=== PATIENT | male | born 1965 | race African-American/Black ===

== ENCOUNTER 2016-12-09 07:11 | Inpatient (IN) | payer OTHER ==
[2016-12-09] VITALS (11 sets, daily range): BP systolic 124–169; BP diastolic 73–97; PULSE 78–101; RESP 16–18; TEMP 98.1–99.6; O2SAT 92–100
[~2016-12-09] VITALS: Ht 182.9 cm; Wt 81.9 kg
[2016-12-09] MEDS ORDERED: SODIUM CHLOR 0.9% 1000 ML INJ 1,000 ML IV SCH (07:46)
--- NOTE | 2016-12-09 07:47 | PD ---
HPI Chief Complaint: GI Complaint Time Seen by Provider: 07:25 Travel History International Travel<30 days: No Contact w/Intl Traveler<30days: No Traveled to known affect area: No History of Present Illness HPI Patient is a 51-year-old male presents emergency department for nausea and vomiting for the past 7-8 days. Patient states 7-8 days ago he ate some and tachycardia fried chicken and then started to feel fairly bad from it and the symptoms just been gradually worse. He states this point is not able to keep anything down. On review of systems the patient also endorses some increased abdominal distention and states he's been sweaty and hot occasionally but has not had any objective fevers at home. Patient states he has been diagnosed prediabetic but otherwise healthy and does not take any medicines. Denies any hematemesis denied any hematochezia. [facility] Past Medical History Medical History: Denies Significant Hx Influenza Vaccination: No Past Surgical History Surgical History: No Previous Surgery Social History Alcohol Use: Yes (OCCAS BEER) Tobacco Use: Yes Substance Use: No Allergies-Medications (Allergen,Severity, Reaction): Coded Allergies: No Known Allergies (Verified Allergy, Unknown, 12/09/16) Reported Meds & Prescriptions Reported Meds & Active Scripts Active No Active Prescriptions or Reported Medications Review of Systems Except as stated in HPI: all other systems reviewed are Neg Physical Exam Narrative GENERAL: Well-developed well-nourished, appears fairly comfortable. Nontoxic appearance. SKIN: Focused skin assessment warm/dry. HEAD: Atraumatic. Normocephalic. EYES: Pupils equal and round. No scleral icterus. No injection or drainage. ENT: No nasal bleeding or discharge. Mucous membranes pink and moist. NECK: Trachea midline. No JVD. CARDIOVASCULAR: Regular rate and rhythm. No murmur appreciated. RESPIRATORY: No accessory muscle use. Clear to auscultation. Breath sounds equal bilaterally. GASTROINTESTINAL: Abdomen soft, minimally tender in the right lower and left lower quadrant, mildly distended.. Hepatic and splenic margins not palpable. No rebound no percussive tenderness. MUSCULOSKELETAL: No obvious deformities. No clubbing. No cyanosis. No edema. NEUROLOGICAL: Awake and alert. No obvious cranial nerve deficits. Motor grossly within normal limits. Normal speech. PSYCHIATRIC: Appropriate mood and affect; insight and judgment normal. Data Data Last Documented VS Vital Signs Date Time Temp Pulse Resp B/P (MAP) Pulse Ox O2 Delivery O2 Flow Rate FiO2 12/09/16 09:34 82 18 152/80 (104) 98 Room Air 12/09/16 07:16 98.1 Orders Orders Complete Blood Count With Diff (12/09/16 07:46) Comprehensive Metabolic Panel (12/09/16 07:46) Lipase (12/09/16 07:46) Iv Access Insert/Monitor (12/09/16 07:46) Ecg Monitoring (12/09/16 07:46) Oximetry (12/09/16 07:46) Ondansetron Inj (Zofran Inj) (12/09/16 08:00) Sodium Chlor 0.9% 1000 Ml Inj (Ns 1000 M (12/09/16 07:46) Sodium Chloride 0.9% Flush (Ns Flush) (12/09/16 08:00) Abdomen, Upright Only (12/09/16 07:46) Ketorolac Inj (Toradol Inj) (12/09/16 08:00) Ct Abd/Pel W Iv Contrast(Rout) (12/09/16 ) Blood Culture (12/09/16 08:49) Lactic Acid (12/09/16 08:49) Vancomycin Inj (Vancomycin Inj) (12/09/16 09:00) Piperacil-Tazo 4.5 Gm Premix (Zosyn 4.5 (12/09/16 09:00) Sodium Chlor 0.9% 1000 Ml Inj (Ns 1000 M (12/09/16 09:00) Iohexol 350 Inj (Omnipaque 350 Inj) (12/09/16 08:50) Admit Order (Ed Use Only) (12/09/16 ) Labs Laboratory Tests Test 12/09/16 08:04 12/09/16 09:20 White Blood Count 15.9 TH/MM3 Red Blood Count 4.72 MIL/MM3 Hemoglobin 13.3 GM/DL Hematocrit 40.0 % Mean Corpuscular Volume 84.8 FL Mean Corpuscular Hemoglobin 28.2 PG Mean Corpuscular Hemoglobin Concent 33.3 % Red Cell Distribution Width 12.8 % Platelet Count 364 TH/MM3 Mean Platelet Volume 8.2 FL Neutrophils (%) (Auto) 79.5 % Lymphocytes (%) (Auto) 11.3 % Monocytes (%) (Auto) 7.5 % Eosinophils (%) (Auto) 0.0 % Basophils (%) (Auto) 1.7 % Neutrophils # (Auto) 12.6 TH/MM3 Lymphocytes # (Auto) 1.8 TH/MM3 Monocytes # (Auto) 1.2 TH/MM3 Eosinophils # (Auto) 0.0 TH/MM3 Basophils # (Auto) 0.3 TH/MM3 CBC Comment DIFF FINAL Differential Comment Blood Urea Nitrogen 13 MG/DL Creatinine 1.30 MG/DL Random Glucose 335 MG/DL Total Protein 8.8 GM/DL Albumin 2.2 GM/DL Calcium Level 9.0 MG/DL Alkaline Phosphatase 164 U/L Aspartate Amino Transf (AST/SGOT) 20 U/L Alanine Aminotransferase (ALT/SGPT) 24 U/L Total Bilirubin 0.4 MG/DL Sodium Level 129 MEQ/L Potassium Level 3.7 MEQ/L Chloride Level 91 MEQ/L Carbon Dioxide Level 29.9 MEQ/L Anion Gap 8 MEQ/L Estimat Glomerular Filtration Rate 70 ML/MIN Lipase 409 U/L Lactic Acid Level 1.4 mmol/L MDM Medical Decision Making Medical Screen Exam Complete: Yes Emergency Medical Condition: Yes Differential Diagnosis Diverticulitis, appendicitis, small bowel obstruction, dehydration, electro- light abnormality. Narrative Course Patient roomed in emergency department, patient does have some mild distention and some mild tenderness with some voluntary guarding and there are quadrants. Overall the patient appears fairly well. Patient does have minimally elevated white blood cell count, small bowel obstruction was concern is patient does have decreased bowel sounds. Upright abdomen does show a nonspecific but slightly abnormal bowel gas pattern. Given his distention at the CAT scan imaging is warranted and was performed: Last 24 hours Impressions Abdomen X-Ray 12/09/16 0746 Signed Impressions: Service Date/Time: Friday, December 09, 2016 07:54 - CONCLUSION: There is no free air or definite signs of small bowel obstruction. However, the small bowel gas pattern is not completely normal. Consider followup to ensure resolution. Behzad Gutierrez MD Abdomen/Pelvis CT 12/09/16 0000 Signed Impressions: Service Date/Time: Friday, December 09, 2016 08:33 - CONCLUSION: 1. There is a 10.8 cm extraluminal air and fluid collection/abscess in the upper pelvis. This is likely related to some type of bowel perforation. This could be related to a loculated perforated appendicitis or potentially small bowel perforation from ruptured diverticulum or uncertain etiology. It does not appear to be related to sigmoid diverticulitis. Suggest surgical consultation. This may be accessible on the left lateral pelvis for percutaneous drainage, if needed. 2. There are 2 hypodense lesions in the right liver measuring up to 2 cm which are incompletely characterized and do not meet criteria for cysts or hemangiomas on this exam. Suggest clinical or imaging studies. If none are available suggest either liver ultrasound or liver MRI for further characterization. These findings were discussed with Dr. Schumacher via telephone at the time of this dictation. Behzad Gutierrez MD Patient was discussed with Dr. Swartz as well as Dr. Malagon. Dr. Warner will admit to the hospital agrees with vancomycin and Zosyn. He requests IR intervention and this was discussed again with Dr. Swartz. Patient will be transferred to the main hospital for further surgical interventional radiology management. Critical Care Narrative Aggregate critical care time was 35 minutes. Time to perform other separately billable procedures was not included in the critical care time. My time did not include minutes spent treating any other patients simultaneously or on activities that did not directly contribute to the patient's treatment. The services I provided to this patient were to treat and/or prevent clinically significant deterioration that could result in: , disability, organ failure. I provided critical care services requiring my management, as noted below: Chart data review, documentation time, medication orders and management, vital sign assessments/reviewing monitor data, ordering and reviewing lab tests, ordering and interpreting/reviewing x-rays and diagnostic studies, care of the patient and discussion of the patient with the admitting physicians. Diagnosis Primary Impression: Sepsis Additional Impression: Intra-abdominal abscess Scripts No Active Prescriptions or Reported Meds Disposition: 01 DISCHARGE HOME Condition: Stable Devan Schumacher MD Dec 09, 2016 07:47
[2016-12-09] MEDS ORDERED: ONDANSETRON HCL 4 MG/2 ML VIAL IVP ONE (08:00)
[2016-12-09] MEDS ORDERED: KETOROLAC TROMETHAMINE 30 MG/ML (IVP) VIAL IVP ONE (08:00)
--- NOTE | 2016-12-09 08:06 | RADRPT ---
EXAM DATE/TIME: 12/09/2016 07:54 [facility] COMPARISON: No previous studies available for comparison. INDICATIONS : Abdomen pain, nausea, vomiting MEDICAL HISTORY : None. SURGICAL HISTORY : None. ENCOUNTER: Initial ACUITY: 1 week PAIN SCORE: 10/10 LOCATION: Bilateral abdomen FINDINGS: Single upright view the abdomen demonstrates air within small and large bowel in a nonobstructive pat tern. However, there is more air in the small bowel than typically seen. Air-fluid level is present w ithin a segment of bowel in the upper pelvis which could represent colon or small intestine. Air-flui d level is present in the stomach. There is no free intraperitoneal air. No concerning calcifications are identified. Bones demonstrate no acute abnormality. Lung bases are clear. CONCLUSION: There is no free air or definite signs of small bowel obstruction. However, the small bowel gas patte rn is not completely normal. Consider followup to ensure resolution. Behzad Gutierrez MD on December 09, 2016 at 8:03 Board Certified Radiologist. This report was verified electronically.
[2016-12-09] MEDS: SODIUM CHLORIDE 0.9% FLUSH 10 ML FLUSH IV FLUSH PRN ×2 (08:13→10:37)
[2016-12-09 08:16] LABS: AUTOMATED NEUTROPHIL # 12.6 TH/MM3 (1.8-7.7); BASOPHIL # 0.3 TH/MM3 (0-0.2); BASOPHIL % 1.7 % (0.0-2.0); LYMPH % 11.3 % (9.0-44.0); LYMPHOCYTE # 1.8 TH/MM3 (1.0-4.8); MEAN CELL VOLUME 84.8 FL (80.0-100.0); MEAN CORPUSCULAR HEMOGLOBIN 28.2 PG (27.0-34.0); MEAN CORPUSCULAR HGB CONC 33.3 % (32.0-36.0); MONO % 7.5 % (0.0-8.0); NEUT % 79.5 % (16.0-70.0); PLATELET COUNT 364 TH/MM3 (150-450); RED BLOOD COUNT 4.72 MIL/MM3 (4.50-5.90); RED CELL DISTRIBUTION WIDTH 12.8 % (11.6-17.2); WHITE BLOOD COUNT 15.9 TH/MM3 (4.0-11.0)
[2016-12-09 08:17] LABS: HEMO FLAGS DIFF FINAL
[2016-12-09 08:21] LABS: CHLORIDE 91 MEQ/L (98-107); POTASSIUM 3.7 MEQ/L (3.5-5.1); SODIUM (NA) 129 MEQ/L (136-145)
[2016-12-09 08:25] LABS: ANION GAP 8 MEQ/L (5-15); BICARBONATE 29.9 MEQ/L (21.0-32.0); BLOOD UREA NITROGEN 13 MG/DL (7-18)
[2016-12-09 08:28] LABS: ALT (GPT) 24 U/L (12-78); AST (GOT) 20 U/L (15-37); GLOMERULAR FILTRATION RATE 70 ML/MIN (>89)
[2016-12-09 08:29] LABS: TOTAL BILIRUBIN ADULT 0.4 MG/DL (0.2-1.0)
[2016-12-09 08:31] LABS: ALKALINE PHOSPHATASE 164 U/L (45-117)
[2016-12-09] MEDS ORDERED: IOHEXOL 350 MG/ML 10 ML VIAL (for RAD DIAG) IV PUSH ONE (08:50)
[2016-12-09] MEDS ORDERED: PIPERACIL-TAZO 4.5 GM PREMIX 100 ML IV ONE (09:00)
[2016-12-09] MEDS ORDERED: SODIUM CHLOR 0.9% 1000 ML INJ 1,000 ML IV ONE (09:00)
[2016-12-09] MEDS ORDERED: VANCOMYCIN INJ 1,000 MG in SODIUM CHLOR 0.9% 250 ML INJ 250 ML IV ONE (09:00)
--- NOTE | 2016-12-09 09:02 | RADRPT ---
EXAM DATE/TIME: 12/09/2016 08:33 [facility] COMPARISON: ABDOMEN UPRIGHT ONLY, December 09, 2016, 7:54. INDICATIONS : Abdomen pain. IV CONTRAST: 80 cc Omnipaque 350 (iohexol) IV ORAL CONTRAST: No oral contrast ingested. RADIATION DOSE: 8.9 CTDIvol (mGy) MEDICAL HISTORY : None SURGICAL HISTORY : None. ENCOUNTER: Initial ACUITY: 1 week PAIN SCALE: 5/10 LOCATION: Bilateral abdomen TECHNIQUE: Volumetric scanning of the abdomen and pelvis was performed. Using automated exposure control and ad justment of the mA and/or kV according to patient size, radiation dose was kept as low as reasonably achievable to obtain optimal diagnostic quality images. DICOM format image data is available electro nically for review and comparison. FINDINGS: LOWER LUNGS: The visualized lower lungs are clear. LIVER: The liver measures 22.3 cm and contains 2 low-density lesions in the right lobe that do not meet crit eria for cysts or hemangiomas. The more anterior and superior measures 14 mm and the more posterior m easures 2 cm. There are small stones in the gallbladder There is no dilation of the biliary tree. . SPLEEN: Normal size without lesion. PANCREAS: Within normal limits. KIDNEYS: Normal in size and shape. There is no mass, stone or hydronephrosis. ADRENAL GLANDS: Within normal limits. VASCULAR: There is no aortic aneurysm. There is mild atherosclerotic disease and retroperitoneal inflammatory c hanges around the infrarenal aorta and LATHA secondary to the extraluminal air and fluid collection. BOWEL/MESENTERY: The stomach and proximal small bowel are within normal limits. There is an extraluminal air and fluid collection in the inferior abdomen and upper pelvis measuring approximately 10.8 x 8.6 x 9.3 cm. It contains fluid and fecal like material and demonstrates air-fluid level. There is small bowel draped around the anterior and right lateral aspect of the fluid collection and the collection abuts the cec um. It is adjacent to the sigmoid colon which may be secondarily inflamed but no diverticula are visu alized and there is a fat plane between the collection and sigmoid colon. There are a few mildly enla rged a small bowel mesenteric lymph nodes which are likely reactive. There are no signs of bowel obst ruction. Trace free fluid is present in the pelvis. ABDOMINAL WALL: Within normal limits. RETROPERITONEUM: There is no lymphadenopathy. BLADDER: No wall thickening or mass. REPRODUCTIVE: Within normal limits. INGUINAL: There is no lymphadenopathy. There is a small fat containing right inguinal hernia. MUSCULOSKELETAL: No acute abnormality. CONCLUSION: 1. There is a 10.8 cm extraluminal air and fluid collection/abscess in the upper pelvis. This is like ly related to some type of bowel perforation. This could be related to a loculated perforated appendi citis or potentially small bowel perforation from ruptured diverticulum or uncertain etiology. It avila s not appear to be related to sigmoid diverticulitis. Suggest surgical consultation. This may be acce ssible on the left lateral pelvis for percutaneous drainage, if needed. 2. There are 2 hypodense lesions in the right liver measuring up to 2 cm which are incompletely mk cterized and do not meet criteria for cysts or hemangiomas on this exam. Suggest clinical or imaging studies. If none are available suggest either liver ultrasound or liver MRI for further characterizat ion. These findings were discussed with Dr. Schumacher via telephone at the time of this dictation. Behzad Gutierrez MD on December 09, 2016 at 8:47 Board Certified Radiologist. This report was verified electronically.
[2016-12-09] MEDS: SODIUM CHLOR 0.9% 1000 ML INJ 1,000 ML IV SCH ×2 (12:56→23:41)
[2016-12-09] MEDS ORDERED: SODIUM CHLORIDE 0.9% FLUSH 10 ML FLUSH IV FLUSH PRN (13:00)
[2016-12-09] MEDS ORDERED: NALOXONE HCL 0.4 MG/ML AMP IV PRN (13:00)
[2016-12-09] MEDS ORDERED: ONDANSETRON HCL 4 MG/2 ML VIAL IV PRN (13:00)
[2016-12-09] MEDS ORDERED: Post-op Orders (for Pharmacy) MISC XX ONE (13:00)
[2016-12-09] MEDS ORDERED: MORPHINE SULFATE 4 MG/ML INJ IV PRN (13:00)
--- NOTE | 2016-12-09 13:16 | MH ---
cc: MILI AYALA MD DATE OF ADMISSION: 12/09/2016 ADMITTING DIAGNOSIS: Intra-abdominal abscess, large bowel perforation, sepsis, abdominal pain, HISTORY OF PRESENT DISEASE: This 51-year-old male presents to the [facility] emergency room with 1-week history of severe abdominal pain. The patient states he ate some sort of chicken a week ago, became violently ill, had abdominal pain, nausea and diarrhea. The diarrhea stopped, yet the pain is still severe and the patient finally presented to the emergency room. On workup he was found to have intra-abdominal interloop abscess and he is now being admitted for further care. PAST MEDICAL HISTORY, PAST SURGICAL HISTORY: Negative. MEDICATIONS: None. ALLERGIES: None. SOCIAL HISTORY: The patient works as a cook. He smokes and drinks socially. PHYSICAL EXAMINATION: Reveals a 51 year-old male in no acute distress. HEENT: Normocephalic. No trauma to the head. Pupils equal and reactive. Extraocular movements intact. NECK: Supple. Bilateral carotid pulses. CHEST: Clear. Bilateral breath sounds. HEART: Regular rhythm. ABDOMEN: Soft. Hypoactive bowel sounds. On palpation, very tender in the pelvis and there is a mass noted in the infraumbilical position and midline. If I did not know better, I would think it is a distended bladder but obviously in this case this is an interloop abdominal abscess which is easily palpable by the exam. No splenomegaly. No hepatosplenomegaly. EXTREMITIES: Within normal limits including proximal and distal pulses. No vascular deficit. BACK: Normal. LABORATORY DATA: Reviewed laboratory diagnostic procedures. ASSESSMENT AND PLAN: The patient had CTA of the abdomen and pelvis which confirms the same. There is an interloop abscess measuring about 10 cm in diameter, fairly well defined. My first thought this may be a perforated Meckel's diverticulum but then again it could also be a perforation from different source, like fish bone or chicken bone as well as possibly perforated diverticulitis or more likely appendicitis. Unusual causes like a unrecognized occult malignancy have to be considered as well. Either way, at this point the therapy is the same. The patient needs CT guided aspiration of the same. He will be placed on intravenous antibiotics and then in the next few days will do upper GI study with small bowel follow-through and see where this is coming from. In the future the patient will need surgery for this and the only question is when and which procedure, but this will be determined in the future. At this point the patient needs to be admitted, treated with antibiotics and have aspiration. Mili SALAS /12:53 PM /1:04 PM MARIYA
[2016-12-09 14:16] LABS: INTERNATIONAL NORMALIZED RATIO 1.1 RATIO
[2016-12-09] MEDS ORDERED: LIDOCAINE HCL 1% 20 ML VIAL ONE (16:54)
[2016-12-09] MEDS ORDERED: MIDAZOLAM HCL 2 MG/2 ML VIAL ONE (17:00)
--- NOTE | 2016-12-09 18:27 | PD.RAD ---
Post CT Procedure Prog Note Pre Procedure Diagnosis: (1) Intra-abdominal abscess (2) Sepsis Post Procedure Diagnosis: (1) Intra-abdominal abscess (2) Sepsis Procedure Date: Dec 09, 2016 Supervising Radiologist: Kirt Angeles Anesthesia: Local, Analgesia, Conscious Sedation Plan of Activity Patient to Unit: [facility]OPU Patient Condition: Good See PACS Report for procedural detail/treatment Drainage Procedure Procedure 1 Imaging Guidance: CT Side: Left Procedure Type: Abscess Drainage (Peritoneal) Procedure: Placement Urdu: 10 Drainage: Suction (Accordian) Fluid Description: Purulent Findings: 10cc aspirated and sent to Kirt Fletcher MD Dec 09, 2016 18:27
--- NOTE | 2016-12-09 18:53 | RADRPT ---
EXAM DATE/TIME: 12/09/2016 17:41 [facility] COMPARISON: No previous studies available for comparison. INDICATIONS : Abdominal abscess. SEDATION TIME: MEDICATION(S): 1.) 2 mg midazolam (Versed) IV 2.) 100 mcg fentanyl (Sublimaze) IV DEVICE(S): 1.) 10 Fr [id number] FLUID: Total volume of 10 cc of couch, purulent fluid was removed. Fluid was sent for laboratory ordered studies. MEDICAL HISTORY : None. SURGICAL HISTORY : None. ENCOUNTER: Initial ACUITY: 1 day PAIN SCORE: 6/10 LOCATION: abdomen PROCEDURE: 1.) Conscious sedation with continuous EKG and oximetry monitoring. 2.) EKG and oximetry remained stable throughout the procedure. PROCEDURE : 1. CT guided drainage of the peritoneal abscess 2. Conscious sedation with continuous EKG and oximetry monitoring. The risks, benefits and alternatives to the procedure were explained and verbal and written consent w as obtained. Using automated exposure control and adjustment of the mA and/or kV according to patient size, radiation dose was kept as low as reasonably achievable to obtain optimal diagnostic quality i mages. The site was prepped in sterile fashion. Full sterile technique was used, including cap, ma sk, sterile gloves and gown and a large sterile sheet. Hand hygiene and 2% chlorhexidine and/or beta dine/alcohol prep was utilized per protocol for cutaneous antisepsis. The skin and subcutaneous tiss ues were infiltrated with local anesthetic solution. DICOM format image data is available electronic ally for review and comparison. Using CT guidance the prescribed site was localized. Drainage was performed using the prescribed cat heter The patient tolerated the procedure well and there were no complications. Conscious sedation was per formed with the prescribed dosages and duration as above in the presence of an independent trained ra diology nurse to assist in the monitoring of the patient. EKG and oximetry remained stable throughou t the procedure. The patient tolerated the procedure well and there were no complications. The patient was sent to pos t anesthesia recovery in stable condition. CONCLUSION: Uncomplicated CT guided drainage. 10 cc of couch, purulent fluid was aspirated from the catheter and sent to laboratory for analysis Kirt Angeles MD on December 09, 2016 at 18:49 Board Certified Radiologist. This report was verified electronically.
[2016-12-09] MEDS: PIPERACIL-TAZO 3.375 GM PREMIX 50 ML IV SCH (20:40)
[2016-12-09] MEDS: SODIUM CHLORIDE 0.9% FLUSH 10 ML FLUSH IV FLUSH SCH (20:41)
[2016-12-09] MEDS: DOCUSATE SODIUM 100 MG CAP PO SCH (20:41)
[2016-12-09] MEDS: FAMOTIDINE 20 MG TAB PO SCH (20:41)
[2016-12-09] MEDS ORDERED: ACETAMINOPHEN 1000 MG/100 ML VIAL IV PRN (22:00)
[2016-12-09] MEDS: VANCOMYCIN INJ 1,000 MG in SODIUM CHLOR 0.9% 250 ML INJ 250 ML IV SCH (23:41)
[2016-12-10] VITALS (7 sets, daily range): BP systolic 99–158; BP diastolic 59–82; PULSE 83–106; RESP 18; TEMP 98.2–100.2; O2SAT 95–98
[2016-12-10] MEDS: oxyCODONE/ACETAMINOPHEN 5 MG/325 MG TAB PO PRN ×4 (01:06→23:54)
[2016-12-10] MEDS: PIPERACIL-TAZO 3.375 GM PREMIX 50 ML IV SCH ×3 (01:06→17:54)
[2016-12-10 07:22] LABS: AUTOMATED NEUTROPHIL # 8.5 TH/MM3 (1.8-7.7); BASOPHIL % 0.3 % (0.0-2.0); HEMATOCRIT 36.4 % (39.0-51.0); HEMO FLAGS DIFF FINAL; LYMPH % 18.9 % (9.0-44.0); LYMPHOCYTE # 2.2 TH/MM3 (1.0-4.8); MEAN CELL VOLUME 86.5 FL (80.0-100.0); MEAN CORPUSCULAR HGB CONC 32.3 % (32.0-36.0); MONO % 7.7 % (0.0-8.0); NEUT % 73.1 % (16.0-70.0); PLATELET COUNT 304 TH/MM3 (150-450); RED BLOOD COUNT 4.21 MIL/MM3 (4.50-5.90); WHITE BLOOD COUNT 11.6 TH/MM3 (4.0-11.0)
[2016-12-10 07:35] LABS: INDIRECT BILIRUBIN 0.4 MG/DL (0.0-0.8); TOTAL BILIRUBIN ADULT 0.7 MG/DL (0.2-1.0)
[2016-12-10] MEDS: SODIUM CHLOR 0.9% 1000 ML INJ 1,000 ML IV SCH ×2 (08:56→17:55)
[2016-12-10] MEDS: SODIUM CHLORIDE 0.9% FLUSH 10 ML FLUSH IV FLUSH SCH ×2 (09:00→20:31)
[2016-12-10] MEDS: SODIUM CHLORIDE 0.9% 10 ML VIAL IRRIGATION SCH (09:00)
[2016-12-10] MEDS: FAMOTIDINE 20 MG TAB PO SCH ×2 (09:50→20:32)
[2016-12-10] MEDS: DOCUSATE SODIUM 100 MG CAP PO SCH ×2 (09:50→20:32)
[2016-12-10] MEDS: VANCOMYCIN INJ 1,000 MG in SODIUM CHLOR 0.9% 250 ML INJ 250 ML IV SCH ×2 (11:42→23:55)
--- NOTE | 2016-12-10 11:53 | PD.CAR.PN ---
CVT Progress Note Subjective/Hospital Course: 12/10/16 Patient doing well at this time Abdomen soft with active bowel sounds and grayish yellow pus draining from the percutaneously placed pigtail catheter Will repeat CT scan of abdomen and pelvis or Saturday, but this time with oral contrast to better delineate the source of this abscess Its my opinion is probably arising either from appendix or Meckel's diverticulum the latter being most likely Antibiotic regimen reinforced with nurses today Objective: Vital Signs Date Time Temp Pulse Resp B/P (MAP) Pulse Ox O2 Delivery O2 Flow Rate FiO2 12/10/16 08:00 98.2 88 18 126/79 (95) 95 12/10/16 04:10 98.2 94 18 99/59 (72) 95 12/10/16 00:20 100.2 106 18 145/65 (91) 95 12/09/16 20:15 99.4 88 18 124/77 (93) 96 12/09/16 19:35 87 18 153/88 (109) 92 12/09/16 19:20 18 12/09/16 19:05 87 18 153/73 (99) 92 12/09/16 18:40 88 18 166/83 (110) 92 12/09/16 18:25 99.5 88 18 169/97 (121) 93 12/09/16 16:00 99.6 87 18 143/82 (102) 98 12/09/16 12:00 99.2 78 18 130/85 (100) 99 Labs: Laboratory Tests Test 12/10/16 06:35 White Blood Count 11.6 TH/MM3 (4.0-11.0) Red Blood Count 4.21 MIL/MM3 (4.50-5.90) Hemoglobin 11.8 GM/DL (13.0-17.0) Hematocrit 36.4 % (39.0-51.0) Mean Corpuscular Volume 86.5 FL (80.0-100.0) Mean Corpuscular Hemoglobin 28.0 PG (27.0-34.0) Mean Corpuscular Hemoglobin Concent 32.3 % (32.0-36.0) Red Cell Distribution Width 14.0 % (11.6-17.2) Platelet Count 304 TH/MM3 (150-450) Mean Platelet Volume 8.6 FL (7.0-11.0) Neutrophils (%) (Auto) 73.1 % (16.0-70.0) Lymphocytes (%) (Auto) 18.9 % (9.0-44.0) Monocytes (%) (Auto) 7.7 % (0.0-8.0) Eosinophils (%) (Auto) 0.0 % (0.0-4.0) Basophils (%) (Auto) 0.3 % (0.0-2.0) Neutrophils # (Auto) 8.5 TH/MM3 (1.8-7.7) Lymphocytes # (Auto) 2.2 TH/MM3 (1.0-4.8) Monocytes # (Auto) 0.9 TH/MM3 (0-0.9) Eosinophils # (Auto) 0.0 TH/MM3 (0-0.4) Basophils # (Auto) 0.0 TH/MM3 (0-0.2) CBC Comment DIFF FINAL Differential Comment Total Bilirubin 0.7 MG/DL (0.2-1.0) Direct Bilirubin 0.3 MG/DL (0.0-0.2) Indirect Bilirubin 0.4 MG/DL (0.0-0.8) Aspartate Amino Transf (AST/SGOT) 17 U/L (15-37) Alanine Aminotransferase (ALT/SGPT) 20 U/L (12-78) Alkaline Phosphatase 137 U/L (45-117) Total Protein 7.4 GM/DL (6.4-8.2) Albumin 1.8 GM/DL (3.4-5.0) Result Diagram: 12/10/16 0635 12/09/16 0804 Mili Armenta MD Dec 10, 2016 11:53
--- NOTE | 2016-12-10 13:51 | EKG ---
Date Performed: 12/09/2016 Time Performed: 11:08:04 PTAGE: 51 years EKG: Sinus rhythm NONSPECIFIC T-WAVE ABNORMALITY BORDERLINE ECG NO PREVIOUS TRACING DOCTOR: Fransisco Wright Interpretating Date/Time 12/10/2016 13:50:21
[2016-12-11 00:15] VITALS: BP 128/76; PULSE 86; RESP 18; TEMP 98.2; O2SAT 95
[2016-12-11] MEDS: PIPERACIL-TAZO 3.375 GM PREMIX 50 ML IV SCH ×3 (02:50→18:00)
[2016-12-11] MEDS: SODIUM CHLOR 0.9% 1000 ML INJ 1,000 ML IV SCH ×2 (05:36→14:56)
[2016-12-11] MEDS: oxyCODONE/ACETAMINOPHEN 5 MG/325 MG TAB PO PRN ×3 (07:03→21:05)
[2016-12-11 08:28] VITALS: BP 150/83; PULSE 96; RESP 20; TEMP 97.9; O2SAT 95
[2016-12-11] MEDS: FAMOTIDINE 20 MG TAB PO SCH ×2 (08:42→21:04)
[2016-12-11] MEDS: DOCUSATE SODIUM 100 MG CAP PO SCH ×2 (08:42→21:04)
[2016-12-11] MEDS: SODIUM CHLORIDE 0.9% FLUSH 10 ML FLUSH IV FLUSH SCH ×2 (08:43→21:04)
[2016-12-11 10:23] VITALS: PULSE 98
[2016-12-11] MEDS: VANCOMYCIN INJ 1,000 MG in SODIUM CHLOR 0.9% 250 ML INJ 250 ML IV SCH (10:55)
[2016-12-11 12:00] VITALS: BP 173/89; PULSE 92; RESP 20; TEMP 97.3; O2SAT 98
--- NOTE | 2016-12-11 13:42 | PD.CAR.PN ---
CVT Progress Note Subjective/Hospital Course: 12/10/16 Patient doing well at this time Abdomen soft with active bowel sounds and grayish yellow pus draining from the percutaneously placed pigtail catheter Will repeat CT scan of abdomen and pelvis or Saturday, but this time with oral contrast to better delineate the source of this abscess Its my opinion is probably arising either from appendix or Meckel's diverticulum the latter being most likely Antibiotic regimen reinforced with nurses today 12/11/16 Patient doing well at this time Abdomen is soft with active bowel sounds and pigtail catheter is draining purulent material We will order CT of abdomen and pelvis with oral contrast for in see how much of this is remaining and how to proceed further Objective: Vital Signs Date Time Temp Pulse Resp B/P (MAP) Pulse Ox O2 Delivery O2 Flow Rate FiO2 12/11/16 12:00 97.3 92 20 173/89 (117) 98 12/11/16 10:23 98 12/11/16 08:28 97.9 96 20 150/83 (105) 95 12/11/16 00:15 98.2 86 18 128/76 (93) 95 12/10/16 20:17 98.4 89 18 126/73 (90) 95 12/10/16 19:35 83 12/10/16 16:00 99.3 90 18 158/82 (107) 95 Result Diagram: 12/10/16 0635 12/09/16 0804 Mili Armenta MD Dec 11, 2016 13:42
[2016-12-11] MEDS: SODIUM CHLORIDE 0.9% 10 ML VIAL IRRIGATION SCH (13:50)
[2016-12-11 16:00] VITALS: BP 172/85; PULSE 92; RESP 20; TEMP 99.3; O2SAT 96
[2016-12-11 20:00] VITALS: BP 160/89; PULSE 94; RESP 18; TEMP 98.6; O2SAT 95
[2016-12-11] MEDS: METOPROLOL SUCCINATE 25 MG EXTENDED RELEASE TAB PO SCH (21:09)
[2016-12-11] MEDS: LISINOPRIL 10 MG TAB PO SCH (21:09)
[2016-12-12] VITALS (8 sets, daily range): BP systolic 116–187; BP diastolic 64–93; PULSE 81–101; RESP 17–18; TEMP 98–99.3; O2SAT 94–97
[2016-12-12] MEDS: VANCOMYCIN INJ 1,000 MG in SODIUM CHLOR 0.9% 250 ML INJ 250 ML IV SCH ×2 (00:38→11:26)
[2016-12-12] MEDS: SODIUM CHLOR 0.9% 1000 ML INJ 1,000 ML IV SCH ×3 (00:56→20:56)
[2016-12-12] MEDS: PIPERACIL-TAZO 3.375 GM PREMIX 50 ML IV SCH ×3 (02:39→17:04)
[2016-12-12] MEDS: oxyCODONE/ACETAMINOPHEN 5 MG/325 MG TAB PO PRN ×3 (02:59→17:04)
[2016-12-12] MEDS: FAMOTIDINE 20 MG TAB PO SCH ×2 (09:19→21:04)
[2016-12-12] MEDS: LISINOPRIL 10 MG TAB PO SCH (09:19)
[2016-12-12] MEDS: DOCUSATE SODIUM 100 MG CAP PO SCH ×2 (09:19→21:04)
[2016-12-12] MEDS: METOPROLOL SUCCINATE 25 MG EXTENDED RELEASE TAB PO SCH (09:19)
[2016-12-12] MEDS: SODIUM CHLORIDE 0.9% 10 ML VIAL IRRIGATION SCH (09:20)
[2016-12-12] MEDS: SODIUM CHLORIDE 0.9% FLUSH 10 ML FLUSH IV FLUSH SCH ×2 (09:20→21:00)
--- NOTE | 2016-12-12 11:19 | PD.CAR.PN ---
CVT Progress Note Subjective/Hospital Course: 12/10/16 Patient doing well at this time Abdomen soft with active bowel sounds and grayish yellow pus draining from the percutaneously placed pigtail catheter Will repeat CT scan of abdomen and pelvis or Saturday, but this time with oral contrast to better delineate the source of this abscess Its my opinion is probably arising either from appendix or Meckel's diverticulum the latter being most likely Antibiotic regimen reinforced with nurses today 12/11/16 Patient doing well at this time Abdomen is soft with active bowel sounds and pigtail catheter is draining purulent material We will order CT of abdomen and pelvis with oral contrast for in see how much of this is remaining and how to proceed further 12/12/16 Patient doing very well Abdomen soft with active bowel sounds and mid abdominal masses deflated and almost gone although there must be still some purulent material in it Pigtail catheter still draining some purulent material Patient having several bowel movements and last few days which is semisolid and GI function is fully reestablished CT abdomen and pelvis with by mouth and IV contrast tomorrow to assess for residual presence of this collection and then decide which way to go with therapy Objective: Vital Signs Date Time Temp Pulse Resp B/P (MAP) Pulse Ox O2 Delivery O2 Flow Rate FiO2 12/12/16 10:40 86 12/12/16 09:26 98.5 81 17 155/78 (103) 94 12/12/16 04:00 98.4 101 18 116/64 (81) 97 12/12/16 00:00 98.0 83 18 135/75 (95) 96 12/11/16 20:00 98.6 94 18 160/89 (112) 95 12/11/16 16:00 99.3 92 20 172/85 (114) 96 12/11/16 12:00 97.3 92 20 173/89 (117) 98 Result Diagram: 12/10/16 0635 12/09/16 0804 Mili Armenta MD Dec 12, 2016 11:19
[2016-12-13] VITALS (7 sets, daily range): BP systolic 133–210; BP diastolic 79–104; PULSE 71–94; RESP 18–20; TEMP 98–98.8; O2SAT 94–97
[2016-12-13] MEDS: VANCOMYCIN INJ 1,000 MG in SODIUM CHLOR 0.9% 250 ML INJ 250 ML IV SCH ×3 (01:08→23:17)
[2016-12-13] MEDS: PIPERACIL-TAZO 3.375 GM PREMIX 50 ML IV SCH ×3 (02:18→18:43)
[2016-12-13] MEDS: ENALAPRILAT 1.25 MG/ML VIAL IV PUSH PRN ×3 (02:18→21:06)
[2016-12-13] MEDS: SODIUM CHLOR 0.9% 1000 ML INJ 1,000 ML IV SCH ×2 (06:56→16:56)
[2016-12-13] MEDS: DOCUSATE SODIUM 100 MG CAP PO SCH ×2 (09:00→21:00)
[2016-12-13] MEDS: SODIUM CHLORIDE 0.9% 10 ML VIAL IRRIGATION SCH (09:00)
[2016-12-13] MEDS: LISINOPRIL 10 MG TAB PO SCH (09:29)
[2016-12-13] MEDS: METOPROLOL SUCCINATE 25 MG EXTENDED RELEASE TAB PO SCH (09:29)
[2016-12-13] MEDS: FAMOTIDINE 20 MG TAB PO SCH ×2 (09:29→21:03)
[2016-12-13] MEDS: SODIUM CHLORIDE 0.9% FLUSH 10 ML FLUSH IV FLUSH SCH ×2 (09:31→21:03)
[2016-12-13] MEDS ORDERED: DIATRIZOATE MEGLUM/DIATRIZOATE SOD 9 ML CUP PO ONE (09:33)
[2016-12-13] MEDS ORDERED: LOPERAMIDE HCL 2 MG CAP PO PRN (15:30)
[2016-12-13] MEDS ORDERED: IOHEXOL 350 MG/ML 10 ML VIAL (for RAD DIAG) IVCONTRAST ONE (15:47)
--- NOTE | 2016-12-13 16:28 | RADRPT ---
EXAM DATE/TIME: 12/13/2016 15:37 [facility] COMPARISON: CT ABDOMEN & PELVIS W CONTRAST, December 09, 2016, 8:33. INDICATIONS : Abdomen pain from abscess drainage, follow up. IV CONTRAST: 91 cc Omnipaque 350 (iohexol) IV ORAL CONTRAST: Prescribed oral contrast ingested. RADIATION DOSE: 8.32 CTDIvol (mGy) MEDICAL HISTORY : Abscess in abdomen. SURGICAL HISTORY : None. ENCOUNTER: Subsequent ACUITY: 1 day PAIN SCALE: 0/10 LOCATION: Bilateral upper quadrant TECHNIQUE: Volumetric scanning of the abdomen and pelvis was performed. Using automated exposure control and ad justment of the mA and/or kV according to patient size, radiation dose was kept as low as reasonably achievable to obtain optimal diagnostic quality images. DICOM format image data is available electro nically for review and comparison. FINDINGS: Interval percutaneous drainage of previously noted 10.8 cm mid abdominal abscess. The catheter is in good position. There is a small residual abscess cavity surrounding the catheter pigtail measuring ap proximately 1.8 x 4.7 x 3.5 cm. Interval development of additional abscess ease. Largest collection i s in the left pericolic gutter and is bilobed in shape measuring 3.2 x 2.5 x 9.6 cm and 1.3 x 4.3 x 1 .8 cm. Second nearly as large collection just cephalad to the bladder in the mid pelvis measuring 6.2 x 4.6 x 6.8 cm. Fluid collection measuring 4.5 x 1.6 x 1.7 cm in the mid lower abdomen. There is als o ill-defined organizing mesenteric fluid containing a small false focus of air in the left lower melissa drant. There is a slightly dilated loop of small bowel in the anterior left abdomen with surrounding inflammatory change that is likely secondarily inflamed. Several additional loops of nondistended flu id-filled small bowel are likely reactive as well. Remainder of the examination is unchanged. Redemonstration of hepatomegaly with hypodense lesions in the right lobe of the liver similar to previous exam. Redemonstration cholelithiasis. Kidneys demonst rate symmetrical enhancement without evidence of hydronephrosis. Abdominal aorta is patent and non-an eurysmal. Main portal vein is patent without evidence for portal venous gas. SMV and SMA are patent. The bladder is mildly distended. Fat containing right ankle hernia. CONCLUSION: 1. Well-positioned percutaneous drainage catheter with significant interval improvement of previously noted large 10.8 cm mid abdominal abscess. Residual small abscess cavity measuring 1.8 x 4.7 x 3.5 c m. 2. Interval development of multiple additional abdominal abscesses, as above. 3. Secondarily inflamed/reactive dilatation of several loops of small bowel particularly in the anter ior left lower quadrant. 4. Redemonstration of indeterminant but stable hepatic lesions. These do not have the characteristic appearance of hepatic absceses. Again, hepatic ultrasound or MRI liver mass protocol is recommended f or further characterization on outpatient basis. 5. Remainder of the exam is unchanged. Findings were personally discussed with Dr. Armenta at the time of this dictation. Julius Henley MD on December 13, 2016 at 15:50 Board Certified Radiologist. This report was verified electronically.
--- NOTE | 2016-12-13 16:57 | PD.CAR.PN ---
CVT Progress Note Subjective/Hospital Course: 12/10/16 Patient doing well at this time Abdomen soft with active bowel sounds and grayish yellow pus draining from the percutaneously placed pigtail catheter Will repeat CT scan of abdomen and pelvis or Saturday, but this time with oral contrast to better delineate the source of this abscess Its my opinion is probably arising either from appendix or Meckel's diverticulum the latter being most likely Antibiotic regimen reinforced with nurses today 12/11/16 Patient doing well at this time Abdomen is soft with active bowel sounds and pigtail catheter is draining purulent material We will order CT of abdomen and pelvis with oral contrast for in see how much of this is remaining and how to proceed further 12/12/16 Patient doing very well Abdomen soft with active bowel sounds and mid abdominal masses deflated and almost gone although there must be still some purulent material in it Pigtail catheter still draining some purulent material Patient having several bowel movements and last few days which is semisolid and GI function is fully reestablished CT abdomen and pelvis with by mouth and IV contrast tomorrow to assess for residual presence of this collection and then decide which way to go with therapy 12/13/16 Patient underwent today repeat CAT scan of the abdomen which reveals multiple intra-abdominal abscesses in the pelvis as well as interloop abscesses in multiple locations in the lower abdomen. This signified the failure of conservative therapy and patient will need exploratory laparotomy washout and likely colon resection for this seems to be the most likely origin of this Patient ate today will remain on antibiotics will be taken to the operating room for surgery tomorrow Abdomen remains soft with hypoactive bowel sounds and no rebound or guarding so these abscesses at this point are indolent Objective: Vital Signs Date Time Temp Pulse Resp B/P (MAP) Pulse Ox O2 Delivery O2 Flow Rate FiO2 12/13/16 16:36 98.8 85 18 210/99 (136) 96 12/13/16 11:54 98.2 80 18 197/97 (130) 97 12/13/16 08:26 98.0 86 18 198/97 (130) 97 12/13/16 04:00 98.1 94 18 195/104 (134) 95 12/13/16 00:00 98.8 90 18 194/99 (130) 96 12/12/16 23:30 86 12/12/16 20:00 99.3 85 18 162/87 (112) 96 162/93 (116) Result Diagram: 12/10/16 0635 12/09/16 0804 Mili Armenta MD Dec 13, 2016 16:57
[2016-12-14] VITALS: BP 174/98; PULSE 85; RESP 20; TEMP 98.4; O2SAT 94
[2016-12-14] MEDS: PIPERACIL-TAZO 3.375 GM PREMIX 50 ML IV SCH ×3 (02:32→17:48)
[2016-12-14] MEDS: SODIUM CHLOR 0.9% 1000 ML INJ 1,000 ML IV SCH (02:56)
[2016-12-14 04:00] VITALS: BP 166/85; PULSE 82; RESP 20; TEMP 98.8; O2SAT 97
[2016-12-14] MEDS: ENALAPRILAT 1.25 MG/ML VIAL IV PUSH PRN (05:48)
[2016-12-14 08:13] VITALS: BP 167/93; PULSE 84; RESP 16; TEMP 98.3; O2SAT 95
[2016-12-14 08:55] VITALS: PULSE 87
[2016-12-14] MEDS: DOCUSATE SODIUM 100 MG CAP PO SCH (09:00)
[2016-12-14] MEDS: SODIUM CHLORIDE 0.9% FLUSH 10 ML FLUSH IV FLUSH SCH (09:00)
[2016-12-14] MEDS: LISINOPRIL 10 MG TAB PO SCH (09:00)
[2016-12-14] MEDS: SODIUM CHLORIDE 0.9% 10 ML VIAL IRRIGATION SCH (09:00)
[2016-12-14] MEDS: FAMOTIDINE 20 MG TAB PO SCH (09:00)
[2016-12-14] MEDS: METOPROLOL SUCCINATE 25 MG EXTENDED RELEASE TAB PO SCH (09:00)
[2016-12-14] MEDS ORDERED: ACETAMINOPHEN 1000 MG/100 ML 100 ML IV ONE (09:47)
[2016-12-14] MEDS ORDERED: FAMOTIDINE 20 MG/2 ML VIAL ONE (09:48)
[2016-12-14] MEDS ORDERED: POVIDONE IODINE 5% (ANTISEPSIS KIT) 4 APPLICATIONS EACH NARE PRN (10:15)
[2016-12-14] MEDS ORDERED: INSULIN HUMAN REGULAR 1,000 UNITS/10 ML VIAL SQ PRN (10:15)
[2016-12-14] MEDS ORDERED: SODIUM CHLORID 0.9% 500 ML IV PRN (10:15)
[2016-12-14] MEDS ORDERED: METOPROLOL TARTRATE 25 MG TAB PO PRN (10:15)
[2016-12-14] MEDS ORDERED: LACTATED RINGER'S 1000 ML IV PRN (10:15)
[2016-12-14] MEDS ORDERED: CHLORHEXIDINE GLUCONATE 2 % 1 PACK (2 CLOTHS) TOPICAL PRN (10:15)
[2016-12-14] MEDS: VANCOMYCIN INJ 1,000 MG in SODIUM CHLOR 0.9% 250 ML INJ 250 ML IV SCH (11:00)
[2016-12-14] MEDS ORDERED: NEOSTIGMINE 3 MG/3 ML SYR IV ONE (12:00)
[2016-12-14] MEDS ORDERED: DEXAMETHASONE SOD PHOS 4 MG/ML VIAL IV ONE (12:00)
[2016-12-14] MEDS ORDERED: PHENYLEPH/NS 1000 MCG/10 ML SYR IV ONE (12:00)
[2016-12-14] MEDS ORDERED: ePHEDrine/NS 25 MG/5 ML SYR IV ONE (12:00)
[2016-12-14] MEDS ORDERED: MIDAZOLAM HCL 2 MG/2 ML VIAL IV ONE (12:00)
[2016-12-14] MEDS ORDERED: ONDANSETRON HCL 4 MG/2 ML VIAL IV ONE (12:00)
[2016-12-14] MEDS ORDERED: GLYCOPYRROLATE 1 MG/5 ML SYRINGE IV PUSH ONE (12:00)
[2016-12-14] MEDS ORDERED: *morphine SULFATE 8 MG/ML PERIprocedure ONLY ONE ×3 (12:55→13:16)
[2016-12-14] MEDS ORDERED: DO NOT ADM ANY ANTICOAGULANT DRUGS PRN (13:00)
[2016-12-14] MEDS ORDERED: NALOXONE HCL 0.4 MG/ML AMP IV PUSH PRN (14:15)
[2016-12-14] MEDS ORDERED: DIMETHICONE/OXYBENZONE/PADMIATE LIP BALM 4.25 GM TOPICAL ONE (15:04)
[2016-12-14] MEDS: MORPHINE SULFATE 30 MG/30 ML PCA IV SCH (15:18)
[2016-12-14] MEDS: FLUCONAZOLE 100 MG PREMIX BAG 50 ML IV SCH (16:48)
[2016-12-14 20:00] VITALS: BP 120/70; PULSE 116; RESP 30; TEMP 98.2; O2SAT 95
[2016-12-14 22:00] VITALS: PULSE 116
[2016-12-15] VITALS (14 sets, daily range): BP systolic 96–183; BP diastolic 68–95; PULSE 100–114; RESP 20–26; TEMP 97.6–98.7; O2SAT 93–97
[2016-12-15] MEDS: PIPERACIL-TAZO 3.375 GM PREMIX 50 ML IV SCH ×3 (01:40→18:38)
[2016-12-15] MEDS: PCA - TOTAL MG MORPHINE DELIVERED PER SHIFT SCH ×3 (06:00→22:19)
[2016-12-15] MEDS: SODIUM CHLORIDE 0.9% 10 ML VIAL IRRIGATION SCH (09:00)
--- NOTE | 2016-12-15 12:17 | PD.CAR.PN ---
CVT Progress Note Subjective/Hospital Course: 12/10/16 Patient doing well at this time Abdomen soft with active bowel sounds and grayish yellow pus draining from the percutaneously placed pigtail catheter Will repeat CT scan of abdomen and pelvis or Saturday, but this time with oral contrast to better delineate the source of this abscess Its my opinion is probably arising either from appendix or Meckel's diverticulum the latter being most likely Antibiotic regimen reinforced with nurses today 12/11/16 Patient doing well at this time Abdomen is soft with active bowel sounds and pigtail catheter is draining purulent material We will order CT of abdomen and pelvis with oral contrast for in see how much of this is remaining and how to proceed further 12/12/16 Patient doing very well Abdomen soft with active bowel sounds and mid abdominal masses deflated and almost gone although there must be still some purulent material in it Pigtail catheter still draining some purulent material Patient having several bowel movements and last few days which is semisolid and GI function is fully reestablished CT abdomen and pelvis with by mouth and IV contrast tomorrow to assess for residual presence of this collection and then decide which way to go with therapy 12/13/16 Patient underwent today repeat CAT scan of the abdomen which reveals multiple intra-abdominal abscesses in the pelvis as well as interloop abscesses in multiple locations in the lower abdomen. This signified the failure of conservative therapy and patient will need exploratory laparotomy washout and likely colon resection for this seems to be the most likely origin of this Patient ate today will remain on antibiotics will be taken to the operating room for surgery tomorrow Abdomen remains soft with hypoactive bowel sounds and no rebound or guarding so these abscesses at this point are indolent 12/15/16 Patient underwent yesterday successful exploratory laparotomy washout and right partial hemicolectomy for perforated cecum at the site of gangrenous appendicitis Postoperatively patient is doing well Abdomen soft active bowel sounds Incision is clean and dry NG tube has been adjusted Transfer to floor and continue nothing by mouth Decrease IV rate Objective: Vital Signs Date Time Temp Pulse Resp B/P (MAP) Pulse Ox O2 Delivery O2 Flow Rate FiO2 12/15/16 06:00 109 12/15/16 04:00 97.8 114 24 123/82 (96) 95 12/15/16 04:00 114 12/15/16 02:00 114 12/15/16 00:00 112 12/15/16 00:00 97.9 112 23 96/68 (77) 94 12/14/16 22:00 116 12/14/16 20:00 98.2 116 30 120/70 (87) 95 12/14/16 20:00 116 12/14/16 19:30 110 16 105/74 (84) 99 Nasal Cannula 2 12/14/16 19:00 106 16 108/76 (87) 99 Nasal Cannula 2 12/14/16 18:00 104 16 108/68 (81) 98 Nasal Cannula 2 12/14/16 17:00 96 16 153/85 (107) 100 Nasal Cannula 2 12/14/16 16:00 90 16 147/88 (107) 99 Nasal Cannula 2 12/14/16 16:00 16 12/14/16 15:18 16 12/14/16 15:00 86 16 143/92 (109) 100 Nasal Cannula 2 12/14/16 14:30 82 16 157/89 (111) 100 Nasal Cannula 2 12/14/16 14:00 80 16 151/86 (107) 100 Nasal Cannula 2 12/14/16 13:45 80 16 145/83 (103) 100 Nasal Cannula 2 12/14/16 13:30 80 16 136/77 (96) 100 Nasal Cannula 2 12/14/16 13:15 90 16 162/82 (108) 100 Nasal Cannula 2 12/14/16 13:00 86 16 174/87 (116) 99 Nasal Cannula 2 12/14/16 12:45 97.7 84 16 196/94 (128) 99 Nasal Cannula 2 Mili Armenta MD Dec 15, 2016 12:17
[2016-12-15] MEDS: ENALAPRILAT 1.25 MG/ML VIAL IV PUSH PRN ×2 (13:17→21:30)
[2016-12-15 14:26] LABS: HEMATOCRIT 35.1 % (39.0-51.0); MEAN CORPUSCULAR HEMOGLOBIN 27.7 PG (27.0-34.0); MEAN CORPUSCULAR HGB CONC 31.9 % (32.0-36.0); PLATELET COUNT 393 TH/MM3 (150-450); RED BLOOD COUNT 4.03 MIL/MM3 (4.50-5.90); RED CELL DISTRIBUTION WIDTH 14.5 % (11.6-17.2); REVIEW FLAG FINAL; WHITE BLOOD COUNT 21.3 TH/MM3 (4.0-11.0)
[2016-12-15 15:02] LABS: BICARBONATE 24.8 MEQ/L (21.0-32.0); POTASSIUM 3.4 MEQ/L (3.5-5.1)
[2016-12-15 15:45] LABS: CALCIUM-PROTEIN CORRECTED 7.8 MG/DL (8.5-10.1)
--- NOTE | 2016-12-15 16:08 | PD.ID.CON ---
History of Present Illness Service ID Consult Requested By Dr Armenta Reason for Consult intraabd abscess, perforated cecum Primary Care Physician No Primary Care Physician Diagnoses: History of Present Illness 51 yo male w/o pas t med history developped abdominal pain x 1 week and presented with fever, pain, leukocytosis [address] showed intraabd abscess and IR guided aspiration showed mixed anaerobs He was initially manage conservatelvely with broad spectrum abx, but failed it and repeat CT showed progression to multiple abscesses on12/14 he underwent exploratory laparotomy washout and right partial hemicolectomy for perforated cecum at the site of gangrenous appendicitis HIs culture now growing Blaine albicans Review of Systems Except as stated in HPI: all other systems reviewed are Neg Past Family Social History Allergies: Coded Allergies: No Known Allergies (Verified Allergy, Unknown, 12/09/16) Past Medical History none Past Surgical History none 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 social ETOH. No Illicit Drugs. Physical Exam Vital Signs Vital Signs Date Time Temp Pulse Resp B/P (MAP) Pulse Ox O2 Delivery O2 Flow Rate FiO2 12/15/16 12:00 98.7 102 23 151/90 (110) 97 12/15/16 12:00 102 12/15/16 10:00 106 12/15/16 08:00 110 12/15/16 08:00 97.6 110 20 163/95 (117) 93 12/15/16 06:00 109 12/15/16 04:00 97.8 114 24 123/82 (96) 95 12/15/16 04:00 114 12/15/16 02:00 114 12/15/16 00:00 112 12/15/16 00:00 97.9 112 23 96/68 (77) 94 12/14/16 22:00 116 12/14/16 20:00 98.2 116 30 120/70 (87) 95 12/14/16 20:00 116 12/14/16 19:30 110 16 105/74 (84) 99 Nasal Cannula 2 12/14/16 19:00 106 16 108/76 (87) 99 Nasal Cannula 2 12/14/16 18:00 104 16 108/68 (81) 98 Nasal Cannula 2 12/14/16 17:00 96 16 153/85 (107) 100 Nasal Cannula 2 Physical Exam CONSTITUTIONAL/GENERAL: This is an adequately nourished patient, in no apparent distress TUBES/LINES/DRAINS: SKIN: No jaundice, rashes, or lesions. . Skin temperature appropriate. Not diaphoretic. HEAD: Atraumatic. Normocephalic. EYES: Pupils equal and round and reactive. Extraocular motions intact. No scleral icterus. No injection or drainage. Fundi not examined. ENT: Hearing grossly normal. Nose without bleeding or purulent drainage. Throat without visible erythema, exudates, masses, or lesions. NG to suction NECK: Trachea midline. Supple, nontender. No palpable thyroid enlargement or nodularity. CARDIOVASCULAR: Regular rate and rhythm without murmurs, gallops, or rubs. No JVD. Peripheral pulses symmetric. RESPIRATORY/CHEST: Symmetric, unlabored respirations. Clear to auscultation. Breath sounds equal bilaterally. No wheezes, rales, or rhonchi. GASTROINTESTINAL: Abdomen with post op dressing, FREDA x [address] Bowel sounds hypoactive GENITOURINARY: Without palpable bladder distension. Steve catheter in place wth clear yellow urine MUSCULOSKELETAL: Extremities without clubbing, cyanosis, or edema. No joint tenderness or effusion noted. No calf tenderness. No mottling or clubbing. LYMPHATICS: No palpable cervical or supraclavicular adenopathy. NEUROLOGICAL: Awake and alert. Motor and sensory grossly within normal limits. Follows commands. Clear speech Moves all extremities. PSYCHIATRIC: No obvious anxiety/depression. no apparent hallucinations or other psychotic thought process. Laboratory Laboratory Tests Test 12/14/16 20:20 12/15/16 13:57 12/15/16 14:13 Nasal Screen MRSA (PCR) MRSA NOT DETECTED White Blood Count 21.3 Red Blood Count 4.03 Hemoglobin 11.2 Hematocrit 35.1 Mean Corpuscular Volume 87.0 Mean Corpuscular Hemoglobin 27.7 Mean Corpuscular Hemoglobin Concent 31.9 Red Cell Distribution Width 14.5 Platelet Count 393 Mean Platelet Volume 7.5 Blood Urea Nitrogen 16 Creatinine 1.14 Random Glucose 256 Total Protein 6.3 Calcium Level 7.4 Sodium Level 140 Potassium Level 3.4 Chloride Level 106 Carbon Dioxide Level 24.8 Anion Gap 9 Estimat Glomerular Filtration Rate 82 Protein Corrected Calcium 7.8 Date/Time Source Procedure Growth Status 12/09/16 09:20 Blood Peripheral Aerobic Blood Culture - Final NO GROWTH IN 5 DAYS Complete 12/09/16 09:20 Blood Peripheral Anaerobic Blood Culture - Final NO GROWTH IN 5 DAYS Complete 12/09/16 18:10 Fluid Other Gram Stain - Final Complete 12/09/16 18:10 Body Fluid Culture - Final Mixed Anaerobes Complete 12/14/16 11:03 Abscess Other Fungal Smear - Final NO FUNGAL ELEMENTS SEEN. Resulted 12/14/16 11:03 Abscess Other Fungal Culture Pending Resulted Result Diagram: 12/15/16 1357 12/15/16 1413 Imaging Last Impressions Abdomen/Pelvis CT 12/13/16 1000 Signed Impressions: Service Date/Time: November 15:37 - CONCLUSION: 1. Well-positioned percutaneous drainage catheter with significant interval improvement of previously noted large 10.8 cm mid abdominal abscess. Residual small abscess cavity measuring 1.8 x 4.7 x 3.5 cm. 2. Interval development of multiple additional abdominal abscesses, as above. 3. Secondarily inflamed/reactive dilatation of several loops of small bowel particularly in the anterior left lower quadrant. 4. Redemonstration of indeterminant but stable hepatic lesions. These do not have the characteristic appearance of hepatic absceses. Again, hepatic ultrasound or MRI liver mass protocol is recommended for further characterization on outpatient basis. 5. Remainder of the exam is unchanged. Findings were personally discussed with Dr. Armenta at the time of this dictation. Julius Henley MD Abdomen X-Ray 12/09/16 0746 Signed Impressions: Service Date/Time: Friday, December 09, 2016 07:54 - CONCLUSION: There is no free air or definite signs of small bowel obstruction. However, the small bowel gas pattern is not completely normal. Consider followup to ensure resolution. Behzad Gutierrez MD Abscess Drainage CT 12/09/16 0000 Signed Impressions: Service Date/Time: Friday, December 09, 2016 17:41 - CONCLUSION: Uncomplicated CT guided drainage. 10 cc of couch, purulent fluid was aspirated from the catheter and sent to laboratory for analysis Kirt Angeles MD Assessment and Plan Assessment and Plan Intraabdominal abscess 2/2 perforated appendicitis mixed anaerobs on presentation, after 6 days of BSA - blaine. albicans Rec's; cont zosyn and fluconazol - anticipate envetual transition to oral abx Rx Shyanne Navarrete MD Dec 15, 2016 16:08
[2016-12-15] MEDS: FLUCONAZOLE 100 MG PREMIX BAG 50 ML IV SCH (16:33)
[2016-12-15] MEDS ORDERED: METOPROLOL TARTRATE 5 MG/5 ML VIAL IV PUSH SCH (17:00)
[2016-12-15] MEDS: LISINOPRIL 10 MG TAB NG SCH (21:28)
[2016-12-15] MEDS ORDERED: LORazepam 2 MG/ML VIAL IV PUSH ONE (22:45)
[2016-12-15] MEDS: cloNIDine HCL 0.1 MG TAB PO PRN (22:50)
[2016-12-16] VITALS (8 sets, daily range): BP systolic 139–194; BP diastolic 86–117; PULSE 94–105; RESP 17–22; TEMP 96.2–98.7; O2SAT 92–98
[2016-12-16] MEDS: PIPERACIL-TAZO 3.375 GM PREMIX 50 ML IV SCH ×3 (01:40→17:20)
[2016-12-16] MEDS: MORPHINE SULFATE 30 MG/30 ML PCA IV SCH (03:01)
[2016-12-16] MEDS: PCA - TOTAL MG MORPHINE DELIVERED PER SHIFT SCH ×3 (05:13→22:00)
[2016-12-16] MEDS: LISINOPRIL 10 MG TAB NG SCH ×2 (07:39→21:15)
[2016-12-16] MEDS: SODIUM CHLORIDE 0.9% 10 ML VIAL IRRIGATION SCH (07:39)
--- NOTE | 2016-12-16 10:30 | PD.CAR.PN ---
CVT Progress Note Subjective/Hospital Course: 12/10/16 Patient doing well at this time Abdomen soft with active bowel sounds and grayish yellow pus draining from the percutaneously placed pigtail catheter Will repeat CT scan of abdomen and pelvis or Saturday, but this time with oral contrast to better delineate the source of this abscess Its my opinion is probably arising either from appendix or Meckel's diverticulum the latter being most likely Antibiotic regimen reinforced with nurses today 12/11/16 Patient doing well at this time Abdomen is soft with active bowel sounds and pigtail catheter is draining purulent material We will order CT of abdomen and pelvis with oral contrast for in see how much of this is remaining and how to proceed further 12/12/16 Patient doing very well Abdomen soft with active bowel sounds and mid abdominal masses deflated and almost gone although there must be still some purulent material in it Pigtail catheter still draining some purulent material Patient having several bowel movements and last few days which is semisolid and GI function is fully reestablished CT abdomen and pelvis with by mouth and IV contrast tomorrow to assess for residual presence of this collection and then decide which way to go with therapy 12/13/16 Patient underwent today repeat CAT scan of the abdomen which reveals multiple intra-abdominal abscesses in the pelvis as well as interloop abscesses in multiple locations in the lower abdomen. This signified the failure of conservative therapy and patient will need exploratory laparotomy washout and likely colon resection for this seems to be the most likely origin of this Patient ate today will remain on antibiotics will be taken to the operating room for surgery tomorrow Abdomen remains soft with hypoactive bowel sounds and no rebound or guarding so these abscesses at this point are indolent 12/15/16 Patient underwent yesterday successful exploratory laparotomy washout and right partial hemicolectomy for perforated cecum at the site of gangrenous appendicitis Postoperatively patient is doing well Abdomen soft active bowel sounds Incision is clean and dry NG tube has been adjusted Transfer to floor and continue nothing by mouth Decrease IV rate 12/16/16 Patient doing okay Since transfer to the floor did not receive any IV fluids because the orders were not transcribed NG tube is on my arrival almost out and in the posterior pharynx instead of stomach Patient has no SCDs which he should've had all along Hasn't been taken out of bed since arrival to the floor yesterday Incision is clean and dry Plan DC NG tube DC Steve Out of bed/encouraged deep breathing and ambulation for otherwise patient will develop atelectasis and pneumonia ID consult is appreciated Objective: Vital Signs Date Time Temp Pulse Resp B/P (MAP) Pulse Ox O2 Delivery O2 Flow Rate FiO2 12/16/16 08:00 96.7 99 18 164/89 (114) 94 12/16/16 05:13 20 12/16/16 04:44 96.7 103 20 140/93 (109) 96 12/16/16 03:01 18 12/16/16 01:50 Nasal Cannula 2.00 12/16/16 00:00 98.0 104 22 149/86 (107) 98 12/16/16 00:00 103 12/16/16 00:00 98.5 100 20 140/87 (104) 94 12/15/16 22:19 26 12/15/16 22:00 100 12/15/16 21:15 97 Nasal Cannula 2.00 12/15/16 20:00 Nasal Cannula 2.00 92 12/15/16 20:00 104 12/15/16 20:00 97.7 104 26 183/92 (122) 95 12/15/16 19:00 Room Air 95 12/15/16 18:00 100 12/15/16 16:00 97.9 102 24 163/93 (116) 97 12/15/16 16:00 108 12/15/16 14:00 22 12/15/16 14:00 102 12/15/16 12:00 98.7 102 23 151/90 (110) 97 12/15/16 12:00 102 Result Diagram: 12/15/16 1357 12/15/16 1413 Mili Armenta MD Dec 16, 2016 10:30
[2016-12-16] MEDS ORDERED: amLODIPine BESYLATE 5 MG TAB PO ONE (12:00)
[2016-12-16] MEDS ORDERED: GLUCAGON 1 MG/ML VIAL OTHER PRN (12:00)
[2016-12-16] MEDS ORDERED: DEXTROSE 50% IN WATER 50 ML VIAL(D50) IV PRN (12:00)
[2016-12-16] MEDS: SODIUM CHLOR 0.9% 1000 ML INJ 1,000 ML IV SCH ×2 (12:01→23:14)
[2016-12-16] MEDS: ENOXAPARIN SODIUM 40 MG/0.4 ML SYRINGE SQ SCH ×2 (12:01→23:14)
--- NOTE | 2016-12-16 12:03 | PD.CONS ---
[facility] Request[facility] By CLEMENTE ARMENTA MD Reason for Consult Medical management and help with high blood pressure Primary Care Physician No Primary Care Physician Diagnoses: (1) Intra-abdominal abscess (2) Sepsis History of Present Illness This 51-year-old male presents to the [place] emergency room with 1-week history of severe abdominal pain. The patient states he ate some sort of chicken a week ago, became violently ill, had abdominal pain, nausea and diarrhea. The diarrhea stopped, yet the pain is still severe and the patient finally presented to the emergency room. On workup he was found to have intra-abdominal interloop abscess and he is now being admitted for further care. We have been consult to help with medical management and high blood pressure Review of Systems Constitutional: DENIES: Diaphoretic episodes, Fatigue, Fever, Weight gain, Chills, Dizziness Endocrine: DENIES: Heat/cold intolerance, Polydipsia, Polyuria, Polyphagia Eyes: DENIES: Blurred vision, Diplopia, Eye inflammation, Eye pain Ears, nose, mouth, throat: DENIES: Tinnitus, Hearing loss, Vertigo, Nasal discharge Respiratory: DENIES: Apneas, Cough, Snoring, Wheezing, Hemoptysis Cardiovascular: DENIES: Chest pain, Palpitations, Syncope, Dyspnea on Exertion Gastrointestinal: COMPLAINS OF: Abdominal pain, Diarrhea, DENIES: Bloody stools , Constipation Genitourinary: DENIES: Sexual dysfunction, Urinary frequency Musculoskeletal: DENIES: Joint pain, Muscle aches, Stiffness Integumentary: DENIES: Abnormal pigmentation, Nail changes Hematologic/lymphatic: DENIES: Bruising, Lymphadenopathy Immunologic/allergic: DENIES: Eczema, Urticaria Neurologic: DENIES: Abnormal gait, Headache, Localized weakness Psychiatric: DENIES: Anxiety, Confusion, Mood changes, Depression Past Family Social History Allergies: Coded Allergies: No Known Allergies (Verified Allergy, Unknown, 12/09/16) Past Medical History Denies Past Surgical History Denies Reported Medications Current Medications Ondansetron HCl (Zofran Inj) 4 mg ONCE ONCE IVP Last administered on 08:11; Start 12/09/16 at 08:00; Stop 12/09/16 at 08:01; Status DC Sodium Chloride 1,000 ml @ 1,000 mls/hr Q1H IV Last administered on 12/09/16 08:10; Start 12/09/16 at 07:46; Stop 12/09/16 at 08:45; Status DC Sodium Chloride (NS Flush) 2 ml UNSCH PRN IV FLUSH FLUSH AFTER USING IV ACCESS Last administered on 12/09/16 10:37; Start 12/09/16 at 08:00; Stop 12/09/16 at 13:31; Status DC Ketorolac Tromethamine (Toradol Inj) 30 mg ONCE ONCE IVP Last administered on 12/09/16 08:13; Start 12/09/16 at 08:00; Stop 12/09/16 at 08:01; Status DC Vancomycin HCl 1000 mg/Sodium Chloride 250 ml @ 250 mls/hr ONCE ONCE IV Last administered on 12/09/16 10:38; Start 12/09/16 at 09:00; Stop 12/09/16 at 09:59 ; Status DC Piperacillin Sod/ Tazobactam Sod 100 ml @ 200 mls/hr ONCE ONCE IV Last administered on 12/09/16 09:31; Start 12/09/16 at 09:00; Stop 12/09/16 at 09:29 ; Status DC Sodium Chloride 1,000 ml @ 999 mls/hr BOLUS ONCE IV Last administered on 12/09 09:31; Start 12/09/16 at 09:00; Stop 12/09/16 at 10:00; Status DC Iohexol (Omnipaque 350 Inj) 80 ml STK-MED ONCE IV PUSH Last administered on 08:50; Start 12/09/16 at 08:50; Stop 12/09/16 at 08:51; Status DC Sodium Chloride 1,000 ml @ 100 mls/hr Q10H IV Last administered on 12/11/16 05:36; Start 12/09/16 at 12:56; Stop 12/14/16 at 14:05; Status DC Sodium Chloride (NS Flush) 2 ml UNSCH PRN IV FLUSH FLUSH AFTER USING IV ACCESS Last administered on 12/12/16 17:04; Start 12/09/16 at 13:00; Stop 12/14/16 at 14:05; Status DC Sodium Chloride (NS Flush) 2 ml BID IV FLUSH Last administered on 12/13/16 21: 03; Start 12/09/16 at 21:00; Stop 12/14/16 at 14:06; Status DC Ondansetron HCl (Zofran Inj) 4 mg Q6H PRN IV NAUSEA OR VOMITING; Start at 13:00; Stop 12/14/16 at 14:05; Status DC Famotidine (Pepcid) 20 mg BID PO Last administered on 12/13/16 21:03; Start at 21:00; Stop 12/14/16 at 14:05; Status DC Docusate Sodium (Colace) 100 mg BID PO Last administered on 12/12/16 21:04; Start 12/09/16 at 21:00; Stop 12/14/16 at 14:05; Status DC Vancomycin HCl 1000 mg/Sodium Chloride 250 ml @ 250 mls/hr Q12H IV Last administered on 12/13/16 23:17; Start 12/09/16 at 23:00; Stop 12/14/16 at 14:05 ; Status DC Miscellaneous Information (Post-op Orders (for Pharmacy)) STAT ONCE XX ; Start 12/09/16 at 13:00; Stop 12/09/16 at 13:34; Status DC Oxycodone/ Acetaminophen (Percocet 5-325 Mg) 1 tab Q4H PRN PO PAIN SCALE 3 TO 5 Last administered on 12/12/16 17:04; Start 12/09/16 at 13:00; Stop 12/14/16 at 14:05; Status DC Morphine Sulfate (Morphine Inj) 2 mg Q3H PRN IV PAIN 6-10 Last administered on 12/09/16 19:15; Start 12/09/16 at 13:00; Stop 12/14/16 at 14:05; Status DC Naloxone HCl (Narcan Inj) 0.4 mg UNSCH PRN IV SEE LABEL COMMENTS; Start at 13:00; Stop 12/14/16 at 14:05; Status DC Piperacillin Sod/ Tazobactam Sod 50 ml @ 100 mls/hr Q8H IV Last administered on 12/16/16 08:43; Start 12/09/16 at 18:00 Lidocaine HCl (Xylocaine 1% Inj) 20 ml STK-MED ONCE .ROUTE Last administered on 12/09/16 16:54; Start 12/09/16 at 16:54; Stop 12/09/16 at 16:55; Status DC Fentanyl Citrate (fentaNYL INJ) 100 mcg STK-MED ONCE .ROUTE Last administered on 12/09/16 17:00; Start 12/09/16 at 17:00; Stop 12/09/16 at 17:01; Status DC Midazolam HCl (Versed Inj) 2 mg STK-MED ONCE .ROUTE Last administered on 17:00; Start 12/09/16 at 17:00; Stop 12/09/16 at 17:01; Status DC Sodium Chloride (NS Inj) 10 ml DAILY IRRIGATION Last administered on 12/16/16 07:39; Start 12/10/16 at 09:00 Acetaminophen (Ofirmev 1000 Mg/ 100 ml Inj) 1,000 mg Q8H PRN IV TEMP > 101; Start 12/09/16 at 22:00 Lisinopril (Prinivil) 10 mg DAILY PO Last administered on 12/13/16 09:29; Start 12/11/16 at 19:34; Stop 12/14/16 at 14:05; Status DC Metoprolol Succinate (Toprol Xl) 25 mg DAILY PO Last administered on 12/13/16 09:29; Start 12/11/16 at 19:35; Stop 12/14/16 at 14:05; Status DC Enalaprilat (Vasotec Inj) 1.25 mg Q4H PRN IV PUSH SBP > OR = TO 160 Last administered on 12/15/16 21:30; Start 12/13/16 at 02:15 Diatrizoate Meglum/ Diatrizoate Sod ( Gastroview Liq) 18 ml ONCE ONCE PO Last administered on 12/13/16 11:17; Start 12/13/16 at 09:33; Stop 12/13/16 at 09:59; Status DC Loperamide HCl (Imodium) 2 mg Q6H PRN PO diarrhea Last administered on 16:07; Start 12/13/16 at 15:30; Stop 12/14/16 at 14:05; Status DC Iohexol (Omnipaque 350 Inj) 91 ml STK-MED ONCE IVCONTRAST Last administered on 9/14/17at 15:47; Start 12/13/16 at 15:47; Stop 12/13/16 at 15:48; Status DC Acetaminophen 100 ml @ As Directed STK-MED ONCE IV ; Start 12/14/16 at 09:47; Stop 12/14/16 at 09:48; Status DC Famotidine (Pepcid Inj) 20 mg STK-MED ONCE .ROUTE ; Start 12/14/16 at 09:48; Stop 12/14/16 at 09:49; Status DC Lactated Ringer's 1,000 ml @ 30 mls/hr Q24H PRN IV SEE LABEL COMMENTS; Start at 10:15; Stop 12/14/16 at 14:05; Status DC Sodium Chloride 500 ml @ 30 mls/hr [id number] PRN IV SEE LABEL COMMENTS; Start at 10:15; Stop 12/14/16 at 14:05; Status DC Povidone Iodine (Betadine 5% Antisepsis Kit) 1 applic DIE STAMPING PRESS OPERATOR PRN EACH NARE SEE LABEL COMMENTS; Start 12/14/16 at 10:15; Stop 12/17/16 at 10:14 Chlorhexidine Gluconate (Chlorhexidine 2% Cloth) 3 pack DIE STAMPING PRESS OPERATOR PRN TOPICAL SEE LABEL COMMENTS; Start 12/14/16 at 10:15; Stop 12/17/16 at 10:14 Insulin Human Regular (NovoLIN R INJ) See Protocol Table ... DIE STAMPING PRESS OPERATOR PRN SQ SEE PROTOCOL TABLE; Start 12/14/16 at 10:15; Stop 12/17/16 at 10:14 Metoprolol Tartrate (Lopressor) 25 mg DIE STAMPING PRESS OPERATOR PRN PO SEE LABEL COMMENTS; Start 12/14/16 at 10:15; Stop 12/17/16 at 10:14 Morphine Sulfate (*morphine INJ PERIprocedure ONLY) 8 mg STK-MED ONCE .ROUTE Last administered on 12/14/16 12:55; Start 12/14/16 at 12:55; Stop 12/14/16 at 12:56; Status DC Morphine Sulfate (*morphine INJ PERIprocedure ONLY) 8 mg STK-MED ONCE .ROUTE Last administered on 12/14/16 13:03; Start 12/14/16 at 13:03; Stop 12/14/16 at 13:04; Status DC Morphine Sulfate (*morphine INJ PERIprocedure ONLY) 8 mg STK-MED ONCE .ROUTE Last administered on 12/14/16 13:16; Start 12/14/16 at 13:16; Stop 12/14/16 at 13:17; Status DC Naloxone HCl (Narcan Inj) 0.4 mg UNSCH PRN IV PUSH RESPIRATORY RATE LESS THAN 10; Start 12/14/16 at 14:15 Morphine Sulfate (Morphine 1 Mg/ ml DRAFTING ENGINEER) 30 mg UNSCH IV Last administered on 03:01; Start 12/14/16 at 14:15 DRAFTING ENGINEER Dosage Infused (Pha) 1 Q8HR .XX Last administered on 12/15/16 22:19; Start 12/14/16 at 14:15 Fluconazole/ Sodium Chloride 50 ml @ 50 mls/hr Q24H IV Last administered on 16:33; Start 12/14/16 at 16:00 Miscellaneous Information ALL NURSING DEPARTME... UNSCH PRN .XX SEE LABEL COMMENTS; Start 12/14/16 at 13:00; Stop 12/15/16 at 12:59; Status DC Oxybenzone/ Padimate O/ Dimethicone (Blistex Lip Horicon) 4.25 applic STK-MED ONCE TOPICAL Last administered on 12/14/16 15:04; Start 12/14/16 at 15:04; Stop at 15:05; Status DC Metoprolol Tartrate (Lopressor Inj) 5 mg Q6H IV PUSH Last administered on 16:33; Start 12/15/16 at 17:00; Stop 12/15/16 at 20:24; Status DC Lisinopril (Prinivil) 10 mg Q12HR NG Last administered on 12/16/16 07:39; Start 12/15/16 at 21:00 Clonidine (Catapres) 0.1 mg Q6H PRN PO SBP>160, DBP>90 Last administered on 22:50; Start 12/15/16 at 22:45 Lorazepam (Ativan Inj) 0.5 mg ONCE ONCE IV PUSH Last administered on 22:50; Start 12/15/16 at 22:45; Stop 12/16/16 at 10:33; Status DC Sodium Chloride 1,000 ml @ 80 mls/hr [id number] IV ; Start 12/16/16 at 10:00 Enoxaparin Sodium (Lovenox Inj) 40 mg Q12H SQ ; Start 12/16/16 at 11:00 Reported Meds & Active Scripts Active No Active Prescriptions or Reported Medications Active Ordered Medications Current Medications Ondansetron HCl (Zofran Inj) 4 mg ONCE ONCE IVP Last administered on 08:11; Start 12/09/16 at 08:00; Stop 12/09/16 at 08:01; Status DC Sodium Chloride 1,000 ml @ 1,000 mls/hr Q1H IV Last administered on 12/09/16 08:10; Start 12/09/16 at 07:46; Stop 12/09/16 at 08:45; Status DC Sodium Chloride (NS Flush) 2 ml UNSCH PRN IV FLUSH FLUSH AFTER USING IV ACCESS Last administered on 12/09/16 10:37; Start 12/09/16 at 08:00; Stop 12/09/16 at 13:31; Status DC Ketorolac Tromethamine (Toradol Inj) 30 mg ONCE ONCE IVP Last administered on 12/09/16 08:13; Start 12/09/16 at 08:00; Stop 12/09/16 at 08:01; Status DC Vancomycin HCl 1000 mg/Sodium Chloride 250 ml @ 250 mls/hr ONCE ONCE IV Last administered on 12/09/16 10:38; Start 12/09/16 at 09:00; Stop 12/09/16 at 09:59 ; Status DC Piperacillin Sod/ Tazobactam Sod 100 ml @ 200 mls/hr ONCE ONCE IV Last administered on 12/09/16 09:31; Start 12/09/16 at 09:00; Stop 12/09/16 at 09:29 ; Status DC Sodium Chloride 1,000 ml @ 999 mls/hr BOLUS ONCE IV Last administered on 12/09 09:31; Start 12/09/16 at 09:00; Stop 12/09/16 at 10:00; Status DC Iohexol (Omnipaque 350 Inj) 80 ml STK-MED ONCE IV PUSH Last administered on 08:50; Start 12/09/16 at 08:50; Stop 12/09/16 at 08:51; Status DC Sodium Chloride 1,000 ml @ 100 mls/hr Q10H IV Last administered on 12/11/16 05:36; Start 12/09/16 at 12:56; Stop 12/14/16 at 14:05; Status DC Sodium Chloride (NS Flush) 2 ml UNSCH PRN IV FLUSH FLUSH AFTER USING IV ACCESS Last administered on 12/12/16 17:04; Start 12/09/16 at 13:00; Stop 12/14/16 at 14:05; Status DC Sodium Chloride (NS Flush) 2 ml BID IV FLUSH Last administered on 12/13/16 21: 03; Start 12/09/16 at 21:00; Stop 12/14/16 at 14:06; Status DC Ondansetron HCl (Zofran Inj) 4 mg Q6H PRN IV NAUSEA OR VOMITING; Start at 13:00; Stop 12/14/16 at 14:05; Status DC Famotidine (Pepcid) 20 mg BID PO Last administered on 12/13/16 21:03; Start at 21:00; Stop 12/14/16 at 14:05; Status DC Docusate Sodium (Colace) 100 mg BID PO Last administered on 12/12/16 21:04; Start 12/09/16 at 21:00; Stop 12/14/16 at 14:05; Status DC Vancomycin HCl 1000 mg/Sodium Chloride 250 ml @ 250 mls/hr Q12H IV Last administered on 12/13/16 23:17; Start 12/09/16 at 23:00; Stop 12/14/16 at 14:05 ; Status DC Miscellaneous Information (Post-op Orders (for Pharmacy)) STAT ONCE XX ; Start 12/09/16 at 13:00; Stop 12/09/16 at 13:34; Status DC Oxycodone/ Acetaminophen (Percocet 5-325 Mg) 1 tab Q4H PRN PO PAIN SCALE 3 TO 5 Last administered on 12/12/16 17:04; Start 12/09/16 at 13:00; Stop 12/14/16 at 14:05; Status DC Morphine Sulfate (Morphine Inj) 2 mg Q3H PRN IV PAIN 6-10 Last administered on 12/09/16 19:15; Start 12/09/16 at 13:00; Stop 12/14/16 at 14:05; Status DC Naloxone HCl (Narcan Inj) 0.4 mg UNSCH PRN IV SEE LABEL COMMENTS; Start at 13:00; Stop 12/14/16 at 14:05; Status DC Piperacillin Sod/ Tazobactam Sod 50 ml @ 100 mls/hr Q8H IV Last administered on 12/16/16 08:43; Start 12/09/16 at 18:00 Lidocaine HCl (Xylocaine 1% Inj) 20 ml STK-MED ONCE .ROUTE Last administered on 12/09/16 16:54; Start 12/09/16 at 16:54; Stop 12/09/16 at 16:55; Status DC Fentanyl Citrate (fentaNYL INJ) 100 mcg STK-MED ONCE .ROUTE Last administered on 12/09/16 17:00; Start 12/09/16 at 17:00; Stop 12/09/16 at 17:01; Status DC Midazolam HCl (Versed Inj) 2 mg STK-MED ONCE .ROUTE Last administered on 17:00; Start 12/09/16 at 17:00; Stop 12/09/16 at 17:01; Status DC Sodium Chloride (NS Inj) 10 ml DAILY IRRIGATION Last administered on 12/16/16 07:39; Start 12/10/16 at 09:00 Acetaminophen (Ofirmev 1000 Mg/ 100 ml Inj) 1,000 mg Q8H PRN IV TEMP > 101; Start 12/09/16 at 22:00 Lisinopril (Prinivil) 10 mg DAILY PO Last administered on 12/13/16 09:29; Start 12/11/16 at 19:34; Stop 12/14/16 at 14:05; Status DC Metoprolol Succinate (Toprol Xl) 25 mg DAILY PO Last administered on 12/13/16 09:29; Start 12/11/16 at 19:35; Stop 12/14/16 at 14:05; Status DC Enalaprilat (Vasotec Inj) 1.25 mg Q4H PRN IV PUSH SBP > OR = TO 160 Last administered on 12/15/16 21:30; Start 12/13/16 at 02:15 Diatrizoate Meglum/ Diatrizoate Sod ( Gastroronnell Licea) 18 ml ONCE ONCE PO Last administered on 12/13/16 11:17; Start 12/13/16 at 09:33; Stop 12/13/16 at 09:59; Status DC Loperamide HCl (Imodium) 2 mg Q6H PRN PO diarrhea Last administered on 16:07; Start 12/13/16 at 15:30; Stop 12/14/16 at 14:05; Status DC Iohexol (Omnipaque 350 Inj) 91 ml STK-MED ONCE IVCONTRAST Last administered on 12/13/16 15:47; Start 12/13/16 at 15:47; Stop 12/13/16 at 15:48; Status DC Acetaminophen 100 ml @ As Directed STK-MED ONCE IV ; Start 12/14/16 at 09:47; Stop 12/14/16 at 09:48; Status DC Famotidine (Pepcid Inj) 20 mg STK-MED ONCE .ROUTE ; Start 12/14/16 at 09:48; Stop 12/14/16 at 09:49; Status DC Lactated Ringer's 1,000 ml @ 30 mls/hr Q24H PRN IV SEE LABEL COMMENTS; Start at 10:15; Stop 12/14/16 at 14:05; Status DC Sodium Chloride 500 ml @ 30 mls/hr [id number] PRN IV SEE LABEL COMMENTS; Start at 10:15; Stop 12/14/16 at 14:05; Status DC Povidone Iodine (Betadine 5% Antisepsis Kit) 1 applic DIE STAMPING PRESS OPERATOR PRN EACH NARE SEE LABEL COMMENTS; Start 12/14/16 at 10:15; Stop 12/17/16 at 10:14 Chlorhexidine Gluconate (Chlorhexidine 2% Cloth) 3 pack DIE STAMPING PRESS OPERATOR PRN TOPICAL SEE LABEL COMMENTS; Start 12/14/16 at 10:15; Stop 12/17/16 at 10:14 Insulin Human Regular (NovoLIN R INJ) See Protocol Table ... DIE STAMPING PRESS OPERATOR PRN SQ SEE PROTOCOL TABLE; Start 12/14/16 at 10:15; Stop 12/17/16 at 10:14 Metoprolol Tartrate (Lopressor) 25 mg DIE STAMPING PRESS OPERATOR PRN PO SEE LABEL COMMENTS; Start 12/14/16 at 10:15; Stop 12/17/16 at 10:14 Morphine Sulfate (*morphine INJ PERIprocedure ONLY) 8 mg STK-MED ONCE .ROUTE Last administered on 12/14/16 12:55; Start 12/14/16 at 12:55; Stop 12/14/16 at 12:56; Status DC Morphine Sulfate (*morphine INJ PERIprocedure ONLY) 8 mg STK-MED ONCE .ROUTE Last administered on 12/14/16 13:03; Start 12/14/16 at 13:03; Stop 12/14/16 at 13:04; Status DC Morphine Sulfate (*morphine INJ PERIprocedure ONLY) 8 mg STK-MED ONCE .ROUTE Last administered on 12/14/16 13:16; Start 12/14/16 at 13:16; Stop 12/14/16 at 13:17; Status DC Naloxone HCl (Narcan Inj) 0.4 mg UNSCH PRN IV PUSH RESPIRATORY RATE LESS THAN 10; Start 12/14/16 at 14:15 Morphine Sulfate (Morphine 1 Mg/ ml DRAFTING ENGINEER) 30 mg UNSCH IV Last administered on 03:01; Start 12/14/16 at 14:15 DRAFTING ENGINEER Dosage Infused (Pha) 1 Q8HR .XX Last administered on 12/15/16 22:19; Start 12/14/16 at 14:15 Fluconazole/ Sodium Chloride 50 ml @ 50 mls/hr Q24H IV Last administered on 16:33; Start 12/14/16 at 16:00 Miscellaneous Information ALL NURSING DEPARTME... UNSCH PRN .XX SEE LABEL COMMENTS; Start 12/14/16 at 13:00; Stop 12/15/16 at 12:59; Status DC Oxybenzone/ Padimate O/ Dimethicone (Blistex Lip Horicon) 4.25 applic STK-MED ONCE TOPICAL Last administered on 12/14/16 15:04; Start 12/14/16 at 15:04; Stop at 15:05; Status DC Metoprolol Tartrate (Lopressor Inj) 5 mg Q6H IV PUSH Last administered on 16:33; Start 12/15/16 at 17:00; Stop 12/15/16 at 20:24; Status DC Lisinopril (Prinivil) 10 mg Q12HR NG Last administered on 12/16/16 07:39; Start 12/15/16 at 21:00 Clonidine (Catapres) 0.1 mg Q6H PRN PO SBP>160, DBP>90 Last administered on 22:50; Start 12/15/16 at 22:45 Lorazepam (Ativan Inj) 0.5 mg ONCE ONCE IV PUSH Last administered on 22:50; Start 12/15/16 at 22:45; Stop 12/16/16 at 10:33; Status DC Sodium Chloride 1,000 ml @ 80 mls/hr [id number] IV ; Start 12/16/16 at 10:00 Enoxaparin Sodium (Lovenox Inj) 40 mg Q12H SQ ; Start 12/16/16 at 11:00 Family History Diabetes and hypertension in his mother Social History Works as a cook Denies any tobacco or alcohol recently Physical Exam Vital Signs Vital Signs Date Time Temp Pulse Resp B/P (MAP) Pulse Ox O2 Delivery O2 Flow Rate FiO2 12/16/16 08:00 96.7 99 18 164/89 (114) 94 12/16/16 07:39 Nasal Cannula 2.00 12/16/16 05:13 20 12/16/16 04:44 96.7 103 20 140/93 (109) 96 12/16/16 03:01 18 12/16/16 01:50 Nasal Cannula 2.00 12/16/16 00:00 98.0 104 22 149/86 (107) 98 12/16/16 00:00 103 12/16/16 00:00 98.5 100 20 140/87 (104) 94 12/15/16 22:19 26 12/15/16 22:00 100 12/15/16 21:15 97 Nasal Cannula 2.00 12/15/16 20:00 Nasal Cannula 2.00 92 12/15/16 20:00 104 12/15/16 20:00 97.7 104 26 183/92 (122) 95 12/15/16 19:00 Room Air 95 12/15/16 18:00 100 12/15/16 16:00 97.9 102 24 163/93 (116) 97 12/15/16 16:00 108 12/15/16 14:00 22 12/15/16 14:00 102 12/15/16 12:00 98.7 102 23 151/90 (110) 97 12/15/16 12:00 102 Physical Exam GENERAL: This is a well-nourished, well-developed patient, in no apparent distress. SKIN: No rashes, ecchymoses or lesions. Cool and dry. HEAD: Atraumatic. Normocephalic. No temporal or scalp tenderness. EYES: Pupils equal round and reactive. Extraocular motions intact. No scleral icterus. No injection or drainage. ENT: Nose without bleeding, purulent drainage or septal hematoma. Throat without erythema, tonsillar hypertrophy or exudate. Uvula midline. Airway patent. NECK: Trachea midline. No JVD or lymphadenopathy. Supple, nontender, no meningeal signs. CARDIOVASCULAR: Regular rate and rhythm without murmurs, gallops, or rubs. S1 and S2 no S3 or S4 RESPIRATORY: Clear to auscultation. Breath sounds equal bilaterally. No wheezes , rales, or rhonchi. GASTROINTESTINAL: Abdomen soft, non-tender, nondistended. No hepato-splenomegaly , or palpable masses. No guarding. Has drain in place MUSCULOSKELETAL: Extremities without clubbing, cyanosis, or edema. No joint tenderness, effusion, or edema noted. No calf tenderness. Negative Homans sign bilaterally. NEUROLOGICAL: Awake and alert. Cranial nerves II through XII intact. Motor and sensory grossly within normal limits. Five out of 5 muscle strength in all muscle groups. Normal speech. Insight and judgment are good mood and behavior is appropriate Laboratory Laboratory Tests Test 12/15/16 13:57 12/15/16 14:13 White Blood Count 21.3 Red Blood Count 4.03 Hemoglobin 11.2 Hematocrit 35.1 Mean Corpuscular Volume 87.0 Mean Corpuscular Hemoglobin 27.7 Mean Corpuscular Hemoglobin Concent 31.9 Red Cell Distribution Width 14.5 Platelet Count 393 Mean Platelet Volume 7.5 Blood Urea Nitrogen 16 Creatinine 1.14 Random Glucose 256 Total Protein 6.3 Calcium Level 7.4 Sodium Level 140 Potassium Level 3.4 Chloride Level 106 Carbon Dioxide Level 24.8 Anion Gap 9 Estimat Glomerular Filtration Rate 82 Protein Corrected Calcium 7.8 Date/Time Source Procedure Growth Status 12/09/16 09:20 Blood Peripheral Aerobic Blood Culture - Final NO GROWTH IN 5 DAYS Complete 12/09/16 09:20 Blood Peripheral Anaerobic Blood Culture - Final NO GROWTH IN 5 DAYS Complete 12/09/16 18:10 Fluid Other Gram Stain - Final Complete 12/09/16 18:10 Body Fluid Culture - Final Mixed Anaerobes Complete 12/14/16 11:03 Abscess Other Fungal Smear - Final NO FUNGAL ELEMENTS SEEN. Resulted 12/14/16 11:03 Abscess Other Fungal Culture Pending Resulted Result Diagram: 12/15/16 1357 12/15/16 1413 Imaging Last Impressions Abdomen/Pelvis CT 12/13/16 1000 Signed Impressions: Service Date/Time: November 15:37 - CONCLUSION: 1. Well-positioned percutaneous drainage catheter with significant interval improvement of previously noted large 10.8 cm mid abdominal abscess. Residual small abscess cavity measuring 1.8 x 4.7 x 3.5 cm. 2. Interval development of multiple additional abdominal abscesses, as above. 3. Secondarily inflamed/reactive dilatation of several loops of small bowel particularly in the anterior left lower quadrant. 4. Redemonstration of indeterminant but stable hepatic lesions. These do not have the characteristic appearance of hepatic absceses. Again, hepatic ultrasound or MRI liver mass protocol is recommended for further characterization on outpatient basis. 5. Remainder of the exam is unchanged. Findings were personally discussed with Dr. Armenta at the time of this dictation. Julius Henley MD Abdomen X-Ray 12/09/16 0746 Signed Impressions: Service Date/Time: Friday, December 09, 2016 07:54 - CONCLUSION: There is no free air or definite signs of small bowel obstruction. However, the small bowel gas pattern is not completely normal. Consider followup to ensure resolution. Behzad Gutierrez MD Abscess Drainage CT 12/09/16 0000 Signed Impressions: Service Date/Time: Friday, December 09, 2016 17:41 - CONCLUSION: Uncomplicated CT guided drainage. 10 cc of couch, purulent fluid was aspirated from the catheter and sent to laboratory for analysis Kirt Angeles MD Assessment and Plan Problem List: (1) Intra-abdominal abscess ICD Code: K65.1 - Peritoneal abscess Status: Acute (2) Sepsis ICD Code: A41.9 - Sepsis, unspecified organism Status: Acute (3) Hypertension ICD Code: I10 - Essential (primary) hypertension (4) Hypokalemia ICD Code: E87.6 - Hypokalemia (5) Hyperglycemia ICD Code: R73.9 - Hyperglycemia, unspecified Assessment and Plan Abdominal abscess status post drainage by interventional radiology Remains on antibiotics per infectious disease and surgery Hypertension started on Catapres patch due to being nothing by mouth at the moment Hyperglycemia we'll check a hemoglobin A1c Hypokalemia Will replace A.m. labs check a CBC CMP TSH free T4 hemoglobin A1c magnesium and phosphorus A.m. labs Discussed with patient and RN Code Status Full code Discussed Condition With dISCUSSED WITH PATIENT AND rn Hai Mendez DO Dec 16, 2016 12:03
[2016-12-16] MEDS ORDERED: cloNIDine HCL 0.1 MG/24 HR PATCH T-DERMAL SCH (13:00)
[2016-12-16] MEDS: INSULIN ASPART SUPPLEMENTAL SCALE SQ SCH ×3 (13:07→21:16)
[2016-12-16] MEDS: cloNIDine HCL 0.1 MG TAB PO PRN (13:21)
[2016-12-16] MEDS ORDERED: POTASSIUM PHOSPHATE INJ 15 MMOL in SODIUM CHLORIDE 0.9% INJ 150 ML IV ONE (14:00)
[2016-12-16] MEDS: FLUCONAZOLE 100 MG PREMIX BAG 50 ML IV SCH (15:39)
[2016-12-16] MEDS: ENALAPRILAT 1.25 MG/ML VIAL IV PUSH PRN (17:20)
[2016-12-17] VITALS: BP 169/97; PULSE 89; RESP 18; TEMP 98.6; O2SAT 92
[2016-12-17] MEDS: PIPERACIL-TAZO 3.375 GM PREMIX 50 ML IV SCH ×3 (01:14→20:47)
[2016-12-17 04:54] VITALS: PULSE 91; RESP 18; TEMP 99; O2SAT 95
[2016-12-17] MEDS: cloNIDine HCL 0.1 MG TAB PO PRN (05:53)
[2016-12-17] MEDS: PCA - TOTAL MG MORPHINE DELIVERED PER SHIFT SCH (05:56)
[2016-12-17 06:14] LABS: AUTOMATED NEUTROPHIL # 14.4 TH/MM3 (1.8-7.7); BASOPHIL # 0.1 TH/MM3 (0-0.2); BASOPHIL % 0.7 % (0.0-2.0); EOSINOPHIL # 0.2 TH/MM3 (0-0.4); EOSINOPHIL % 1.1 % (0.0-4.0); HEMATOCRIT 27.5 % (39.0-51.0); HEMO FLAGS DIFF FINAL; LYMPH % 14.8 % (9.0-44.0); LYMPHOCYTE # 2.7 TH/MM3 (1.0-4.8); MEAN CELL VOLUME 87.5 FL (80.0-100.0); MEAN CORPUSCULAR HEMOGLOBIN 28.3 PG (27.0-34.0); MEAN CORPUSCULAR HGB CONC 32.3 % (32.0-36.0); MONO % 5.5 % (0.0-8.0); NEUT % 77.9 % (16.0-70.0); PLATELET COUNT 382 TH/MM3 (150-450); RED BLOOD COUNT 3.14 MIL/MM3 (4.50-5.90); RED CELL DISTRIBUTION WIDTH 14.3 % (11.6-17.2); WHITE BLOOD COUNT 18.5 TH/MM3 (4.0-11.0)
[2016-12-17 06:37] LABS: ALKALINE PHOSPHATASE 98 U/L (45-117); ALT (GPT) 11 U/L (12-78); ANION GAP 9 MEQ/L (5-15); AST (GOT) 17 U/L (15-37); BICARBONATE 27.8 MEQ/L (21.0-32.0); BLOOD UREA NITROGEN 10 MG/DL (7-18); CHLORIDE 106 MEQ/L (98-107); FREE T4 1.63 NG/DL (0.76-1.46); GLOMERULAR FILTRATION RATE 115 ML/MIN (>89); MAGNESIUM 1.7 MG/DL (1.5-2.5); SODIUM (NA) 143 MEQ/L (136-145); TOTAL BILIRUBIN ADULT 0.4 MG/DL (0.2-1.0)
[2016-12-17 06:46] LABS: POTASSIUM 2.9 MEQ/L (3.5-5.1)
[2016-12-17 08:00] VITALS: BP 155/95; PULSE 92; RESP 18; TEMP 98.6; O2SAT 97
[2016-12-17] MEDS: INSULIN ASPART SUPPLEMENTAL SCALE SQ SCH ×4 (08:00→22:08)
[2016-12-17] MEDS ORDERED: POTASSIUM CHLORIDE 10 MEQ CONTROLLED RELEASE TAB PO ONE ×2 (08:00→10:00)
[2016-12-17] MEDS ORDERED: amLODIPine BESYLATE 5 MG TAB PO SCH (09:00)
[2016-12-17] MEDS ORDERED: SODIUM PHOSPHATE INJ 30 MMOL in SODIUM CHLOR 0.9% 250 ML INJ 250 ML IV ONE (09:00)
[2016-12-17] MEDS: SODIUM CHLORIDE 0.9% 10 ML VIAL IRRIGATION SCH (09:00)
--- NOTE | 2016-12-17 09:18 | MP ---
cc: AMISHA AYALA MD DATE OF SURGERY: 12/14/2016 PREOPERATIVE DIAGNOSIS Interloop abdominal abscesses status post percutaneous drainage. POSTOPERATIVE DIAGNOSIS Interloop abdominal abscesses status post percutaneous drainage. Perforated appendicitis with necrosis of medial portion of the cecum, spillage of the stool. OPERATIVE PROCEDURE Exploratory laparotomy, evacuation intra-abdominal abscesses, lysis of adhesions and right hemicolectomy with primary anastomosis. SURGEON Dr. Ayala. ANESTHESIA General. ESTIMATED BLOOD LOSS 200 ccs. PROCEDURE The patient was prepped and draped in sterile fashion. Midabdominal incision was made and the abdomen entered. Upon the entry of the abdomen matted small bowel loops are encountered against the abdominal wall. Bookwalter retractors are placed. Very carefully the small bowel was run. Proximal small bowel appears to be fine and then as we go down to the ileum it appears to be matted in the pelvis. At this point it is very gradually mobilized and it appears to be walling off an abscess in the middle of the abdomen which was noted before on a CAT scan. There is about 100 ccs of purulent material in here, at this point is cultured. Appears to be yellowish foul-smelling, this is cleaned out, washed out with copious amounts of saline. The small bowel was now continuously followed down into the pelvis. There are three or four more small abscesses in the area and then there is cecum. Cecum is now observed. The appendix is gone. There is inflammatory reaction in the medial portion of the cecum toward the pelvis and there is an opening in the cecum measuring about an inch in length where the cecum appears to be torn, necrotic and this was obviously where the wide based appendix was previously. There is a lot of, of course inflammatory reaction around this. On the left side sigmoid colon is inflamed but it is inflamed only because the reason it was walling off the deep abscesses. The pelvis is now completely explored. No other abscesses were found. Small bowel is run now from ligament of Treitz to ileocecal valve and again some inflamed area of small bowel are noted but there are really no perforation, no Meckel's diverticulum, anything of sorts. Large bowel was run as previously noted the cecum has a perforation and the pelvic aspect of it which is the site of previous base of the appendix and this was inflamed going up the proximal ascending colon is inflamed and then distal ascending colon appears to be okay as we go toward the hepatic flexure. Transverse colon is fine and so is the descending colon and the sigmoid is again inflamed being part of this inflammatory process. Stomach is checked, it is basically normal and NG tube in place, liver and spleen appear to be normal. All small abscess cavities are now freed up. It should be noted that the pigtail catheter was in perfect position right in the middle of the large abscess, however, amount of purulent material inflammatory response was too much for just drainage of this sorts. The pigtail is now removed. Decision is now made to remove the cecum and proximal ascending colon. ___ pulled medially and white line of Toldt is incised with cautery with a blunt and sharp dissection the cecum is freed from the base, carefully, the right angle tight adhesions were released and mesenteric attachments were released carefully preserving the ureter. This is now carried toward the hepatic flexure which is now freed up. The duodenum is carefully preserved and pushed down. This allows for good mobilization of the right colon. Point of transection of the right colon is chosen somewhere half-way and here a KAITLYN stapler was fired across, point of transection of the small bowel was chosen just before the ileocecal valve and here a KAITLYN stapler was fired across mesoileum, mesocolon is now clamped with Shirin clamps, divided and ligated with 0 Vicryl stick ties and 2-0 silk ties and then specimen was removed. Bowel is now laid [id number] and stapled [id number]. Intracolic anastomosis was created and then remaining opening closed with TA 60. Additional layer of 3-0 silk pop-off Lambert seromuscular stitches was placed on top and then the crotch of the anastomosis reinforced. Mesentery is closed with interrupted 3-0 silk [id number]. Once this was done small and large bowel were run one more time. No other abnormalities are noted except above-noted inflammatory changes. The abdomen is now irrigated with about 6 liters of saline until return is completely clear. Two FREDA drains were placed, one deep in the pelvis, the other one in the right pericolic gutter. The abdomen is now closed in layers with #1 PDS loop and herson. Instrument, sponge count were correct x2. The patient tolerated the procedure well. Henribodaamy MARTIN/ALBERTAL /2:12 PM /8:48 AM
[2016-12-17] MEDS: LISINOPRIL 10 MG TAB NG SCH (09:41)
[2016-12-17] MEDS: MAGNESIUM SULFATE 1 GM PREMIX 100 ML IV SCH ×2 (10:45→12:00)
--- NOTE | 2016-12-17 11:07 | PD.CAR.PN ---
CVT Progress Note Subjective/Hospital Course: 12/10/16 Patient doing well at this time Abdomen soft with active bowel sounds and grayish yellow pus draining from the percutaneously placed pigtail catheter Will repeat CT scan of abdomen and pelvis or Saturday, but this time with oral contrast to better delineate the source of this abscess Its my opinion is probably arising either from appendix or Meckel's diverticulum the latter being most likely Antibiotic regimen reinforced with nurses today 12/11/16 Patient doing well at this time Abdomen is soft with active bowel sounds and pigtail catheter is draining purulent material We will order CT of abdomen and pelvis with oral contrast for in see how much of this is remaining and how to proceed further 12/12/16 Patient doing very well Abdomen soft with active bowel sounds and mid abdominal masses deflated and almost gone although there must be still some purulent material in it Pigtail catheter still draining some purulent material Patient having several bowel movements and last few days which is semisolid and GI function is fully reestablished CT abdomen and pelvis with by mouth and IV contrast tomorrow to assess for residual presence of this collection and then decide which way to go with therapy 12/13/16 Patient underwent today repeat CAT scan of the abdomen which reveals multiple intra-abdominal abscesses in the pelvis as well as interloop abscesses in multiple locations in the lower abdomen. This signified the failure of conservative therapy and patient will need exploratory laparotomy washout and likely colon resection for this seems to be the most likely origin of this Patient ate today will remain on antibiotics will be taken to the operating room for surgery tomorrow Abdomen remains soft with hypoactive bowel sounds and no rebound or guarding so these abscesses at this point are indolent 12/15/16 Patient underwent yesterday successful exploratory laparotomy washout and right partial hemicolectomy for perforated cecum at the site of gangrenous appendicitis Postoperatively patient is doing well Abdomen soft active bowel sounds Incision is clean and dry NG tube has been adjusted Transfer to floor and continue nothing by mouth Decrease IV rate 12/16/16 Patient doing okay Since transfer to the floor did not receive any IV fluids because the orders were not transcribed NG tube is on my arrival almost out and in the posterior pharynx instead of stomach Patient has no SCDs which he should've had all along Hasn't been taken out of bed since arrival to the floor yesterday Incision is clean and dry Plan DC NG tube DC Steve Out of bed/encouraged deep breathing and ambulation for otherwise patient will develop atelectasis and pneumonia ID consult is appreciated 12/17/16 Patient doing very well Incision clean and dry and abdomen soft with active bowel sounds, mildly tender at the incision but no rebound or guarding Patient passing gas and had 2 bowel movements today Will advance to clear liquids changed to by mouth pain medication and discontinue TILE SPRAYER pump Patient needs to actively ambulate Remove pelvic FREDA Objective: Vital Signs Date Time Temp Pulse Resp B/P (MAP) Pulse Ox O2 Delivery O2 Flow Rate FiO2 12/17/16 08:00 98.6 92 18 155/95 (115) 97 12/17/16 05:56 20 12/17/16 04:54 Nasal Cannula 2.00 12/17/16 04:54 99.0 91 18 95 12/17/16 00:00 98.6 89 18 169/97 (121) 92 12/16/16 22:00 20 12/16/16 21:54 Nasal Cannula 2.00 92 12/16/16 19:45 98.7 94 20 169/95 (119) 97 12/16/16 18:00 101 162/90 (114) 12/16/16 16:00 96.8 102 18 180/97 (124) 93 12/16/16 14:27 139/86 (103) 12/16/16 12:00 96.2 105 17 177/101 (126) 92 194/111 (138) 191/117 (141) Labs: Laboratory Tests Test 12/17/16 04:20 White Blood Count 18.5 TH/MM3 (4.0-11.0) Red Blood Count 3.14 MIL/MM3 (4.50-5.90) Hemoglobin 8.9 GM/DL (13.0-17.0) Hematocrit 27.5 % (39.0-51.0) Mean Corpuscular Volume 87.5 FL (80.0-100.0) Mean Corpuscular Hemoglobin 28.3 PG (27.0-34.0) Mean Corpuscular Hemoglobin Concent 32.3 % (32.0-36.0) Red Cell Distribution Width 14.3 % (11.6-17.2) Platelet Count 382 TH/MM3 (150-450) Mean Platelet Volume 8.2 FL (7.0-11.0) Neutrophils (%) (Auto) 77.9 % (16.0-70.0) Lymphocytes (%) (Auto) 14.8 % (9.0-44.0) Monocytes (%) (Auto) 5.5 % (0.0-8.0) Eosinophils (%) (Auto) 1.1 % (0.0-4.0) Basophils (%) (Auto) 0.7 % (0.0-2.0) Neutrophils # (Auto) 14.4 TH/MM3 (1.8-7.7) Lymphocytes # (Auto) 2.7 TH/MM3 (1.0-4.8) Monocytes # (Auto) 1.0 TH/MM3 (0-0.9) Eosinophils # (Auto) 0.2 TH/MM3 (0-0.4) Basophils # (Auto) 0.1 TH/MM3 (0-0.2) CBC Comment DIFF FINAL Differential Comment Blood Urea Nitrogen 10 MG/DL (7-18) Creatinine 0.85 MG/DL (0.60-1.30) Random Glucose 142 MG/DL (74-106) Total Protein 6.8 GM/DL (6.4-8.2) Albumin 1.4 GM/DL (3.4-5.0) Calcium Level 7.7 MG/DL (8.5-10.1) Phosphorus Level 1.8 MG/DL (2.5-4.9) Magnesium Level 1.7 MG/DL (1.5-2.5) Alkaline Phosphatase 98 U/L (45-117) Aspartate Amino Transf (AST/SGOT) 17 U/L (15-37) Alanine Aminotransferase (ALT/SGPT) 11 U/L (12-78) Total Bilirubin 0.4 MG/DL (0.2-1.0) Sodium Level 143 MEQ/L (136-145) Potassium Level 2.9 MEQ/L (3.5-5.1) Chloride Level 106 MEQ/L (98-107) Carbon Dioxide Level 27.8 MEQ/L (21.0-32.0) Anion Gap 9 MEQ/L (5-15) Estimat Glomerular Filtration Rate 115 ML/MIN (>89) Free Thyroxine 1.63 NG/DL (0.76-1.46) Thyroid Stimulating Hormone 3rd Gen 2.250 uIU/ML (0.358-3.740) Result Diagram: 12/17/16 0420 12/17/16 0420 Mili Armenta MD Dec 17, 2016 11:07
[2016-12-17] MEDS ORDERED: oxyCODONE/ACETAMINOPHEN 5 MG/325 MG TAB PO PRN (11:15)
[2016-12-17] MEDS ORDERED: FUROSEMIDE 40 MG/4 ML VIAL IV PUSH ONE (11:15)
[2016-12-17] MEDS ORDERED: MORPHINE SULFATE 4 MG/ML INJ IV PUSH PRN (11:15)
[2016-12-17 12:00] VITALS: BP 173/86; PULSE 93; RESP 16; TEMP 98.8; O2SAT 92
[2016-12-17] MEDS: ENOXAPARIN SODIUM 40 MG/0.4 ML SYRINGE SQ SCH ×2 (12:05→22:08)
--- NOTE | 2016-12-17 13:09 | HHI.PR ---
Subjective Remarks This 51-year-old male presents to the [facility] emergency room with 1-week history of severe abdominal pain. The patient states he ate some sort of chicken a week ago, became violently ill, had abdominal pain, nausea and diarrhea. The diarrhea stopped, yet the pain is still severe and the patient finally presented to the emergency room. On workup he was found to have intra-abdominal interloop abscess and he is now being admitted for further care. We have been consult to help with medical management and high blood pressure 12-17 SUSPECT HE IS DIABETIC AND HYPERTENSIVE HAS HYPOKALEMIA WILL REPLACE WILL NEED DM EDUCATION PT DOES NOT BELIEVE AND LISTEN TO WHAT I AM SAYING SUSPECT WILL NOT BE VERY COMPLIANT WITH MEDICATION Objective Vitals Vital Signs Date Time Temp Pulse Resp B/P (MAP) Pulse Ox O2 Delivery O2 Flow Rate FiO2 12/17/16 08:00 98.6 92 18 155/95 (115) 97 12/17/16 05:56 20 12/17/16 04:54 Nasal Cannula 2.00 12/17/16 04:54 99.0 91 18 95 12/17/16 00:00 98.6 89 18 169/97 (121) 92 12/16/16 22:00 20 12/16/16 21:54 Nasal Cannula 2.00 92 12/16/16 19:45 98.7 94 20 169/95 (119) 97 12/16/16 18:00 101 162/90 (114) 12/16/16 16:00 96.8 102 18 180/97 (124) 93 12/16/16 14:27 139/86 (103) I/O 12/16/16 12/16/16 12/16/16 12/17/16 12/17/16 12/17/16 07:00 15:00 23:00 07:00 15:00 23:00 Intake Total 875 ml 1050 ml 50 ml Output Total 850 ml 425 ml 410 ml 225 ml Balance -850 ml -425 ml 465 ml 825 ml 50 ml Intake Oral 0 ml IV Total 875 ml 1050 ml 50 ml Output Urine Total 850 ml 425 ml 375 ml 200 ml Drainage Total 35 ml 25 ml # Voids 2 # Bowel Movements 0 Result Diagram: 12/17/16 0420 12/17/16 0420 Other Results Laboratory Tests Test 12/14/16 20:20 12/15/16 13:57 12/15/16 14:13 12/17/16 04:20 Nasal Screen MRSA (PCR) MRSA NOT DETECTED White Blood Count 21.3 TH/MM3 18.5 TH/MM3 Red Blood Count 4.03 MIL/MM3 3.14 MIL/MM3 Hemoglobin 11.2 GM/DL 8.9 GM/DL Hematocrit 35.1 % 27.5 % Mean Corpuscular Volume 87.0 FL 87.5 FL Mean Corpuscular Hemoglobin 27.7 PG 28.3 PG Mean Corpuscular Hemoglobin Concent 31.9 % 32.3 % Red Cell Distribution Width 14.5 % 14.3 % Platelet Count 393 TH/MM3 382 TH/MM3 Mean Platelet Volume 7.5 FL 8.2 FL Blood Urea Nitrogen 16 MG/DL 10 MG/DL Creatinine 1.14 MG/DL 0.85 MG/DL Random Glucose 256 MG/DL 142 MG/DL Total Protein 6.3 GM/DL 6.8 GM/DL Calcium Level 7.4 MG/DL 7.7 MG/DL Sodium Level 140 MEQ/L 143 MEQ/L Potassium Level 3.4 MEQ/L 2.9 MEQ/L Chloride Level 106 MEQ/L 106 MEQ/L Carbon Dioxide Level 24.8 MEQ/L 27.8 MEQ/L Anion Gap 9 MEQ/L 9 MEQ/L Estimat Glomerular Filtration Rate 82 ML/MIN 115 ML/MIN Protein Corrected Calcium 7.8 MG/DL Neutrophils (%) (Auto) 77.9 % Lymphocytes (%) (Auto) 14.8 % Monocytes (%) (Auto) 5.5 % Eosinophils (%) (Auto) 1.1 % Basophils (%) (Auto) 0.7 % Neutrophils # (Auto) 14.4 TH/MM3 Lymphocytes # (Auto) 2.7 TH/MM3 Monocytes # (Auto) 1.0 TH/MM3 Eosinophils # (Auto) 0.2 TH/MM3 Basophils # (Auto) 0.1 TH/MM3 CBC Comment DIFF FINAL Differential Comment Albumin 1.4 GM/DL Phosphorus Level 1.8 MG/DL Magnesium Level 1.7 MG/DL Alkaline Phosphatase 98 U/L Aspartate Amino Transf (AST/SGOT) 17 U/L Alanine Aminotransferase (ALT/SGPT) 11 U/L Total Bilirubin 0.4 MG/DL Free Thyroxine 1.63 NG/DL Thyroid Stimulating Hormone 3rd Gen 2.250 uIU/ML Imaging Last Impressions Abdomen/Pelvis CT 12/13/16 1000 Signed Impressions: Service Date/Time: November 15:37 - CONCLUSION: 1. Well-positioned percutaneous drainage catheter with significant interval improvement of previously noted large 10.8 cm mid abdominal abscess. Residual small abscess cavity measuring 1.8 x 4.7 x 3.5 cm. 2. Interval development of multiple additional abdominal abscesses, as above. 3. Secondarily inflamed/reactive dilatation of several loops of small bowel particularly in the anterior left lower quadrant. 4. Redemonstration of indeterminant but stable hepatic lesions. These do not have the characteristic appearance of hepatic absceses. Again, hepatic ultrasound or MRI liver mass protocol is recommended for further characterization on outpatient basis. 5. Remainder of the exam is unchanged. Findings were personally discussed with Dr. Armenta at the time of this dictation. Julius Henley MD Abdomen X-Ray 12/09/16 0746 Signed Impressions: Service Date/Time: Friday, December 09, 2016 07:54 - CONCLUSION: There is no free air or definite signs of small bowel obstruction. However, the small bowel gas pattern is not completely normal. Consider followup to ensure resolution. Behzad Gutierrez MD Abscess Drainage CT 12/09/16 0000 Signed Impressions: Service Date/Time: Friday, December 09, 2016 17:41 - CONCLUSION: Uncomplicated CT guided drainage. 10 cc of couch, purulent fluid was aspirated from the catheter and sent to laboratory for analysis Kirt Angeles MD Objective Remarks GENERAL: Awake alert and oriented talkative not so cooperative not happy with his new diagnoses SKIN: Warm and dry. HEAD: Atraumatic. Normocephalic. EYES: Pupils equal and round. No scleral icterus. No injection or drainage. Extraocular muscles intact ENT: No nasal bleeding or discharge. Mucous membranes pink and moist. Tongue is midline NECK: Trachea midline. No JVD. Neck is supple CARDIOVASCULAR: Regular rate and rhythm. S1-S2 no S3 or S4 no heave or thrill or rub RESPIRATORY: No accessory muscle use. Clear to auscultation. Breath sounds equal bilaterally. GASTROINTESTINAL: Abdomen soft, non-tender, nondistended. Hepatic and splenic margins not palpable. Some diffuse tenderness MUSCULOSKELETAL: Extremities without clubbing, cyanosis, or edema. No obvious deformities. NEUROLOGICAL: Awake and alert. No obvious cranial nerve deficits. Motor grossly within normal limits. Five out of 5 muscle strength in the arms and legs. Normal speech. PSYCHIATRIC: INAppropriate mood and affect; insight and judgment ABnormal. Procedures AMISHA ARMENTA MD DATE OF SURGERY: 12/14/2016 PREOPERATIVE DIAGNOSIS Interloop abdominal abscesses status post percutaneous drainage. POSTOPERATIVE DIAGNOSIS Interloop abdominal abscesses status post percutaneous drainage. Perforated appendicitis with necrosis of medial portion of the cecum, spillage of the stool. OPERATIVE PROCEDURE Exploratory laparotomy, evacuation intra-abdominal abscesses, lysis of adhesions and right hemicolectomy with primary anastomosis. Medications and IVs Current Medications Ondansetron HCl (Zofran Inj) 4 mg ONCE ONCE IVP Last administered on 08:11; Start 12/09/16 at 08:00; Stop 12/09/16 at 08:01; Status DC Sodium Chloride 1,000 ml @ 1,000 mls/hr Q1H IV Last administered on 12/09/16 08:10; Start 12/09/16 at 07:46; Stop 12/09/16 at 08:45; Status DC Sodium Chloride (NS Flush) 2 ml UNSCH PRN IV FLUSH FLUSH AFTER USING IV ACCESS Last administered on 12/09/16 10:37; Start 12/09/16 at 08:00; Stop 12/09/16 at 13:31; Status DC Ketorolac Tromethamine (Toradol Inj) 30 mg ONCE ONCE IVP Last administered on 12/09/16 08:13; Start 12/09/16 at 08:00; Stop 12/09/16 at 08:01; Status DC Vancomycin HCl 1000 mg/Sodium Chloride 250 ml @ 250 mls/hr ONCE ONCE IV Last administered on 12/09/16 10:38; Start 12/09/16 at 09:00; Stop 12/09/16 at 09:59 ; Status DC Piperacillin Sod/ Tazobactam Sod 100 ml @ 200 mls/hr ONCE ONCE IV Last administered on 12/09/16 09:31; Start 12/09/16 at 09:00; Stop 12/09/16 at 09:29 ; Status DC Sodium Chloride 1,000 ml @ 999 mls/hr BOLUS ONCE IV Last administered on 12/09 09:31; Start 12/09/16 at 09:00; Stop 12/09/16 at 10:00; Status DC Iohexol (Omnipaque 350 Inj) 80 ml STK-MED ONCE IV PUSH Last administered on 08:50; Start 12/09/16 at 08:50; Stop 12/09/16 at 08:51; Status DC Sodium Chloride 1,000 ml @ 100 mls/hr Q10H IV Last administered on 12/11/16 05:36; Start 12/09/16 at 12:56; Stop 12/14/16 at 14:05; Status DC Sodium Chloride (NS Flush) 2 ml UNSCH PRN IV FLUSH FLUSH AFTER USING IV ACCESS Last administered on 12/12/16 17:04; Start 12/09/16 at 13:00; Stop 12/14/16 at 14:05; Status DC Sodium Chloride (NS Flush) 2 ml BID IV FLUSH Last administered on 12/13/16 21: 03; Start 12/09/16 at 21:00; Stop 12/14/16 at 14:06; Status DC Ondansetron HCl (Zofran Inj) 4 mg Q6H PRN IV NAUSEA OR VOMITING; Start at 13:00; Stop 12/14/16 at 14:05; Status DC Famotidine (Pepcid) 20 mg BID PO Last administered on 12/13/16 21:03; Start at 21:00; Stop 12/14/16 at 14:05; Status DC Docusate Sodium (Colace) 100 mg BID PO Last administered on 12/12/16 21:04; Start 12/09/16 at 21:00; Stop 12/14/16 at 14:05; Status DC Vancomycin HCl 1000 mg/Sodium Chloride 250 ml @ 250 mls/hr Q12H IV Last administered on 12/13/16 23:17; Start 12/09/16 at 23:00; Stop 12/14/16 at 14:05 ; Status DC Miscellaneous Information (Post-op Orders (for Pharmacy)) STAT ONCE XX ; Start 12/09/16 at 13:00; Stop 12/09/16 at 13:34; Status DC Oxycodone/ Acetaminophen (Percocet 5-325 Mg) 1 tab Q4H PRN PO PAIN SCALE 3 TO 5 Last administered on 12/12/16 17:04; Start 12/09/16 at 13:00; Stop 12/14/16 at 14:05; Status DC Morphine Sulfate (Morphine Inj) 2 mg Q3H PRN IV PAIN 6-10 Last administered on 12/09/16 19:15; Start 12/09/16 at 13:00; Stop 12/14/16 at 14:05; Status DC Naloxone HCl (Narcan Inj) 0.4 mg UNSCH PRN IV SEE LABEL COMMENTS; Start at 13:00; Stop 12/14/16 at 14:05; Status DC Piperacillin Sod/ Tazobactam Sod 50 ml @ 100 mls/hr Q8H IV Last administered on 12/17/16 09:44; Start 12/09/16 at 18:00 Lidocaine HCl (Xylocaine 1% Inj) 20 ml STK-MED ONCE .ROUTE Last administered on 12/09/16 16:54; Start 12/09/16 at 16:54; Stop 12/09/16 at 16:55; Status DC Fentanyl Citrate (fentaNYL INJ) 100 mcg STK-MED ONCE .ROUTE Last administered on 12/09/16 17:00; Start 12/09/16 at 17:00; Stop 12/09/16 at 17:01; Status DC Midazolam HCl (Versed Inj) 2 mg STK-MED ONCE .ROUTE Last administered on 17:00; Start 12/09/16 at 17:00; Stop 12/09/16 at 17:01; Status DC Sodium Chloride (NS Inj) 10 ml DAILY IRRIGATION Last administered on 12/16/16 07:39; Start 12/10/16 at 09:00 Acetaminophen (Ofirmev 1000 Mg/ 100 ml Inj) 1,000 mg Q8H PRN IV TEMP > 101; Start 12/09/16 at 22:00 Lisinopril (Prinivil) 10 mg DAILY PO Last administered on 12/13/16 09:29; Start 12/11/16 at 19:34; Stop 12/14/16 at 14:05; Status DC Metoprolol Succinate (Toprol Xl) 25 mg DAILY PO Last administered on 12/13/16 09:29; Start 12/11/16 at 19:35; Stop 12/14/16 at 14:05; Status DC Enalaprilat (Vasotec Inj) 1.25 mg Q4H PRN IV PUSH SBP > OR = TO 160 Last administered on 12/16/16 17:20; Start 12/13/16 at 02:15 Diatrizoate Meglum/ Diatrizoate Sod (Md Watts Liq) 18 ml ONCE ONCE PO Last administered on 12/13/16 11:17; Start 12/13/16 at 09:33; Stop 12/13/16 at 09:59; Status DC Loperamide HCl (Imodium) 2 mg Q6H PRN PO diarrhea Last administered on 16:07; Start 12/13/16 at 15:30; Stop 12/14/16 at 14:05; Status DC Iohexol (Omnipaque 350 Inj) 91 ml STK-MED ONCE IVCONTRAST Last administered on 12/13/16 15:47; Start 12/13/16 at 15:47; Stop 12/13/16 at 15:48; Status DC Acetaminophen 100 ml @ As Directed STK-MED ONCE IV ; Start 12/14/16 at 09:47; Stop 12/14/16 at 09:48; Status DC Famotidine (Pepcid Inj) 20 mg STK-MED ONCE .ROUTE ; Start 12/14/16 at 09:48; Stop 12/14/16 at 09:49; Status DC Lactated Ringer's 1,000 ml @ 30 mls/hr Q24H PRN IV SEE LABEL COMMENTS; Start at 10:15; Stop 12/14/16 at 14:05; Status DC Sodium Chloride 500 ml @ 30 mls/hr [id number] PRN IV SEE LABEL COMMENTS; Start at 10:15; Stop 12/14/16 at 14:05; Status DC Povidone Iodine (Betadine 5% Antisepsis Kit) 1 applic CDL DRIVER PRN EACH NARE SEE LABEL COMMENTS; Start 12/14/16 at 10:15; Stop 12/17/16 at 10:14; Status DC Chlorhexidine Gluconate (Chlorhexidine 2% Cloth) 3 pack CDL DRIVER PRN TOPICAL SEE LABEL COMMENTS; Start 12/14/16 at 10:15; Stop 12/17/16 at 10:14; Status DC Insulin Human Regular (NovoLIN R INJ) See Protocol Table ... CDL DRIVER PRN SQ SEE PROTOCOL TABLE; Start 12/14/16 at 10:15; Stop 12/17/16 at 10:14; Status DC Metoprolol Tartrate (Lopressor) 25 mg CDL DRIVER PRN PO SEE LABEL COMMENTS; Start 12/14/16 at 10:15; Stop 12/17/16 at 10:14; Status DC Morphine Sulfate (*morphine INJ PERIprocedure ONLY) 8 mg STK-MED ONCE .ROUTE Last administered on 12/14/16 12:55; Start 12/14/16 at 12:55; Stop 12/14/16 at 12:56; Status DC Morphine Sulfate (*morphine INJ PERIprocedure ONLY) 8 mg STK-MED ONCE .ROUTE Last administered on 12/14/16 13:03; Start 12/14/16 at 13:03; Stop 12/14/16 at 13:04; Status DC Morphine Sulfate (*morphine INJ PERIprocedure ONLY) 8 mg STK-MED ONCE .ROUTE Last administered on 12/14/16 13:16; Start 12/14/16 at 13:16; Stop 12/14/16 at 13:17; Status DC Naloxone HCl (Narcan Inj) 0.4 mg UNSCH PRN IV PUSH RESPIRATORY RATE LESS THAN 10; Start 12/14/16 at 14:15 Morphine Sulfate (Morphine 1 Mg/ ml [employer]PER[employer]OR [employer]PERATIONS) 30 mg UNSCH IV Last administered on 03:01; Start 12/14/16 at 14:15; Stop 12/17/16 at 11:04; Status DC [employer]PER[employer] Dosage Infused (Pha) 1 Q8HR .XX Last administered on 12/17/16 05:56; Start 12/14/16 at 14:15; Stop 12/17/16 at 11:04; Status DC Fluconazole/ Sodium Chloride 50 ml @ 50 mls/hr Q24H IV Last administered on 15:39; Start 12/14/16 at 16:00 Miscellaneous Information ALL NURSING DEPARTME... UNSCH PRN .XX SEE LABEL COMMENTS; Start 12/14/16 at 13:00; Stop 12/15/16 at 12:59; Status DC Oxybenzone/ Padimate O/ Dimethicone (Blistex Lip [place]) 4.25 applic STK-MED ONCE TOPICAL Last administered on 12/14/16 15:04; Start 12/14/16 at 15:04; Stop at 15:05; Status DC Metoprolol Tartrate (Lopressor Inj) 5 mg Q6H IV PUSH Last administered on 16:33; Start 12/15/16 at 17:00; Stop 12/15/16 at 20:24; Status DC Lisinopril (Prinivil) 10 mg Q12HR NG Last administered on 12/17/16 09:41; Start 12/15/16 at 21:00 Clonidine (Catapres) 0.1 mg Q6H PRN PO SBP>160, DBP>90 Last administered on 05:53; Start 12/15/16 at 22:45 Lorazepam (Ativan Inj) 0.5 mg ONCE ONCE IV PUSH Last administered on 22:50; Start 12/15/16 at 22:45; Stop 12/16/16 at 10:33; Status DC Sodium Chloride 1,000 ml @ 40 mls/hr Q24H IV Last administered on 12/16/16 23 :14; Start 12/16/16 at 10:00 Enoxaparin Sodium (Lovenox Inj) 40 mg Q12H SQ Last administered on 12/17/16 12 :05; Start 12/16/16 at 11:00 Dextrose (D50w (Vial) Inj) 50 ml UNSCH PRN IV HYPOGLYCEMIA-SEE COMMENTS; Start 12/16/16 at 12:00 Glucagon (Glucagon Inj) 1 mg UNSCH PRN OTHER HYPOGLYCEMIA-SEE COMMENTS; Start 12/16/16 at 12:00 Insulin Aspart (NovoLOG SUPPLEMENTAL SCALE) 1 ACHS SLIDING SCALE SQ Last administered on 12/16/16 21:16; Start 12/16/16 at 12:00 Clonidine (Catapres-Tts 0.1mg Patch.7d) 1 patch Q7D T-DERMAL ; Start 12/16/16 at 13:00; Stop 12/16/16 at 13:00; Status DC Amlodipine Besylate (Norvasc) 5 mg ONCE ONCE PO Last administered on 13:06; Start 12/16/16 at 12:00; Stop 12/16/16 at 12:08; Status DC Amlodipine Besylate (Norvasc) 5 mg DAILY PO Last administered on 12/17/16 09: 40; Start 12/17/16 at 09:00 Potassium Phosphate 15 mmol/ Sodium Chloride 155 ml @ 38.75 mls/ hr ONCE ONCE IV Last administered on 12/16/16 14:29; Start 12/16/16 at 14:00; Stop at 17:59; Status DC Miscellaneous Information 1 Q7D T-DERMAL ; Start 12/23/16 at 13:00 Potassium Chloride (KCl) 40 meq ONCE ONCE PO Last administered on 12/17/16 09 :40; Start 12/17/16 at 08:00; Stop 12/17/16 at 08:12; Status DC Potassium Chloride (KCl) 40 meq ONCE ONCE PO Last administered on 12/17/16 12 :02; Start 12/17/16 at 10:00; Stop 12/17/16 at 10:01; Status DC Magnesium Sulfate/ Dextrose 100 ml @ 100 mls/hr Q1H IV Last administered on 12:00; Start 12/17/16 at 08:15; Stop 12/17/16 at 10:14; Status DC Sodium Phosphate 30 mmol/Sodium Chloride 260 ml @ 43.333 mls/ hr ONCE ONCE IV ; Start 12/17/16 at 09:00; Stop 12/17/16 at 14:59 Oxycodone/ Acetaminophen (Percocet 5-325 Mg) 1 tab Q4H PRN PO PAIN 3-5; Start 12/17/16 at 11:15 Morphine Sulfate (Morphine Inj) 4 mg Q3H PRN IV PUSH PAIN 6-10; Start 12/17/16 at 11:15 Furosemide (Lasix Inj) 40 mg ONCE ONCE IV PUSH ; Start 12/17/16 at 11:15; Stop 12/17/16 at 11:27; Status DC Urinary Catheter: No Vascular Central Line Catheter: No A/P Problem List: (1) Intra-abdominal abscess ICD Code: K65.1 - Peritoneal abscess Status: Acute (2) Sepsis ICD Code: A41.9 - Sepsis, unspecified organism Status: Acute (3) Hypertension ICD Code: I10 - Essential (primary) hypertension (4) Hypokalemia ICD Code: E87.6 - Hypokalemia (5) Hyperglycemia ICD Code: R73.9 - Hyperglycemia, unspecified Assessment and Plan Abdominal abscess status post drainage by interventional radiology Remains on antibiotics per infectious disease and surgery Hypertension started on Catapres patch due to being nothing by mouth at the moment-switch to by mouth medications Hyperglycemia we'll check a hemoglobin A1c suspect that patient will be diabetic Hypokalemia Will replace we'll replace and recheck A.m. labs check a CBC CMP TSH free T4 hemoglobin A1c magnesium and phosphorus A.m. labs Discussed with patient and RN Explained the patient that we will make some lifestyle changes including controlling blood sugars and treating his high blood pressure Hai Mendez DO Dec 17, 2016 13:09
[2016-12-17] MEDS ORDERED: HYDROCHLOROTHIAZIDE 25 MG TAB PO ONE (13:15)
[2016-12-17] MEDS: SODIUM CHLOR 0.9% 1000 ML INJ 1,000 ML IV SCH (14:52)
[2016-12-17 14:57] LABS: HEMOGLOBIN A1a 1.6 %; HEMOGLOBIN Ao 77.3 %; HEMOGLOBIN F 1.6 %; HEMOGLOBIN LA1C 2.2 %; HEMOGLOBIN P3 4.8 %
--- NOTE | 2016-12-17 15:56 | HHI.PR ---
Addendum to Inpatient Note Additional Information pt seen around 1400 full note to follow Shyanne Navarrete MD Dec 17, 2016 15:56
[2016-12-17 16:00] VITALS: BP 155/87; PULSE 94; RESP 18; TEMP 97.8; O2SAT 93
[2016-12-17 20:00] VITALS: BP 158/86; PULSE 92; RESP 17; TEMP 99.1; O2SAT 96
--- NOTE | 2016-12-17 20:25 | HHI.IDPN ---
Subjective Subjective Remarks doing OK on full liquid diet Had BM: soft, brown no fever Antibiotics zosyn fluconazole Allergies: Coded Allergies: No Known Allergies (Verified Allergy, Unknown, 12/09/16) Objective . Vital Signs Date Time Temp Pulse Resp B/P (MAP) Pulse Ox O2 Delivery O2 Flow Rate FiO2 12/17/16 16:00 97.8 94 18 155/87 (109) 93 12/17/16 12:00 98.8 93 16 173/86 (115) 92 12/17/16 08:00 98.6 92 18 155/95 (115) 97 12/17/16 05:56 20 12/17/16 04:54 Nasal Cannula 2.00 12/17/16 04:54 99.0 91 18 95 12/17/16 00:00 98.6 89 18 169/97 (121) 92 12/16/16 22:00 20 12/16/16 21:54 Nasal Cannula 2.00 92 12/17/16 12/17/16 12/18/16 15:00 23:00 07:00 Intake Total 1250 ml 1400 ml Output Total 30 ml 600 ml Balance 1220 ml 800 ml Intake Oral 1400 ml IV Total 1250 ml Output Urine Total 600 ml Drainage Total 30 ml # Bowel Movements 0 . Laboratory Tests Test 12/17/16 04:20 White Blood Count 18.5 TH/MM3 Red Blood Count 3.14 MIL/MM3 Hemoglobin 8.9 GM/DL Hematocrit 27.5 % Mean Corpuscular Volume 87.5 FL Mean Corpuscular Hemoglobin 28.3 PG Mean Corpuscular Hemoglobin Concent 32.3 % Red Cell Distribution Width 14.3 % Platelet Count 382 TH/MM3 Mean Platelet Volume 8.2 FL Neutrophils (%) (Auto) 77.9 % Lymphocytes (%) (Auto) 14.8 % Monocytes (%) (Auto) 5.5 % Eosinophils (%) (Auto) 1.1 % Basophils (%) (Auto) 0.7 % Neutrophils # (Auto) 14.4 TH/MM3 Lymphocytes # (Auto) 2.7 TH/MM3 Monocytes # (Auto) 1.0 TH/MM3 Eosinophils # (Auto) 0.2 TH/MM3 Basophils # (Auto) 0.1 TH/MM3 CBC Comment DIFF FINAL Differential Comment Laboratory Tests Test 12/17/16 04:20 Blood Urea Nitrogen 10 MG/DL Creatinine 0.85 MG/DL Random Glucose 142 MG/DL Total Protein 6.8 GM/DL Albumin 1.4 GM/DL Calcium Level 7.7 MG/DL Phosphorus Level 1.8 MG/DL Magnesium Level 1.7 MG/DL Alkaline Phosphatase 98 U/L Aspartate Amino Transf (AST/SGOT) 17 U/L Alanine Aminotransferase (ALT/SGPT) 11 U/L Total Bilirubin 0.4 MG/DL Sodium Level 143 MEQ/L Potassium Level 2.9 MEQ/L Chloride Level 106 MEQ/L Carbon Dioxide Level 27.8 MEQ/L Anion Gap 9 MEQ/L Estimat Glomerular Filtration Rate 115 ML/MIN Hemoglobin A1c 11.0 % Free Thyroxine 1.63 NG/DL Thyroid Stimulating Hormone 3rd Gen 2.250 uIU/ML Imaging Last Impressions Abdomen/Pelvis CT 12/13/16 1000 Signed Impressions: Service Date/Time: November 15:37 - CONCLUSION: 1. Well-positioned percutaneous drainage catheter with significant interval improvement of previously noted large 10.8 cm mid abdominal abscess. Residual small abscess cavity measuring 1.8 x 4.7 x 3.5 cm. 2. Interval development of multiple additional abdominal abscesses, as above. 3. Secondarily inflamed/reactive dilatation of several loops of small bowel particularly in the anterior left lower quadrant. 4. Redemonstration of indeterminant but stable hepatic lesions. These do not have the characteristic appearance of hepatic absceses. Again, hepatic ultrasound or MRI liver mass protocol is recommended for further characterization on outpatient basis. 5. Remainder of the exam is unchanged. Findings were personally discussed with Dr. Armenta at the time of this dictation. Julius Henley MD Abdomen X-Ray 12/09/16 0746 Signed Impressions: Service Date/Time: Friday, December 09, 2016 07:54 - CONCLUSION: There is no free air or definite signs of small bowel obstruction. However, the small bowel gas pattern is not completely normal. Consider followup to ensure resolution. Behzad Gutierrez MD Abscess Drainage CT 12/09/16 0000 Signed Impressions: Service Date/Time: Friday, December 09, 2016 17:41 - CONCLUSION: Uncomplicated CT guided drainage. 10 cc of couch, purulent fluid was aspirated from the catheter and sent to laboratory for analysis Kirt Angeles MD Physical Exam CONSTITUTIONAL/GENERAL: This is an adequately nourished patient, in no apparent distress TUBES/LINES/DRAINS: SKIN: No jaundice, rashes, or lesions. . Not diaphoretic. CARDIOVASCULAR: Regular rate and rhythm without murmurs, gallops, or rubs. No JVD. Peripheral pulses symmetric. RESPIRATORY/CHEST: Symmetric, unlabored respirations. Clear to auscultation. Breath sounds equal bilaterally. No wheezes, rales, or rhonchi. GASTROINTESTINAL: Abdomen with mils tenderness and distention, FREDA x [address] , minimal seros d/c Bowel sounds active Incision with dressing in place w/o staining MUSCULOSKELETAL: Extremities without clubbing, cyanosis, or edema NEUROLOGICAL: Awake and alert. Motor and sensory grossly within normal limits. Follows commands. Clear speech Moves all extremities. PSYCHIATRIC: calm, cooperative Assessment & Plan Remarks Intraabdominal abscess 2/2 perforated appendicitis mixed anaerobs on presentation, after 6 days of BSA - blaine. albicans Persistent marked leukocytosis, tyhough improved clinically Rec's; cont zosyn and fluconazol for today plan to switch to oral fluconazol and augmentin in the next 24 hrs -mnitor WBC Shyanne Navarrete MD Dec 17, 2016 20:25
[2016-12-17] MEDS: LISINOPRIL 20 MG TAB NG SCH (20:46)
[2016-12-17] MEDS: amLODIPine BESYLATE 5 MG TAB PO SCH (20:46)
[2016-12-17] MEDS: FLUCONAZOLE 100 MG PREMIX BAG 50 ML IV SCH (20:46)
[2016-12-18] VITALS: BP 130/81; PULSE 86; RESP 17; TEMP 98.2; O2SAT 97
[2016-12-18] MEDS: PIPERACIL-TAZO 3.375 GM PREMIX 50 ML IV SCH ×2 (02:00→03:27)
[2016-12-18 07:53] LABS: AUTOMATED NEUTROPHIL # 7.8 TH/MM3 (1.8-7.7); BASOPHIL # 0.1 TH/MM3 (0-0.2); BASOPHIL % 0.7 % (0.0-2.0); EOSINOPHIL # 0.3 TH/MM3 (0-0.4); EOSINOPHIL % 2.4 % (0.0-4.0); HEMATOCRIT 27.4 % (39.0-51.0); HEMO FLAGS DIFF FINAL; MEAN CELL VOLUME 86.8 FL (80.0-100.0); MEAN CORPUSCULAR HEMOGLOBIN 28.6 PG (27.0-34.0); MEAN CORPUSCULAR HGB CONC 32.9 % (32.0-36.0); MONO % 8.2 % (0.0-8.0); NEUT % 70.7 % (16.0-70.0); PLATELET COUNT 390 TH/MM3 (150-450); RED BLOOD COUNT 3.16 MIL/MM3 (4.50-5.90); RED CELL DISTRIBUTION WIDTH 13.7 % (11.6-17.2)
[2016-12-18 08:00] VITALS: BP 175/94; PULSE 85; RESP 16; TEMP 99.5; O2SAT 91
[2016-12-18 08:30] LABS: ALKALINE PHOSPHATASE 97 U/L (45-117); ALT (GPT) 12 U/L (12-78); ANION GAP 8 MEQ/L (5-15); AST (GOT) 16 U/L (15-37); BICARBONATE 31.3 MEQ/L (21.0-32.0); BLOOD UREA NITROGEN 7 MG/DL (7-18); CHLORIDE 101 MEQ/L (98-107); GLOMERULAR FILTRATION RATE 112 ML/MIN (>89); MAGNESIUM 1.6 MG/DL (1.5-2.5); SODIUM (NA) 140 MEQ/L (136-145); TOTAL BILIRUBIN ADULT 0.4 MG/DL (0.2-1.0)
[2016-12-18 08:34] LABS: POTASSIUM 2.9 MEQ/L (3.5-5.1)
[2016-12-18] MEDS: SODIUM CHLORIDE 0.9% 10 ML VIAL IRRIGATION SCH (09:00)
[2016-12-18] MEDS: HYDROCHLOROTHIAZIDE 25 MG TAB PO SCH (10:11)
[2016-12-18] MEDS: LISINOPRIL 20 MG TAB NG SCH ×2 (10:11→20:51)
[2016-12-18] MEDS: amLODIPine BESYLATE 5 MG TAB PO SCH ×2 (10:12→20:51)
[2016-12-18] MEDS: INSULIN ASPART SUPPLEMENTAL SCALE SQ SCH ×4 (10:13→20:52)
--- NOTE | 2016-12-18 11:53 | HHI.PR ---
Subjective Remarks This 51-year-old male presents to the [facility] emergency room with 1-week history of severe abdominal pain. The patient states he ate some sort of chicken a week ago, became violently ill, had abdominal pain, nausea and diarrhea. The diarrhea stopped, yet the pain is still severe and the patient finally presented to the emergency room. On workup he was found to have intra-abdominal interloop abscess and he is now being admitted for further care. We have been consult to help with medical management and high blood pressure 12-17 SUSPECT HE IS DIABETIC AND HYPERTENSIVE HAS HYPOKALEMIA WILL REPLACE WILL NEED DM EDUCATION PT DOES NOT BELIEVE AND LISTEN TO WHAT I AM SAYING SUSPECT WILL NOT BE VERY COMPLIANT WITH MEDICATION 12-18 patient's hemoglobin A1c is 11.0 will start on Levemir. We'll get diabetic education. We'll need to learn how to check sugars and give insulin. Patient appears quite upset with this news. I have discussed with him the need for education and the need to be compliant with medications and inability to live a normal life if he controls his blood sugars Objective Vitals Vital Signs Date Time Temp Pulse Resp B/P (MAP) Pulse Ox O2 Delivery O2 Flow Rate FiO2 12/18/16 08:00 99.5 85 16 175/94 (121) 91 12/18/16 00:00 98.2 86 17 130/81 (97) 97 12/17/16 20:00 Nasal Cannula 2.00 12/17/16 20:00 99.1 92 17 158/86 (110) 96 12/17/16 16:00 97.8 94 18 155/87 (109) 93 12/17/16 12:00 98.8 93 16 173/86 (115) 92 I/O 12/17/16 12/17/16 12/17/16 12/18/16 12/18/16 12/18/16 07:00 15:00 23:00 07:00 15:00 23:00 Intake Total 1050 ml 1250 ml 1400 ml 240 ml Output Total 225 ml 30 ml 600 ml Balance 825 ml 1220 ml 800 ml 240 ml Intake Oral 1400 ml 240 ml IV Total 1050 ml 1250 ml Output Urine Total 200 ml 600 ml Drainage Total 25 ml 30 ml # Voids 2 1 # Bowel Movements 0 Result Diagram: 12/18/16 0720 12/18/16 0720 Other Results Laboratory Tests Test 12/15/16 13:57 12/15/16 14:13 12/17/16 04:20 12/18/16 07:20 White Blood Count 21.3 TH/MM3 18.5 TH/MM3 11.0 TH/MM3 Red Blood Count 4.03 MIL/MM3 3.14 MIL/MM3 3.16 MIL/MM3 Hemoglobin 11.2 GM/DL 8.9 GM/DL 9.0 GM/DL Hematocrit 35.1 % 27.5 % 27.4 % Mean Corpuscular Volume 87.0 FL 87.5 FL 86.8 FL Mean Corpuscular Hemoglobin 27.7 PG 28.3 PG 28.6 PG Mean Corpuscular Hemoglobin Concent 31.9 % 32.3 % 32.9 % Red Cell Distribution Width 14.5 % 14.3 % 13.7 % Platelet Count 393 TH/MM3 382 TH/MM3 390 TH/MM3 Mean Platelet Volume 7.5 FL 8.2 FL 7.3 FL Blood Urea Nitrogen 16 MG/DL 10 MG/DL 7 MG/DL Creatinine 1.14 MG/DL 0.85 MG/DL 0.87 MG/DL Random Glucose 256 MG/DL 142 MG/DL 183 MG/DL Total Protein 6.3 GM/DL 6.8 GM/DL 6.8 GM/DL Calcium Level 7.4 MG/DL 7.7 MG/DL 8.3 MG/DL Sodium Level 140 MEQ/L 143 MEQ/L 140 MEQ/L Potassium Level 3.4 MEQ/L 2.9 MEQ/L 2.9 MEQ/L Chloride Level 106 MEQ/L 106 MEQ/L 101 MEQ/L Carbon Dioxide Level 24.8 MEQ/L 27.8 MEQ/L 31.3 MEQ/L Anion Gap 9 MEQ/L 9 MEQ/L 8 MEQ/L Estimat Glomerular Filtration Rate 82 ML/MIN 115 ML/MIN 112 ML/MIN Protein Corrected Calcium 7.8 MG/DL Neutrophils (%) (Auto) 77.9 % 70.7 % Lymphocytes (%) (Auto) 14.8 % 18.0 % Monocytes (%) (Auto) 5.5 % 8.2 % Eosinophils (%) (Auto) 1.1 % 2.4 % Basophils (%) (Auto) 0.7 % 0.7 % Neutrophils # (Auto) 14.4 TH/MM3 7.8 TH/MM3 Lymphocytes # (Auto) 2.7 TH/MM3 2.0 TH/MM3 Monocytes # (Auto) 1.0 TH/MM3 0.9 TH/MM3 Eosinophils # (Auto) 0.2 TH/MM3 0.3 TH/MM3 Basophils # (Auto) 0.1 TH/MM3 0.1 TH/MM3 CBC Comment DIFF FINAL DIFF FINAL Differential Comment Albumin 1.4 GM/DL 1.4 GM/DL Phosphorus Level 1.8 MG/DL 3.0 MG/DL Magnesium Level 1.7 MG/DL 1.6 MG/DL Alkaline Phosphatase 98 U/L 97 U/L Aspartate Amino Transf (AST/SGOT) 17 U/L 16 U/L Alanine Aminotransferase (ALT/SGPT) 11 U/L 12 U/L Total Bilirubin 0.4 MG/DL 0.4 MG/DL Hemoglobin A1c 11.0 % Free Thyroxine 1.63 NG/DL Thyroid Stimulating Hormone 3rd Gen 2.250 uIU/ML Imaging Last Impressions Abdomen/Pelvis CT 12/13/16 1000 Signed Impressions: Service Date/Time: November 15:37 - CONCLUSION: 1. Well-positioned percutaneous drainage catheter with significant interval improvement of previously noted large 10.8 cm mid abdominal abscess. Residual small abscess cavity measuring 1.8 x 4.7 x 3.5 cm. 2. Interval development of multiple additional abdominal abscesses, as above. 3. Secondarily inflamed/reactive dilatation of several loops of small bowel particularly in the anterior left lower quadrant. 4. Redemonstration of indeterminant but stable hepatic lesions. These do not have the characteristic appearance of hepatic absceses. Again, hepatic ultrasound or MRI liver mass protocol is recommended for further characterization on outpatient basis. 5. Remainder of the exam is unchanged. Findings were personally discussed with Dr. Armenta at the time of this dictation. Julius Henley MD Abdomen X-Ray 12/09/16 0746 Signed Impressions: Service Date/Time: Friday, December 09, 2016 07:54 - CONCLUSION: There is no free air or definite signs of small bowel obstruction. However, the small bowel gas pattern is not completely normal. Consider followup to ensure resolution. Behzad Gutierrez MD Abscess Drainage CT 12/09/16 0000 Signed Impressions: Service Date/Time: Friday, December 09, 2016 17:41 - CONCLUSION: Uncomplicated CT guided drainage. 10 cc of couch, purulent fluid was aspirated from the catheter and sent to laboratory for analysis Kirt Angeles MD Objective Remarks GENERAL: Awake alert and oriented talkative not so cooperative not happy with his new diagnoses SKIN: Warm and dry. HEAD: Atraumatic. Normocephalic. EYES: Pupils equal and round. No scleral icterus. No injection or drainage. Extraocular muscles intact ENT: No nasal bleeding or discharge. Mucous membranes pink and moist. Tongue is midline NECK: Trachea midline. No JVD. Neck is supple CARDIOVASCULAR: Regular rate and rhythm. S1-S2 no S3 or S4 no heave or thrill or rub RESPIRATORY: No accessory muscle use. Clear to auscultation. Breath sounds equal bilaterally. GASTROINTESTINAL: Abdomen soft, non-tender, nondistended. Hepatic and splenic margins not palpable. Some diffuse tenderness MUSCULOSKELETAL: Extremities without clubbing, cyanosis, or edema. No obvious deformities. NEUROLOGICAL: Awake and alert. No obvious cranial nerve deficits. Motor grossly within normal limits. Five out of 5 muscle strength in the arms and legs. Normal speech. PSYCHIATRIC: INAppropriate mood and affect; insight and judgment ABnormal. Procedures AMISHA ARMENTA MD DATE OF SURGERY: 12/14/2016 PREOPERATIVE DIAGNOSIS Interloop abdominal abscesses status post percutaneous drainage. POSTOPERATIVE DIAGNOSIS Interloop abdominal abscesses status post percutaneous drainage. Perforated appendicitis with necrosis of medial portion of the cecum, spillage of the stool. OPERATIVE PROCEDURE Exploratory laparotomy, evacuation intra-abdominal abscesses, lysis of adhesions and right hemicolectomy with primary anastomosis. Medications and IVs Current Medications Ondansetron HCl (Zofran Inj) 4 mg ONCE ONCE IVP Last administered on 08:11; Start 12/09/16 at 08:00; Stop 12/09/16 at 08:01; Status DC Sodium Chloride 1,000 ml @ 1,000 mls/hr Q1H IV Last administered on 12/09/16 08:10; Start 12/09/16 at 07:46; Stop 12/09/16 at 08:45; Status DC Sodium Chloride (NS Flush) 2 ml UNSCH PRN IV FLUSH FLUSH AFTER USING IV ACCESS Last administered on 12/09/16 10:37; Start 12/09/16 at 08:00; Stop 12/09/16 at 13:31; Status DC Ketorolac Tromethamine (Toradol Inj) 30 mg ONCE ONCE IVP Last administered on 12/09/16 08:13; Start 12/09/16 at 08:00; Stop 12/09/16 at 08:01; Status DC Vancomycin HCl 1000 mg/Sodium Chloride 250 ml @ 250 mls/hr ONCE ONCE IV Last administered on 12/09/16 10:38; Start 12/09/16 at 09:00; Stop 12/09/16 at 09:59 ; Status DC Piperacillin Sod/ Tazobactam Sod 100 ml @ 200 mls/hr ONCE ONCE IV Last administered on 12/09/16 09:31; Start 12/09/16 at 09:00; Stop 12/09/16 at 09:29 ; Status DC Sodium Chloride 1,000 ml @ 999 mls/hr BOLUS ONCE IV Last administered on 12/09 09:31; Start 12/09/16 at 09:00; Stop 12/09/16 at 10:00; Status DC Iohexol (Omnipaque 350 Inj) 80 ml STK-MED ONCE IV PUSH Last administered on 08:50; Start 12/09/16 at 08:50; Stop 12/09/16 at 08:51; Status DC Sodium Chloride 1,000 ml @ 100 mls/hr Q10H IV Last administered on 12/11/16 05:36; Start 12/09/16 at 12:56; Stop 12/14/16 at 14:05; Status DC Sodium Chloride (NS Flush) 2 ml UNSCH PRN IV FLUSH FLUSH AFTER USING IV ACCESS Last administered on 12/12/16 17:04; Start 12/09/16 at 13:00; Stop 12/14/16 at 14:05; Status DC Sodium Chloride (NS Flush) 2 ml BID IV FLUSH Last administered on 12/13/16 21: 03; Start 12/09/16 at 21:00; Stop 12/14/16 at 14:06; Status DC Ondansetron HCl (Zofran Inj) 4 mg Q6H PRN IV NAUSEA OR VOMITING; Start at 13:00; Stop 12/14/16 at 14:05; Status DC Famotidine (Pepcid) 20 mg BID PO Last administered on 12/13/16 21:03; Start at 21:00; Stop 12/14/16 at 14:05; Status DC Docusate Sodium (Colace) 100 mg BID PO Last administered on 12/12/16 21:04; Start 12/09/16 at 21:00; Stop 12/14/16 at 14:05; Status DC Vancomycin HCl 1000 mg/Sodium Chloride 250 ml @ 250 mls/hr Q12H IV Last administered on 12/13/16 23:17; Start 12/09/16 at 23:00; Stop 12/14/16 at 14:05 ; Status DC Miscellaneous Information (Post-op Orders (for Pharmacy)) STAT ONCE XX ; Start 12/09/16 at 13:00; Stop 12/09/16 at 13:34; Status DC Oxycodone/ Acetaminophen (Percocet 5-325 Mg) 1 tab Q4H PRN PO PAIN SCALE 3 TO 5 Last administered on 12/12/16 17:04; Start 12/09/16 at 13:00; Stop 12/14/16 at 14:05; Status DC Morphine Sulfate (Morphine Inj) 2 mg Q3H PRN IV PAIN 6-10 Last administered on 12/09/16 19:15; Start 12/09/16 at 13:00; Stop 12/14/16 at 14:05; Status DC Naloxone HCl (Narcan Inj) 0.4 mg UNSCH PRN IV SEE LABEL COMMENTS; Start at 13:00; Stop 12/14/16 at 14:05; Status DC Piperacillin Sod/ Tazobactam Sod 50 ml @ 100 mls/hr Q8H IV Last administered on 12/18/16 03:27; Start 12/09/16 at 18:00 Lidocaine HCl (Xylocaine 1% Inj) 20 ml STK-MED ONCE .ROUTE Last administered on 12/09/16 16:54; Start 12/09/16 at 16:54; Stop 12/09/16 at 16:55; Status DC Fentanyl Citrate (fentaNYL INJ) 100 mcg STK-MED ONCE .ROUTE Last administered on 12/09/16 17:00; Start 12/09/16 at 17:00; Stop 12/09/16 at 17:01; Status DC Midazolam HCl (Versed Inj) 2 mg STK-MED ONCE .ROUTE Last administered on 17:00; Start 12/09/16 at 17:00; Stop 12/09/16 at 17:01; Status DC Sodium Chloride (NS Inj) 10 ml DAILY IRRIGATION Last administered on 12/16/16 07:39; Start 12/10/16 at 09:00 Acetaminophen (Ofirmev 1000 Mg/ 100 ml Inj) 1,000 mg Q8H PRN IV TEMP > 101; Start 12/09/16 at 22:00 Lisinopril (Prinivil) 10 mg DAILY PO Last administered on 12/13/16 09:29; Start 12/11/16 at 19:34; Stop 12/14/16 at 14:05; Status DC Metoprolol Succinate (Toprol Xl) 25 mg DAILY PO Last administered on 12/13/16 09:29; Start 12/11/16 at 19:35; Stop 12/14/16 at 14:05; Status DC Enalaprilat (Vasotec Inj) 1.25 mg Q4H PRN IV PUSH SBP > OR = TO 160 Last administered on 12/16/16 17:20; Start 12/13/16 at 02:15 Diatrizoate Meglum/ Diatrizoate Sod ( Gastroview Liq) 18 ml ONCE ONCE PO Last administered on 12/13/16 11:17; Start 12/13/16 at 09:33; Stop 12/13/16 at 09:59; Status DC Loperamide HCl (Imodium) 2 mg Q6H PRN PO diarrhea Last administered on 16:07; Start 12/13/16 at 15:30; Stop 12/14/16 at 14:05; Status DC Iohexol (Omnipaque 350 Inj) 91 ml STK-MED ONCE IVCONTRAST Last administered on 12/13/16 15:47; Start 12/13/16 at 15:47; Stop 12/13/16 at 15:48; Status DC Acetaminophen 100 ml @ As Directed STK-MED ONCE IV ; Start 12/14/16 at 09:47; Stop 12/14/16 at 09:48; Status DC Famotidine (Pepcid Inj) 20 mg STK-MED ONCE .ROUTE ; Start 12/14/16 at 09:48; Stop 12/14/16 at 09:49; Status DC Lactated Ringer's 1,000 ml @ 30 mls/hr Q24H PRN IV SEE LABEL COMMENTS; Start at 10:15; Stop 12/14/16 at 14:05; Status DC Sodium Chloride 500 ml @ 30 mls/hr [id number] PRN IV SEE LABEL COMMENTS; Start at 10:15; Stop 12/14/16 at 14:05; Status DC Povidone Iodine (Betadine 5% Antisepsis Kit) 1 applic ACCOUNT RELATIONSHIP MANAGER PRN EACH NARE SEE LABEL COMMENTS; Start 12/14/16 at 10:15; Stop 12/17/16 at 10:14; Status DC Chlorhexidine Gluconate (Chlorhexidine 2% Cloth) 3 pack ACCOUNT RELATIONSHIP MANAGER PRN TOPICAL SEE LABEL COMMENTS; Start 12/14/16 at 10:15; Stop 12/17/16 at 10:14; Status DC Insulin Human Regular (NovoLIN R INJ) See Protocol Table ... ACCOUNT RELATIONSHIP MANAGER PRN SQ SEE PROTOCOL TABLE; Start 12/14/16 at 10:15; Stop 12/17/16 at 10:14; Status DC Metoprolol Tartrate (Lopressor) 25 mg ACCOUNT RELATIONSHIP MANAGER PRN PO SEE LABEL COMMENTS; Start 12/14/16 at 10:15; Stop 12/17/16 at 10:14; Status DC Morphine Sulfate (*morphine INJ PERIprocedure ONLY) 8 mg STK-MED ONCE .ROUTE Last administered on 12/14/16 12:55; Start 12/14/16 at 12:55; Stop 12/14/16 at 12:56; Status DC Morphine Sulfate (*morphine INJ PERIprocedure ONLY) 8 mg STK-MED ONCE .ROUTE Last administered on 12/14/16 13:03; Start 12/14/16 at 13:03; Stop 12/14/16 at 13:04; Status DC Morphine Sulfate (*morphine INJ PERIprocedure ONLY) 8 mg STK-MED ONCE .ROUTE Last administered on 12/14/16 13:16; Start 12/14/16 at 13:16; Stop 12/14/16 at 13:17; Status DC Naloxone HCl (Narcan Inj) 0.4 mg UNSCH PRN IV PUSH RESPIRATORY RATE LESS THAN 10; Start 12/14/16 at 14:15 Morphine Sulfate (Morphine 1 Mg/ ml LOAN PROCESSOR) 30 mg UNSCH IV Last administered on 03:01; Start 12/14/16 at 14:15; Stop 12/17/16 at 11:04; Status DC LOAN PROCESSOR Dosage Infused (Pha) 1 Q8HR .XX Last administered on 12/17/16 05:56; Start 12/14/16 at 14:15; Stop 12/17/16 at 11:04; Status DC Fluconazole/ Sodium Chloride 50 ml @ 50 mls/hr Q24H IV Last administered on 20:46; Start 12/14/16 at 16:00 Miscellaneous Information ALL NURSING DEPARTME... UNSCH PRN .XX SEE LABEL COMMENTS; Start 12/14/16 at 13:00; Stop 12/15/16 at 12:59; Status DC Oxybenzone/ Padimate O/ Dimethicone (Blistex Lip [place]) 4.25 applic STK-MED ONCE TOPICAL Last administered on 12/14/16 15:04; Start 12/14/16 at 15:04; Stop at 15:05; Status DC Metoprolol Tartrate (Lopressor Inj) 5 mg Q6H IV PUSH Last administered on 16:33; Start 12/15/16 at 17:00; Stop 12/15/16 at 20:24; Status DC Lisinopril (Prinivil) 10 mg Q12HR NG Last administered on 12/17/16 09:41; Start 12/15/16 at 21:00; Stop 12/17/16 at 13:12; Status DC Clonidine (Catapres) 0.1 mg Q6H PRN PO SBP>160, DBP>90 Last administered on 05:53; Start 12/15/16 at 22:45 Lorazepam (Ativan Inj) 0.5 mg ONCE ONCE IV PUSH Last administered on 22:50; Start 12/15/16 at 22:45; Stop 12/16/16 at 10:33; Status DC Sodium Chloride 1,000 ml @ 40 mls/hr Q24H IV Last administered on 12/17/16 14 :52; Start 12/16/16 at 10:00 Enoxaparin Sodium (Lovenox Inj) 40 mg Q12H SQ Last administered on 12/17/16 22 :08; Start 12/16/16 at 11:00 Dextrose (D50w (Vial) Inj) 50 ml UNSCH PRN IV HYPOGLYCEMIA-SEE COMMENTS; Start 12/16/16 at 12:00 Glucagon (Glucagon Inj) 1 mg UNSCH PRN OTHER HYPOGLYCEMIA-SEE COMMENTS; Start 12/16/16 at 12:00 Insulin Aspart (NovoLOG SUPPLEMENTAL SCALE) 1 ACHS SLIDING SCALE SQ Last administered on 12/18/16 10:13; Start 12/16/16 at 12:00 Clonidine (Catapres-Tts 0.1mg Patch.7d) 1 patch Q7D T-DERMAL ; Start 12/16/16 at 13:00; Stop 12/16/16 at 13:00; Status DC Amlodipine Besylate (Norvasc) 5 mg ONCE ONCE PO Last administered on 13:06; Start 12/16/16 at 12:00; Stop 12/16/16 at 12:08; Status DC Amlodipine Besylate (Norvasc) 5 mg DAILY PO Last administered on 12/17/16 09: 40; Start 12/17/16 at 09:00; Stop 12/17/16 at 13:12; Status DC Potassium Phosphate 15 mmol/ Sodium Chloride 155 ml @ 38.75 mls/ hr ONCE ONCE IV Last administered on 12/16/16 14:29; Start 12/16/16 at 14:00; Stop at 17:59; Status DC Miscellaneous Information 1 Q7D T-DERMAL ; Start 12/23/16 at 13:00 Potassium Chloride (KCl) 40 meq ONCE ONCE PO Last administered on 12/17/16 09 :40; Start 12/17/16 at 08:00; Stop 12/17/16 at 08:12; Status DC Potassium Chloride (KCl) 40 meq ONCE ONCE PO Last administered on 12/17/16 12 :02; Start 12/17/16 at 10:00; Stop 12/17/16 at 10:01; Status DC Magnesium Sulfate/ Dextrose 100 ml @ 100 mls/hr Q1H IV Last administered on 12:00; Start 12/17/16 at 08:15; Stop 12/17/16 at 10:14; Status DC Sodium Phosphate 30 mmol/Sodium Chloride 260 ml @ 43.333 mls/ hr ONCE ONCE IV Last administered on 12/17/16 14:53; Start 12/17/16 at 09:00; Stop 12/17/16 at 14:59; Status DC Oxycodone/ Acetaminophen (Percocet 5-325 Mg) 1 tab Q4H PRN PO PAIN 3-5; Start 12/17/16 at 11:15 Morphine Sulfate (Morphine Inj) 4 mg Q3H PRN IV PUSH PAIN 6-10; Start 12/17/16 at 11:15 Furosemide (Lasix Inj) 40 mg ONCE ONCE IV PUSH Last administered on 12/17/16 14:51; Start 12/17/16 at 11:15; Stop 12/17/16 at 11:27; Status DC Amlodipine Besylate (Norvasc) 5 mg BID PO Last administered on 12/18/16 10:12 ; Start 12/17/16 at 21:00 Lisinopril (Prinivil) 20 mg Q12HR NG Last administered on 12/18/16 10:11; Start 12/17/16 at 21:00 Hydrochlorothiazide (Hydrodiuril) 25 mg ONCE ONCE PO Last administered on 12/17 14:51; Start 12/17/16 at 13:15; Stop 12/17/16 at 13:16; Status DC Hydrochlorothiazide (Hydrodiuril) 25 mg DAILY PO Last administered on 10:11; Start 12/18/16 at 09:00 Insulin Detemir (Levemir Inj) 10 units HS SQ ; Start 12/18/16 at 21:00 Magnesium Sulfate/ Dextrose 100 ml @ 100 mls/hr Q1H IV ; Start 12/18/16 at 12: 00; Stop 12/18/16 at 13:59 Potassium Chloride (KCl) 40 meq ONCE ONCE PO ; Start 12/18/16 at 13:00; Stop at 13:01 Potassium Chloride (KCl) 40 meq ONCE ONCE PO ; Start 12/18/16 at 15:00; Stop at 15:01 Urinary Catheter: No Vascular Central Line Catheter: No A/P Problem List: (1) Intra-abdominal abscess ICD Code: K65.1 - Peritoneal abscess Status: Acute (2) Sepsis ICD Code: A41.9 - Sepsis, unspecified organism Status: Acute (3) Hypertension ICD Code: I10 - Essential (primary) hypertension (4) Hypokalemia ICD Code: E87.6 - Hypokalemia (5) Hyperglycemia ICD Code: R73.9 - Hyperglycemia, unspecified Assessment and Plan Abdominal abscess status post drainage by interventional radiology Remains on antibiotics per infectious disease and surgery Hypertension started on Catapres patch due to being nothing by mouth at the moment-switch to by mouth medications Hyperglycemia we'll check a hemoglobin A1c suspect that patient will be diabetic hemoglobin A1c is 11.0 Hypokalemia Will replace we'll replace and recheck will need replacement A.m. labs check a CBC CMP TSH free T4 hemoglobin A1c magnesium and phosphorus A.m. labs Discussed with patient and RN Explained the patient that we will make some lifestyle changes including controlling blood sugars and treating his high blood pressure Diabetic education started on Levemir 10 units subcutaneous daily Hai Mendez DO Dec 18, 2016 11:53
[2016-12-18 12:00] VITALS: BP 168/90; PULSE 84; RESP 16; TEMP 99.1; O2SAT 91
[2016-12-18] MEDS ORDERED: POTASSIUM CHLORIDE 10 MEQ CONTROLLED RELEASE TAB PO ONE ×2 (13:00→15:00)
--- NOTE | 2016-12-18 13:13 | PD.CAR.PN ---
CVT Progress Note Subjective/Hospital Course: 12/10/16 Patient doing well at this time Abdomen soft with active bowel sounds and grayish yellow pus draining from the percutaneously placed pigtail catheter Will repeat CT scan of abdomen and pelvis or Saturday, but this time with oral contrast to better delineate the source of this abscess Its my opinion is probably arising either from appendix or Meckel's diverticulum the latter being most likely Antibiotic regimen reinforced with nurses today 12/11/16 Patient doing well at this time Abdomen is soft with active bowel sounds and pigtail catheter is draining purulent material We will order CT of abdomen and pelvis with oral contrast for in see how much of this is remaining and how to proceed further 12/12/16 Patient doing very well Abdomen soft with active bowel sounds and mid abdominal masses deflated and almost gone although there must be still some purulent material in it Pigtail catheter still draining some purulent material Patient having several bowel movements and last few days which is semisolid and GI function is fully reestablished CT abdomen and pelvis with by mouth and IV contrast tomorrow to assess for residual presence of this collection and then decide which way to go with therapy 12/13/16 Patient underwent today repeat CAT scan of the abdomen which reveals multiple intra-abdominal abscesses in the pelvis as well as interloop abscesses in multiple locations in the lower abdomen. This signified the failure of conservative therapy and patient will need exploratory laparotomy washout and likely colon resection for this seems to be the most likely origin of this Patient ate today will remain on antibiotics will be taken to the operating room for surgery tomorrow Abdomen remains soft with hypoactive bowel sounds and no rebound or guarding so these abscesses at this point are indolent 12/15/16 Patient underwent yesterday successful exploratory laparotomy washout and right partial hemicolectomy for perforated cecum at the site of gangrenous appendicitis Postoperatively patient is doing well Abdomen soft active bowel sounds Incision is clean and dry NG tube has been adjusted Transfer to floor and continue nothing by mouth Decrease IV rate 12/16/16 Patient doing okay Since transfer to the floor did not receive any IV fluids because the orders were not transcribed NG tube is on my arrival almost out and in the posterior pharynx instead of stomach Patient has no SCDs which he should've had all along Hasn't been taken out of bed since arrival to the floor yesterday Incision is clean and dry Plan DC NG tube DC Steve Out of bed/encouraged deep breathing and ambulation for otherwise patient will develop atelectasis and pneumonia ID consult is appreciated 12/17/16 Patient doing very well Incision clean and dry and abdomen soft with active bowel sounds, mildly tender at the incision but no rebound or guarding Patient passing gas and had 2 bowel movements today Will advance to clear liquids changed to by mouth pain medication and discontinue SECURITY SYSTEM ENGINEER pump Patient needs to actively ambulate Remove pelvic FREDA 12/18/16 Incision clean and dry Abdomen soft active bowel sounds patient passing gas and having daily bowel movements Will advance diet Will keep on IV antibiotics till infectious disease thinks we can switch him to by mouth DC second FREDA Plan to discharge patient tomorrow all things equal Objective: Vital Signs Date Time Temp Pulse Resp B/P (MAP) Pulse Ox O2 Delivery O2 Flow Rate FiO2 12/18/16 12:00 99.1 84 16 168/90 (116) 91 12/18/16 08:00 99.5 85 16 175/94 (121) 91 12/18/16 00:00 98.2 86 17 130/81 (97) 97 12/17/16 20:00 Nasal Cannula 2.00 12/17/16 20:00 99.1 92 17 158/86 (110) 96 12/17/16 16:00 97.8 94 18 155/87 (109) 93 Labs: Laboratory Tests Test 12/18/16 07:20 White Blood Count 11.0 TH/MM3 (4.0-11.0) Red Blood Count 3.16 MIL/MM3 (4.50-5.90) Hemoglobin 9.0 GM/DL (13.0-17.0) Hematocrit 27.4 % (39.0-51.0) Mean Corpuscular Volume 86.8 FL (80.0-100.0) Mean Corpuscular Hemoglobin 28.6 PG (27.0-34.0) Mean Corpuscular Hemoglobin Concent 32.9 % (32.0-36.0) Red Cell Distribution Width 13.7 % (11.6-17.2) Platelet Count 390 TH/MM3 (150-450) Mean Platelet Volume 7.3 FL (7.0-11.0) Neutrophils (%) (Auto) 70.7 % (16.0-70.0) Lymphocytes (%) (Auto) 18.0 % (9.0-44.0) Monocytes (%) (Auto) 8.2 % (0.0-8.0) Eosinophils (%) (Auto) 2.4 % (0.0-4.0) Basophils (%) (Auto) 0.7 % (0.0-2.0) Neutrophils # (Auto) 7.8 TH/MM3 (1.8-7.7) Lymphocytes # (Auto) 2.0 TH/MM3 (1.0-4.8) Monocytes # (Auto) 0.9 TH/MM3 (0-0.9) Eosinophils # (Auto) 0.3 TH/MM3 (0-0.4) Basophils # (Auto) 0.1 TH/MM3 (0-0.2) CBC Comment DIFF FINAL Differential Comment Blood Urea Nitrogen 7 MG/DL (7-18) Creatinine 0.87 MG/DL (0.60-1.30) Random Glucose 183 MG/DL (74-106) Total Protein 6.8 GM/DL (6.4-8.2) Albumin 1.4 GM/DL (3.4-5.0) Calcium Level 8.3 MG/DL (8.5-10.1) Phosphorus Level 3.0 MG/DL (2.5-4.9) Magnesium Level 1.6 MG/DL (1.5-2.5) Alkaline Phosphatase 97 U/L (45-117) Aspartate Amino Transf (AST/SGOT) 16 U/L (15-37) Alanine Aminotransferase (ALT/SGPT) 12 U/L (12-78) Total Bilirubin 0.4 MG/DL (0.2-1.0) Sodium Level 140 MEQ/L (136-145) Potassium Level 2.9 MEQ/L (3.5-5.1) Chloride Level 101 MEQ/L (98-107) Carbon Dioxide Level 31.3 MEQ/L (21.0-32.0) Anion Gap 8 MEQ/L (5-15) Estimat Glomerular Filtration Rate 112 ML/MIN (>89) Result Diagram: 12/18/16 0720 12/18/16 0720 Mili Armenta MD Dec 18, 2016 13:13
[2016-12-18] MEDS: MAGNESIUM SULFATE 1 GM PREMIX 100 ML IV SCH ×2 (13:18→15:16)
[2016-12-18] MEDS: ENOXAPARIN SODIUM 40 MG/0.4 ML SYRINGE SQ SCH ×2 (13:19→23:31)
[2016-12-18] MEDS ORDERED: MORPHINE SULFATE 4 MG/ML INJ IV PUSH PRN (14:15)
[2016-12-18] MEDS: AMOXICILLIN/CLAVULANATE K 500 MG TAB PO SCH ×2 (15:17→21:00)
[2016-12-18] MEDS: cloNIDine HCL 0.1 MG TAB PO PRN (15:36)
[2016-12-18 16:00] VITALS: BP 183/105; PULSE 92; RESP 16; TEMP 97.4; O2SAT 92
[2016-12-18] MEDS ORDERED: AUGM500T7 PO (16:26)
[2016-12-18] MEDS ORDERED: PERC5TAB12 PO (16:27)
[2016-12-18] MEDS ORDERED: DIFL200T PO (16:29)
--- NOTE | 2016-12-18 16:31 | HHI.DS ---
Discharge Summary Admission Date Dec 09, 2016 at 09:47 Admitting Diagnosis Abdominal Abscess, Sepsis. (1) Intra-abdominal abscess ICD Codes: K65.1 - Peritoneal abscess Status: Acute (2) Sepsis ICD Codes: A41.9 - Sepsis, unspecified organism Status: Acute (3) Hypertension ICD Codes: I10 - Essential (primary) hypertension (4) Hypokalemia ICD Codes: E87.6 - Hypokalemia (5) Hyperglycemia ICD Codes: R73.9 - Hyperglycemia, unspecified CBC/BMP: 12/18/16 0720 12/18/16 0720 Significant Findings Laboratory Tests Test 12/17/16 04:20 12/18/16 07:20 White Blood Count 18.5 TH/MM3 (4.0-11.0) Red Blood Count 3.14 MIL/MM3 (4.50-5.90) 3.16 MIL/MM3 (4.50-5.90) Hemoglobin 8.9 GM/DL (13.0-17.0) 9.0 GM/DL (13.0-17.0) Hematocrit 27.5 % (39.0-51.0) 27.4 % (39.0-51.0) Neutrophils (%) (Auto) 77.9 % (16.0-70.0) 70.7 % (16.0-70.0) Neutrophils # (Auto) 14.4 TH/MM3 (1.8-7.7) 7.8 TH/MM3 (1.8-7.7) Monocytes # (Auto) 1.0 TH/MM3 (0-0.9) Random Glucose 142 MG/DL (74-106) 183 MG/DL (74-106) Albumin 1.4 GM/DL (3.4-5.0) 1.4 GM/DL (3.4-5.0) Calcium Level 7.7 MG/DL (8.5-10.1) 8.3 MG/DL (8.5-10.1) Phosphorus Level 1.8 MG/DL (2.5-4.9) Alanine Aminotransferase (ALT/SGPT) 11 U/L (12-78) Potassium Level 2.9 MEQ/L (3.5-5.1) 2.9 MEQ/L (3.5-5.1) Hemoglobin A1c 11.0 % (4.3-6.0) Free Thyroxine 1.63 NG/DL (0.76-1.46) Monocytes (%) (Auto) 8.2 % (0.0-8.0) Pt Condition on Discharge: Good Discharge Disposition: Discharge Home Discharge Instructions DIET: Follow Instructions for: Diabetic Diet Activities you can perform: Regular-No Restrictions Additional Activity Instructio: No lifting > 30lbs x 6 weeks Mili Armenta MD Dec 18, 2016 16:31
[2016-12-18 20:00] VITALS: BP 137/86; PULSE 84; RESP 17; TEMP 99.2; O2SAT 94
[2016-12-18] MEDS ORDERED: INSULIN DETEMIR 100 UNITS/ML VIAL SQ SCH (21:00)
[2016-12-19] VITALS: BP 128/83; PULSE 86; RESP 17; TEMP 98.9; O2SAT 95
[2016-12-19] MEDS: AMOXICILLIN/CLAVULANATE K 500 MG TAB PO SCH ×2 (05:49→12:36)
[2016-12-19 07:17] LABS: AUTOMATED NEUTROPHIL # 6.6 TH/MM3 (1.8-7.7); BASOPHIL # 0.1 TH/MM3 (0-0.2); BASOPHIL % 0.5 % (0.0-2.0); EOSINOPHIL # 0.2 TH/MM3 (0-0.4); EOSINOPHIL % 2.2 % (0.0-4.0); HEMATOCRIT 28.9 % (39.0-51.0); HEMO FLAGS DIFF FINAL; LYMPH % 24.9 % (9.0-44.0); LYMPHOCYTE # 2.6 TH/MM3 (1.0-4.8); MEAN CORPUSCULAR HEMOGLOBIN 28.5 PG (27.0-34.0); MEAN CORPUSCULAR HGB CONC 33.1 % (32.0-36.0); MONO % 8.3 % (0.0-8.0); NEUT % 64.1 % (16.0-70.0); PLATELET COUNT 410 TH/MM3 (150-450); RED BLOOD COUNT 3.36 MIL/MM3 (4.50-5.90); RED CELL DISTRIBUTION WIDTH 13.8 % (11.6-17.2); WHITE BLOOD COUNT 10.4 TH/MM3 (4.0-11.0)
[2016-12-19] MEDS: SODIUM CHLORIDE 0.9% 10 ML VIAL IRRIGATION SCH (07:19)
[2016-12-19 07:40] LABS: ALKALINE PHOSPHATASE 107 U/L (45-117); ALT (GPT) 12 U/L (12-78); ANION GAP 9 MEQ/L (5-15); AST (GOT) 19 U/L (15-37); BICARBONATE 30.6 MEQ/L (21.0-32.0); BLOOD UREA NITROGEN 8 MG/DL (7-18); CHLORIDE 97 MEQ/L (98-107); GLOMERULAR FILTRATION RATE 146 ML/MIN (>89); MAGNESIUM 1.6 MG/DL (1.5-2.5); SODIUM (NA) 137 MEQ/L (136-145); TOTAL BILIRUBIN ADULT 0.3 MG/DL (0.2-1.0)
[2016-12-19 07:43] LABS: POTASSIUM 2.8 MEQ/L (3.5-5.1)
[2016-12-19 08:00] VITALS: BP 130/83; PULSE 87; RESP 17; TEMP 99.3; O2SAT 94
[2016-12-19] MEDS: INSULIN ASPART SUPPLEMENTAL SCALE SQ SCH ×2 (08:00→12:37)
[2016-12-19] MEDS ORDERED: POTASSIUM CHLORIDE 10 MEQ CONTROLLED RELEASE TAB PO ONE (08:15)
[2016-12-19] MEDS ORDERED: MAGNESIUM OXIDE 400 MG TAB PO ONE (08:15)
[2016-12-19] MEDS ORDERED: FLUCONAZOLE 200 MG TAB PO SCH (09:00)
[2016-12-19] MEDS ORDERED: POTASSIUM CHLORIDE 10 MEQ CONTROLLED RELEASE TAB PO SCH (09:00)
--- NOTE | 2016-12-19 10:15 | HHI.PR ---
Subjective Remarks This 51-year-old male presents to the [facility] emergency room with 1-week history of severe abdominal pain. The patient states he ate some sort of chicken a week ago, became violently ill, had abdominal pain, nausea and diarrhea. The diarrhea stopped, yet the pain is still severe and the patient finally presented to the emergency room. On workup he was found to have intra-abdominal interloop abscess and he is now being admitted for further care. We have been consult to help with medical management and high blood pressure 12-17 SUSPECT HE IS DIABETIC AND HYPERTENSIVE HAS HYPOKALEMIA WILL REPLACE WILL NEED DM EDUCATION PT DOES NOT BELIEVE AND LISTEN TO WHAT I AM SAYING SUSPECT WILL NOT BE VERY COMPLIANT WITH MEDICATION 12-18 patient's hemoglobin A1c is 11.0 will start on Levemir. We'll get diabetic education. We'll need to learn how to check sugars and give insulin. Patient appears quite upset with this news. I have discussed with him the need for education and the need to be compliant with medications and inability to live a normal life if he controls his blood sugars 12-19 patient wants to go home today has been cleared by surgery can be discharged to home will need prescriptions for his diabetes and hypertension Against my better judgment we'll send him home on pills for his diabetes and I suspect he will not take insulin Objective Vitals Vital Signs Date Time Temp Pulse Resp B/P (MAP) Pulse Ox O2 Delivery O2 Flow Rate FiO2 12/19/16 08:00 99.3 87 17 130/83 (99) 94 12/19/16 00:00 98.9 86 17 128/83 (98) 95 12/18/16 20:00 99.2 84 17 137/86 (103) 94 12/18/16 16:00 97.4 92 16 183/105 (131) 92 12/18/16 12:00 99.1 84 16 168/90 (116) 91 I/O 12/18/16 12/18/16 12/18/16 12/19/16 12/19/16 12/19/16 07:00 15:00 23:00 07:00 15:00 23:00 Intake Total 240 ml 100 ml 1520 ml 240 ml Output Total 1435 ml Balance 240 ml 100 ml 85 ml 240 ml Intake Oral 240 ml 1100 ml 240 ml IV Total 100 ml 420 ml Output Urine Total 1400 ml Drainage Total 35 ml # Voids 1 1 # Bowel Movements 3 Result Diagram: 12/19/16 0500 12/19/16 0500 Other Results Laboratory Tests Test 12/17/16 04:20 12/18/16 07:20 12/19/16 05:00 White Blood Count 18.5 TH/MM3 11.0 TH/MM3 10.4 TH/MM3 Red Blood Count 3.14 MIL/MM3 3.16 MIL/MM3 3.36 MIL/MM3 Hemoglobin 8.9 GM/DL 9.0 GM/DL 9.6 GM/DL Hematocrit 27.5 % 27.4 % 28.9 % Mean Corpuscular Volume 87.5 FL 86.8 FL 86.0 FL Mean Corpuscular Hemoglobin 28.3 PG 28.6 PG 28.5 PG Mean Corpuscular Hemoglobin Concent 32.3 % 32.9 % 33.1 % Red Cell Distribution Width 14.3 % 13.7 % 13.8 % Platelet Count 382 TH/MM3 390 TH/MM3 410 TH/MM3 Mean Platelet Volume 8.2 FL 7.3 FL 7.9 FL Neutrophils (%) (Auto) 77.9 % 70.7 % 64.1 % Lymphocytes (%) (Auto) 14.8 % 18.0 % 24.9 % Monocytes (%) (Auto) 5.5 % 8.2 % 8.3 % Eosinophils (%) (Auto) 1.1 % 2.4 % 2.2 % Basophils (%) (Auto) 0.7 % 0.7 % 0.5 % Neutrophils # (Auto) 14.4 TH/MM3 7.8 TH/MM3 6.6 TH/MM3 Lymphocytes # (Auto) 2.7 TH/MM3 2.0 TH/MM3 2.6 TH/MM3 Monocytes # (Auto) 1.0 TH/MM3 0.9 TH/MM3 0.9 TH/MM3 Eosinophils # (Auto) 0.2 TH/MM3 0.3 TH/MM3 0.2 TH/MM3 Basophils # (Auto) 0.1 TH/MM3 0.1 TH/MM3 0.1 TH/MM3 CBC Comment DIFF FINAL DIFF FINAL DIFF FINAL Differential Comment Blood Urea Nitrogen 10 MG/DL 7 MG/DL 8 MG/DL Creatinine 0.85 MG/DL 0.87 MG/DL 0.69 MG/DL Random Glucose 142 MG/DL 183 MG/DL 95 MG/DL Total Protein 6.8 GM/DL 6.8 GM/DL 7.1 GM/DL Albumin 1.4 GM/DL 1.4 GM/DL 1.6 GM/DL Calcium Level 7.7 MG/DL 8.3 MG/DL 8.8 MG/DL Phosphorus Level 1.8 MG/DL 3.0 MG/DL 3.8 MG/DL Magnesium Level 1.7 MG/DL 1.6 MG/DL 1.6 MG/DL Alkaline Phosphatase 98 U/L 97 U/L 107 U/L Aspartate Amino Transf (AST/SGOT) 17 U/L 16 U/L 19 U/L Alanine Aminotransferase (ALT/SGPT) 11 U/L 12 U/L 12 U/L Total Bilirubin 0.4 MG/DL 0.4 MG/DL 0.3 MG/DL Sodium Level 143 MEQ/L 140 MEQ/L 137 MEQ/L Potassium Level 2.9 MEQ/L 2.9 MEQ/L 2.8 MEQ/L Chloride Level 106 MEQ/L 101 MEQ/L 97 MEQ/L Carbon Dioxide Level 27.8 MEQ/L 31.3 MEQ/L 30.6 MEQ/L Anion Gap 9 MEQ/L 8 MEQ/L 9 MEQ/L Estimat Glomerular Filtration Rate 115 ML/MIN 112 ML/MIN 146 ML/MIN Hemoglobin A1c 11.0 % Free Thyroxine 1.63 NG/DL Thyroid Stimulating Hormone 3rd Gen 2.250 uIU/ML Imaging Last Impressions Abdomen/Pelvis CT 12/13/16 1000 Signed Impressions: Service Date/Time: November 15:37 - CONCLUSION: 1. Well-positioned percutaneous drainage catheter with significant interval improvement of previously noted large 10.8 cm mid abdominal abscess. Residual small abscess cavity measuring 1.8 x 4.7 x 3.5 cm. 2. Interval development of multiple additional abdominal abscesses, as above. 3. Secondarily inflamed/reactive dilatation of several loops of small bowel particularly in the anterior left lower quadrant. 4. Redemonstration of indeterminant but stable hepatic lesions. These do not have the characteristic appearance of hepatic absceses. Again, hepatic ultrasound or MRI liver mass protocol is recommended for further characterization on outpatient basis. 5. Remainder of the exam is unchanged. Findings were personally discussed with Dr. Armenta at the time of this dictation. Julius Henley MD Abdomen X-Ray 12/09/16 0746 Signed Impressions: Service Date/Time: Friday, December 09, 2016 07:54 - CONCLUSION: There is no free air or definite signs of small bowel obstruction. However, the small bowel gas pattern is not completely normal. Consider followup to ensure resolution. Behzad Gutierrez MD Abscess Drainage CT 12/09/16 0000 Signed Impressions: Service Date/Time: Friday, December 09, 2016 17:41 - CONCLUSION: Uncomplicated CT guided drainage. 10 cc of couch, purulent fluid was aspirated from the catheter and sent to laboratory for analysis Kirt Angeles MD Objective Remarks GENERAL: Awake alert and oriented talkative not so cooperative not happy with his new diagnoses SKIN: Warm and dry. HEAD: Atraumatic. Normocephalic. EYES: Pupils equal and round. No scleral icterus. No injection or drainage. Extraocular muscles intact ENT: No nasal bleeding or discharge. Mucous membranes pink and moist. Tongue is midline NECK: Trachea midline. No JVD. Neck is supple CARDIOVASCULAR: Regular rate and rhythm. S1-S2 no S3 or S4 no heave or thrill or rub RESPIRATORY: No accessory muscle use. Clear to auscultation. Breath sounds equal bilaterally. GASTROINTESTINAL: Abdomen soft, non-tender, nondistended. Hepatic and splenic margins not palpable. MUSCULOSKELETAL: Extremities without clubbing, cyanosis, or edema. No obvious deformities. NEUROLOGICAL: Awake and alert. No obvious cranial nerve deficits. Motor grossly within normal limits. Five out of 5 muscle strength in the arms and legs. Normal speech. PSYCHIATRIC: Appropriate mood and affect; insight and judgment normal. Procedures AMISHA ARMENTA MD DATE OF SURGERY: 12/14/2016 PREOPERATIVE DIAGNOSIS Interloop abdominal abscesses status post percutaneous drainage. POSTOPERATIVE DIAGNOSIS Interloop abdominal abscesses status post percutaneous drainage. Perforated appendicitis with necrosis of medial portion of the cecum, spillage of the stool. OPERATIVE PROCEDURE Exploratory laparotomy, evacuation intra-abdominal abscesses, lysis of adhesions and right hemicolectomy with primary anastomosis. Medications and IVs Current Medications Ondansetron HCl (Zofran Inj) 4 mg ONCE ONCE IVP Last administered on t 08:11; Start 12/09/16 at 08:00; Stop 12/09/16 at 08:01; Status DC Sodium Chloride 1,000 ml @ 1,000 mls/hr Q1H IV Last administered on 12/09/16 08:10; Start 12/09/16 at 07:46; Stop 12/09/16 at 08:45; Status DC Sodium Chloride (NS Flush) 2 ml UNSCH PRN IV FLUSH FLUSH AFTER USING IV ACCESS Last administered on 12/09/16 10:37; Start 12/09/16 at 08:00; Stop 12/09/16 at 13:31; Status DC Ketorolac Tromethamine (Toradol Inj) 30 mg ONCE ONCE IVP Last administered on 12/09/16 08:13; Start 12/09/16 at 08:00; Stop 12/09/16 at 08:01; Status DC Vancomycin HCl 1000 mg/Sodium Chloride 250 ml @ 250 mls/hr ONCE ONCE IV Last administered on 12/09/16 10:38; Start 12/09/16 at 09:00; Stop 12/09/16 at 09:59 ; Status DC Piperacillin Sod/ Tazobactam Sod 100 ml @ 200 mls/hr ONCE ONCE IV Last administered on 12/09/16 09:31; Start 12/09/16 at 09:00; Stop 12/09/16 at 09:29 ; Status DC Sodium Chloride 1,000 ml @ 999 mls/hr BOLUS ONCE IV Last administered on 12/09 09:31; Start 12/09/16 at 09:00; Stop 12/09/16 at 10:00; Status DC Iohexol (Omnipaque 350 Inj) 80 ml STK-MED ONCE IV PUSH Last administered on 08:50; Start 12/09/16 at 08:50; Stop 12/09/16 at 08:51; Status DC Sodium Chloride 1,000 ml @ 100 mls/hr Q10H IV Last administered on 12/11/16 05:36; Start 12/09/16 at 12:56; Stop 12/14/16 at 14:05; Status DC Sodium Chloride (NS Flush) 2 ml UNSCH PRN IV FLUSH FLUSH AFTER USING IV ACCESS Last administered on 12/12/16 17:04; Start 12/09/16 at 13:00; Stop 12/14/16 at 14:05; Status DC Sodium Chloride (NS Flush) 2 ml BID IV FLUSH Last administered on 12/13/16 21: 03; Start 12/09/16 at 21:00; Stop 12/14/16 at 14:06; Status DC Ondansetron HCl (Zofran Inj) 4 mg Q6H PRN IV NAUSEA OR VOMITING; Start at 13:00; Stop 12/14/16 at 14:05; Status DC Famotidine (Pepcid) 20 mg BID PO Last administered on 12/13/16 21:03; Start at 21:00; Stop 12/14/16 at 14:05; Status DC Docusate Sodium (Colace) 100 mg BID PO Last administered on 12/12/16 21:04; Start 12/09/16 at 21:00; Stop 12/14/16 at 14:05; Status DC Vancomycin HCl 1000 mg/Sodium Chloride 250 ml @ 250 mls/hr Q12H IV Last administered on 12/13/16 23:17; Start 12/09/16 at 23:00; Stop 12/14/16 at 14:05 ; Status DC Miscellaneous Information (Post-op Orders (for Pharmacy)) STAT ONCE XX ; Start 12/09/16 at 13:00; Stop 12/09/16 at 13:34; Status DC Oxycodone/ Acetaminophen (Percocet 5-325 Mg) 1 tab Q4H PRN PO PAIN SCALE 3 TO 5 Last administered on 12/12/16 17:04; Start 12/09/16 at 13:00; Stop 12/14/16 at 14:05; Status DC Morphine Sulfate (Morphine Inj) 2 mg Q3H PRN IV PAIN 6-10 Last administered on 12/09/16 19:15; Start 12/09/16 at 13:00; Stop 12/14/16 at 14:05; Status DC Naloxone HCl (Narcan Inj) 0.4 mg UNSCH PRN IV SEE LABEL COMMENTS; Start at 13:00; Stop 12/14/16 at 14:05; Status DC Piperacillin Sod/ Tazobactam Sod 50 ml @ 100 mls/hr Q8H IV Last administered on 12/18/16 03:27; Start 12/09/16 at 18:00; Stop 12/18/16 at 12:08; Status DC Lidocaine HCl (Xylocaine 1% Inj) 20 ml STK-MED ONCE .ROUTE Last administered on 12/09/16 16:54; Start 12/09/16 at 16:54; Stop 12/09/16 at 16:55; Status DC Fentanyl Citrate (fentaNYL INJ) 100 mcg STK-MED ONCE .ROUTE Last administered on 12/09/16 17:00; Start 12/09/16 at 17:00; Stop 12/09/16 at 17:01; Status DC Midazolam HCl (Versed Inj) 2 mg STK-MED ONCE .ROUTE Last administered on 17:00; Start 12/09/16 at 17:00; Stop 12/09/16 at 17:01; Status DC Sodium Chloride (NS Inj) 10 ml DAILY IRRIGATION Last administered on 12/16/16 07:39; Start 12/10/16 at 09:00 Acetaminophen (Ofirmev 1000 Mg/ 100 ml Inj) 1,000 mg Q8H PRN IV TEMP > 101; Start 12/09/16 at 22:00 Lisinopril (Prinivil) 10 mg DAILY PO Last administered on 12/13/16 09:29; Start 12/11/16 at 19:34; Stop 12/14/16 at 14:05; Status DC Metoprolol Succinate (Toprol Xl) 25 mg DAILY PO Last administered on 12/13/16 09:29; Start 12/11/16 at 19:35; Stop 12/14/16 at 14:05; Status DC Enalaprilat (Vasotec Inj) 1.25 mg Q4H PRN IV PUSH SBP > OR = TO 160 Last administered on 12/16/16 17:20; Start 12/13/16 at 02:15 Diatrizoate Meglum/ Diatrizoate Sod ( Gastroview Liq) 18 ml ONCE ONCE PO Last administered on 12/13/16 11:17; Start 12/13/16 at 09:33; Stop 12/13/16 at 09:59; Status DC Loperamide HCl (Imodium) 2 mg Q6H PRN PO diarrhea Last administered on 16:07; Start 12/13/16 at 15:30; Stop 12/14/16 at 14:05; Status DC Iohexol (Omnipaque 350 Inj) 91 ml STK-MED ONCE IVCONTRAST Last administered on 12/13/16t 15:47; Start 12/13/16 at 15:47; Stop 12/13/16 at 15:48; Status DC Acetaminophen 100 ml @ As Directed STK-MED ONCE IV ; Start 12/14/16 at 09:47; Stop 12/14/16 at 09:48; Status DC Famotidine (Pepcid Inj) 20 mg STK-MED ONCE .ROUTE ; Start 12/14/16 at 09:48; Stop 12/14/16 at 09:49; Status DC Lactated Ringer's 1,000 ml @ 30 mls/hr Q24H PRN IV SEE LABEL COMMENTS; Start at 10:15; Stop 12/14/16 at 14:05; Status DC Sodium Chloride 500 ml @ 30 mls/hr [id number] PRN IV SEE LABEL COMMENTS; Start at 10:15; Stop 12/14/16 at 14:05; Status DC Povidone Iodine (Betadine 5% Antisepsis Kit) 1 applic CERTIFIED COMPOSITES TECHNICIAN PRN EACH NARE SEE LABEL COMMENTS; Start 12/14/16 at 10:15; Stop 12/17/16 at 10:14; Status DC Chlorhexidine Gluconate (Chlorhexidine 2% Cloth) 3 pack CERTIFIED COMPOSITES TECHNICIAN PRN TOPICAL SEE LABEL COMMENTS; Start 12/14/16 at 10:15; Stop 12/17/16 at 10:14; Status DC Insulin Human Regular (NovoLIN R INJ) See Protocol Table ... CERTIFIED COMPOSITES TECHNICIAN PRN SQ SEE PROTOCOL TABLE; Start 12/14/16 at 10:15; Stop 12/17/16 at 10:14; Status DC Metoprolol Tartrate (Lopressor) 25 mg CERTIFIED COMPOSITES TECHNICIAN PRN PO SEE LABEL COMMENTS; Start 12/14/16 at 10:15; Stop 12/17/16 at 10:14; Status DC Morphine Sulfate (*morphine INJ PERIprocedure ONLY) 8 mg STK-MED ONCE .ROUTE Last administered on 12/14/16t 12:55; Start 12/14/16 at 12:55; Stop 12/14/16 at 12:56; Status DC Morphine Sulfate (*morphine INJ PERIprocedure ONLY) 8 mg STK-MED ONCE .ROUTE Last administered on 12/14/16 13:03; Start 12/14/16 at 13:03; Stop 12/14/16 at 13:04; Status DC Morphine Sulfate (*morphine INJ PERIprocedure ONLY) 8 mg STK-MED ONCE .ROUTE Last administered on 12/14/16 13:16; Start 12/14/16 at 13:16; Stop 12/14/16 at 13:17; Status DC Naloxone HCl (Narcan Inj) 0.4 mg UNSCH PRN IV PUSH RESPIRATORY RATE LESS THAN 10; Start 12/14/16 at 14:15 Morphine Sulfate (Morphine 1 Mg/ ml MOLTEN IRON POURER) 30 mg UNSCH IV Last administered on 03:01; Start 12/14/16 at 14:15; Stop 12/17/16 at 11:04; Status DC MOLTEN IRON POURER Dosage Infused (Pha) 1 Q8HR .XX Last administered on 12/17/16 05:56; Start 12/14/16 at 14:15; Stop 12/17/16 at 11:04; Status DC Fluconazole/ Sodium Chloride 50 ml @ 50 mls/hr Q24H IV Last administered on 20:46; Start 12/14/16 at 16:00; Stop 12/18/16 at 12:08; Status DC Miscellaneous Information ALL NURSING DEPARTME... UNSCH PRN .XX SEE LABEL COMMENTS; Start 12/14/16 at 13:00; Stop 12/15/16 at 12:59; Status DC Oxybenzone/ Padimate O/ Dimethicone (Blistex Lip Buckner) 4.25 applic STK-MED ONCE TOPICAL Last administered on 12/14/16 15:04; Start 12/14/16 at 15:04; Stop at 15:05; Status DC Metoprolol Tartrate (Lopressor Inj) 5 mg Q6H IV PUSH Last administered on 16:33; Start 12/15/16 at 17:00; Stop 12/15/16 at 20:24; Status DC Lisinopril (Prinivil) 10 mg Q12HR NG Last administered on 12/17/16 09:41; Start 12/15/16 at 21:00; Stop 12/17/16 at 13:12; Status DC Clonidine (Catapres) 0.1 mg Q6H PRN PO SBP>160, DBP>90 Last administered on 15:36; Start 12/15/16 at 22:45 Lorazepam (Ativan Inj) 0.5 mg ONCE ONCE IV PUSH Last administered on 22:50; Start 12/15/16 at 22:45; Stop 12/16/16 at 10:33; Status DC Sodium Chloride 1,000 ml @ 40 mls/hr Q24H IV Last administered on 12/17/16 14 :52; Start 12/16/16 at 10:00; Stop 12/18/16 at 12:45; Status DC Enoxaparin Sodium (Lovenox Inj) 40 mg Q12H SQ Last administered on 12/18/16 23 :31; Start 12/16/16 at 11:00 Dextrose (D50w (Vial) Inj) 50 ml UNSCH PRN IV HYPOGLYCEMIA-SEE COMMENTS; Start 12/16/16 at 12:00 Glucagon (Glucagon Inj) 1 mg UNSCH PRN OTHER HYPOGLYCEMIA-SEE COMMENTS; Start 12/16/16 at 12:00 Insulin Aspart (NovoLOG SUPPLEMENTAL SCALE) 1 ACHS SLIDING SCALE SQ Last administered on 12/18/16 17:37; Start 12/16/16 at 12:00 Clonidine (Catapres-Tts 0.1mg Patch.7d) 1 patch Q7D T-DERMAL ; Start 12/16/16 at 13:00; Stop 12/16/16 at 13:00; Status DC Amlodipine Besylate (Norvasc) 5 mg ONCE ONCE PO Last administered on 13:06; Start 12/16/16 at 12:00; Stop 12/16/16 at 12:08; Status DC Amlodipine Besylate (Norvasc) 5 mg DAILY PO Last administered on 12/17/16 09: 40; Start 12/17/16 at 09:00; Stop 12/17/16 at 13:12; Status DC Potassium Phosphate 15 mmol/ Sodium Chloride 155 ml @ 38.75 mls/ hr ONCE ONCE IV Last administered on 12/16/16 14:29; Start 12/16/16 at 14:00; Stop at 17:59; Status DC Miscellaneous Information 1 Q7D T-DERMAL ; Start 12/23/16 at 13:00 Potassium Chloride (KCl) 40 meq ONCE ONCE PO Last administered on 12/17/16 09 :40; Start 12/17/16 at 08:00; Stop 12/17/16 at 08:12; Status DC Potassium Chloride (KCl) 40 meq ONCE ONCE PO Last administered on 12/17/16 12 :02; Start 12/17/16 at 10:00; Stop 12/17/16 at 10:01; Status DC Magnesium Sulfate/ Dextrose 100 ml @ 100 mls/hr Q1H IV Last administered on 12:00; Start 12/17/16 at 08:15; Stop 12/17/16 at 10:14; Status DC Sodium Phosphate 30 mmol/Sodium Chloride 260 ml @ 43.333 mls/ hr ONCE ONCE IV Last administered on 12/17/16 14:53; Start 12/17/16 at 09:00; Stop 12/17/16 at 14:59; Status DC Oxycodone/ Acetaminophen (Percocet 5-325 Mg) 1 tab Q4H PRN PO PAIN 3-5 Last administered on 12/19/16 08:57; Start 12/17/16 at 11:15 Morphine Sulfate (Morphine Inj) 4 mg Q3H PRN IV PUSH PAIN 6-10; Start 12/17/16 at 11:15; Stop 12/18/16 at 13:15; Status DC Furosemide (Lasix Inj) 40 mg ONCE ONCE IV PUSH Last administered on 12/17/16 14:51; Start 12/17/16 at 11:15; Stop 12/17/16 at 11:27; Status DC Amlodipine Besylate (Norvasc) 5 mg BID PO Last administered on 12/18/16 20:51 ; Start 12/17/16 at 21:00 Lisinopril (Prinivil) 20 mg Q12HR NG Last administered on 12/18/16 20:51; Start 12/17/16 at 21:00 Hydrochlorothiazide (Hydrodiuril) 25 mg ONCE ONCE PO Last administered on 12/17 14:51; Start 12/17/16 at 13:15; Stop 12/17/16 at 13:16; Status DC Hydrochlorothiazide (Hydrodiuril) 25 mg DAILY PO Last administered on 10:11; Start 12/18/16 at 09:00 Insulin Detemir (Levemir Inj) 10 units HS SQ Last administered on 12/18/16 21: 00; Start 12/18/16 at 21:00 Magnesium Sulfate/ Dextrose 100 ml @ 100 mls/hr Q1H IV Last administered on 15:16; Start 12/18/16 at 12:00; Stop 12/18/16 at 13:59; Status DC Potassium Chloride (KCl) 40 meq ONCE ONCE PO Last administered on 12/18/16 13 :19; Start 12/18/16 at 13:00; Stop 12/18/16 at 13:01; Status DC Potassium Chloride (KCl) 40 meq ONCE ONCE PO Last administered on 12/18/16 15 :16; Start 12/18/16 at 15:00; Stop 12/18/16 at 15:01; Status DC Fluconazole (Diflucan) 400 mg DAILY PO ; Start 12/19/16 at 09:00 Amoxicillin/ Clavulanate Potassium (Augmentin) 500 mg Q8HR PO Last administered on 12/19/16 05:49; Start 12/18/16 at 14:00 Morphine Sulfate (Morphine Inj) 2 mg Q3H PRN IV PUSH PAIN 6-10 Last administered on 12/18/16 15:35; Start 12/18/16 at 14:15 Magnesium Oxide (Mag-Ox) 800 mg ONCE ONCE PO Last administered on 12/19/16 08 :53; Start 12/19/16 at 08:15; Stop 12/19/16 at 08:16; Status DC Potassium Chloride (KCl) 40 meq ONCE ONCE PO ; Start 12/19/16 at 08:15; Stop at 08:16; Status DC Potassium Chloride (KCl) 40 meq Q12HR PO ; Start 12/19/16 at 09:00 Urinary Catheter: No A/P Problem List: (1) Intra-abdominal abscess ICD Code: K65.1 - Peritoneal abscess Status: Acute (2) Sepsis ICD Code: A41.9 - Sepsis, unspecified organism Status: Acute (3) Hypertension ICD Code: I10 - Essential (primary) hypertension (4) Hypokalemia ICD Code: E87.6 - Hypokalemia (5) Hyperglycemia ICD Code: R73.9 - Hyperglycemia, unspecified Assessment and Plan Abdominal abscess status post drainage by interventional radiology Remains on antibiotics per infectious disease and surgery Hypertension started on Catapres patch due to being nothing by mouth at the moment-switch to by mouth medications Hyperglycemia we'll check a hemoglobin A1c suspect that patient will be diabetic hemoglobin A1c is 11.0 Hypokalemia Will replace we'll replace and recheck will need replacement A.m. labs check a CBC CMP TSH free T4 hemoglobin A1c magnesium and phosphorus A.m. labs Discussed with patient and RN Explained the patient that we will make some lifestyle changes including controlling blood sugars and treating his high blood pressure we'll switch to oral diabetic medications Hai Mendez DO Dec 19, 2016 10:15
[2016-12-19] MEDS ORDERED: HYDR25TA5 PO (10:20)
[2016-12-19] MEDS ORDERED: METF850T PO (10:20)
[2016-12-19] MEDS ORDERED: AMLO5 PO (10:20)
[2016-12-19] MEDS ORDERED: POTA-243 PO (10:20)
[2016-12-19] MEDS ORDERED: LISI-515 NG (10:20)
[2016-12-19] MEDS ORDERED: CONTOUR1 XX (10:23)
--- NOTE | 2016-12-19 10:24 | PD.CAR.PN ---
CVT Progress Note Subjective/Hospital Course: 12/10/16 Patient doing well at this time Abdomen soft with active bowel sounds and grayish yellow pus draining from the percutaneously placed pigtail catheter Will repeat CT scan of abdomen and pelvis or Saturday, but this time with oral contrast to better delineate the source of this abscess Its my opinion is probably arising either from appendix or Meckel's diverticulum the latter being most likely Antibiotic regimen reinforced with nurses today 12/11/16 Patient doing well at this time Abdomen is soft with active bowel sounds and pigtail catheter is draining purulent material We will order CT of abdomen and pelvis with oral contrast for in see how much of this is remaining and how to proceed further 12/12/16 Patient doing very well Abdomen soft with active bowel sounds and mid abdominal masses deflated and almost gone although there must be still some purulent material in it Pigtail catheter still draining some purulent material Patient having several bowel movements and last few days which is semisolid and GI function is fully reestablished CT abdomen and pelvis with by mouth and IV contrast tomorrow to assess for residual presence of this collection and then decide which way to go with therapy 12/13/16 Patient underwent today repeat CAT scan of the abdomen which reveals multiple intra-abdominal abscesses in the pelvis as well as interloop abscesses in multiple locations in the lower abdomen. This signified the failure of conservative therapy and patient will need exploratory laparotomy washout and likely colon resection for this seems to be the most likely origin of this Patient ate today will remain on antibiotics will be taken to the operating room for surgery tomorrow Abdomen remains soft with hypoactive bowel sounds and no rebound or guarding so these abscesses at this point are indolent 12/15/16 Patient underwent yesterday successful exploratory laparotomy washout and right partial hemicolectomy for perforated cecum at the site of gangrenous appendicitis Postoperatively patient is doing well Abdomen soft active bowel sounds Incision is clean and dry NG tube has been adjusted Transfer to floor and continue nothing by mouth Decrease IV rate 12/16/16 Patient doing okay Since transfer to the floor did not receive any IV fluids because the orders were not transcribed NG tube is on my arrival almost out and in the posterior pharynx instead of stomach Patient has no SCDs which he should've had all along Hasn't been taken out of bed since arrival to the floor yesterday Incision is clean and dry Plan DC NG tube DC Steve Out of bed/encouraged deep breathing and ambulation for otherwise patient will develop atelectasis and pneumonia ID consult is appreciated 12/17/16 Patient doing very well Incision clean and dry and abdomen soft with active bowel sounds, mildly tender at the incision but no rebound or guarding Patient passing gas and had 2 bowel movements today Will advance to clear liquids changed to by mouth pain medication and discontinue MAT WEAVER pump Patient needs to actively ambulate Remove pelvic FREDA 12/18/16 Incision clean and dry Abdomen soft active bowel sounds patient passing gas and having daily bowel movements Will advance diet Will keep on IV antibiotics till infectious disease thinks we can switch him to by mouth DC second FREDA Plan to discharge patient tomorrow all things equal 12/19/16 Incision clean and dry Abdomen soft active bowel sounds patient having regular bowel movements and passing gas Patient discharged yesterday for today it still appears to be in the hospital for some reason Expect patient to go home today Discussed with internal medicine as far as antihypertensives and diabetic drugs go I'm afraid the patient will be noncompliant with his medical care based on my impressions throughout the stay Objective: Vital Signs Date Time Temp Pulse Resp B/P (MAP) Pulse Ox O2 Delivery O2 Flow Rate FiO2 12/19/16 08:00 99.3 87 17 130/83 (99) 94 12/19/16 00:00 98.9 86 17 128/83 (98) 95 12/18/16 20:00 99.2 84 17 137/86 (103) 94 12/18/16 16:00 97.4 92 16 183/105 (131) 92 12/18/16 12:00 99.1 84 16 168/90 (116) 91 Labs: Laboratory Tests Test 12/19/16 05:00 White Blood Count 10.4 TH/MM3 (4.0-11.0) Red Blood Count 3.36 MIL/MM3 (4.50-5.90) Hemoglobin 9.6 GM/DL (13.0-17.0) Hematocrit 28.9 % (39.0-51.0) Mean Corpuscular Volume 86.0 FL (80.0-100.0) Mean Corpuscular Hemoglobin 28.5 PG (27.0-34.0) Mean Corpuscular Hemoglobin Concent 33.1 % (32.0-36.0) Red Cell Distribution Width 13.8 % (11.6-17.2) Platelet Count 410 TH/MM3 (150-450) Mean Platelet Volume 7.9 FL (7.0-11.0) Neutrophils (%) (Auto) 64.1 % (16.0-70.0) Lymphocytes (%) (Auto) 24.9 % (9.0-44.0) Monocytes (%) (Auto) 8.3 % (0.0-8.0) Eosinophils (%) (Auto) 2.2 % (0.0-4.0) Basophils (%) (Auto) 0.5 % (0.0-2.0) Neutrophils # (Auto) 6.6 TH/MM3 (1.8-7.7) Lymphocytes # (Auto) 2.6 TH/MM3 (1.0-4.8) Monocytes # (Auto) 0.9 TH/MM3 (0-0.9) Eosinophils # (Auto) 0.2 TH/MM3 (0-0.4) Basophils # (Auto) 0.1 TH/MM3 (0-0.2) CBC Comment DIFF FINAL Differential Comment Blood Urea Nitrogen 8 MG/DL (7-18) Creatinine 0.69 MG/DL (0.60-1.30) Random Glucose 95 MG/DL (74-106) Total Protein 7.1 GM/DL (6.4-8.2) Albumin 1.6 GM/DL (3.4-5.0) Calcium Level 8.8 MG/DL (8.5-10.1) Phosphorus Level 3.8 MG/DL (2.5-4.9) Magnesium Level 1.6 MG/DL (1.5-2.5) Alkaline Phosphatase 107 U/L (45-117) Aspartate Amino Transf (AST/SGOT) 19 U/L (15-37) Alanine Aminotransferase (ALT/SGPT) 12 U/L (12-78) Total Bilirubin 0.3 MG/DL (0.2-1.0) Sodium Level 137 MEQ/L (136-145) Potassium Level 2.8 MEQ/L (3.5-5.1) Chloride Level 97 MEQ/L (98-107) Carbon Dioxide Level 30.6 MEQ/L (21.0-32.0) Anion Gap 9 MEQ/L (5-15) Estimat Glomerular Filtration Rate 146 ML/MIN (>89) Result Diagram: 12/19/16 0500 12/19/16 0500 Mili Armenta MD Dec 19, 2016 10:24
[2016-12-19] MEDS ORDERED: MAGN400T2 PO (10:26)
[2016-12-19] MEDS: HYDROCHLOROTHIAZIDE 25 MG TAB PO SCH (11:23)
[2016-12-19] MEDS: LISINOPRIL 20 MG TAB NG SCH (11:24)
[2016-12-19] MEDS: amLODIPine BESYLATE 5 MG TAB PO SCH (11:24)
[2016-12-19 12:00] VITALS: BP 143/79; PULSE 88; RESP 17; TEMP 98.6; O2SAT 93
[2016-12-19] MEDS: ENOXAPARIN SODIUM 40 MG/0.4 ML SYRINGE SQ SCH (12:37)
[2016-12-23] MEDS ORDERED: REMOVE OLD CATAPRES (CLONIDINE) PATCH T-DERMAL SCH (13:00)
--- NOTE | 2017-01-03 09:18 | MD ---
cc: MILI AYALA MD ADMISSION DATE: 12/09/2016 DISCHARGE DATE: 12/19/2016 HISTORY OF PRESENT DISEASE This is a 51-year-old male who presented initially with a week of abdominal pain. He was transferred to the main hospital from [place], was found to have large interloop abdominal abscesses. The patient had initial CT guided drainage of the abscess, but after several days of antibiotic therapy and conservative management with drainage, the patient developed multiple interloop abscesses in addition to this one. Therefore, the patient was taken to the operating room, underwent exploratory laparotomy, evacuation of the abscesses and partial right colectomy for perforated appendicitis with leaking intestinal contents. Drains replaced. Postoperative care was uneventful. The patient remained on intravenous antibiotics and was started on clear liquids, advanced to the diet and discharged with a clean well-healing incision with instructions to follow up in my office. Mili MARTIN/JERICHO /5:41 PM /9:07 AM
== END 2016-12-19 13:54 | disposition home or self-care (01) | DRG 853 ==
LOC: PHED 07:11 → PHEDA 09:47 → N05A 11:47 → N03B 12-14 14:17 → N07A 12-16 01:49
PROVIDERS: ADMIT Surgery; ATTEND Surgery
PROC: 0W9J3ZX Drainage of Pelvic Cavity, Percutaneous Approach, Diagnostic (ICD-10-PCS; 2016-12-09)
PROC: 0W9G30Z Drainage of Peritoneal Cavity with Drainage Device, Percutaneous Approach (ICD-10-PCS; 2016-12-09)
PROC: 0W9J0ZX Drainage of Pelvic Cavity, Open Approach, Diagnostic (ICD-10-PCS; 2016-12-14)
PROC: 0DTF0ZZ Resection of Right Large Intestine, Open Approach (ICD-10-PCS; principal; 2016-12-14 10:13)
DX: A41.9 Sepsis, unspecified organism (principal); K35.2 Acute appendicitis with generalized peritonitis; F17.200 Nicotine dependence, unspecified, uncomplicated; I10 Essential (primary) hypertension; E11.65 Type 2 diabetes mellitus with hyperglycemia; E87.6 Hypokalemia
CPT/HCPCS: 74000; 74177; 75989; 80048; 80053; 80076; 82948; 83036; 83605; 83690; 83735; 84100; 84155; 84439; 84443; 85025; 85027; 85610; 85730; 86850; 86900; 86901; 86920; 87015; 87040; 87070; 87102; 87106; 87116; 87185; 87205; 87206; 87641; 88307; 93005; 94150; 96361; 96374; 96375; C1729; C1769; J0131; J1100; J1450; J1650; J1815; J1885; J1940; J2060; J2250; J2270; J2370; J2405; J2543; J2710; J3010; J3370; J3475; J7030; J7050; Q9963; Q9967